=== PATIENT | male | born 1960 | race Caucasian/White ===

== ENCOUNTER → 2024-03-11 | Outpatient (CLI) | payer BC, SELFPAY ==
--- NOTE | 2024-03-11 | XR_ITS ---
Examination: PA lateral chest 2 views TECHNIQUE: Upright PA lateral chest 2 views Exam date and time: March 11, 2024 at 1306 hours INDICATIONS: Hemoptysis beginning November 2023. FINDINGS: 19 x 26 mm pulmonary mass right upper lobe Normal heart size Mild prominence left atrium Pulmonary mass left lower lobe posteriorly 5.1 x 5.2 cm No lobar pneumonia or pulmonary edema IMPRESSION: Pulmonary masses as above, differential would include lung carcinoma, pulmonary nodular metastatic disease Recommend CT chest post intravenous contrast follow-up
[2024-03-11 10:55] LABS: Misc Send Out* See Sep Rpt
[2024-03-11 11:15] LABS: Basophils # (Auto) 0.1 Thou/mm3 (0.0-0.2); Basophils % (Auto) 1 % (0-2.5); Eosinophils # (Auto) 0.3 Thou/mm3 (0.0-0.5); Eosinophils % (Auto) 3 % (0-10); Hematocrit 46.1 % (41.0-53.0); Hemoglobin 15.7 g/dL (13.5-16.0); Immature Granulocytes % (Auto) 0 % (0-0); Immature Granulocytes Auto 0.03 Thou/mm3 (0.00-0.00); Lymphocytes # (Auto) 2.1 Thou/mm3 (1.0-4.8); Lymphocytes % (Auto) 24 % (10-50); Mean Corpuscular HGB Conc 34.1 g/dl (31.0-37.0); Mean Corpuscular Hemoglobin 29.3 pg (25.0-35.0); Mean Corpuscular Volume 86 fL (80-100); Monocytes # (Auto) 0.7 Thou/mm3 (0.0-0.8); Monocytes % (Auto) 7 % (0-12); Neutrophils # (Auto) 5.6 Thou/mm3 (1.8-7.7); Neutrophils % (Auto) 65 % (37-80); Nucleated Red Blood Cell % 0 /100 WBC (0); Platelet Count 258 Thou/mm3 (140-440); RDW Standard Deviation 41.6 fL (35.1-43.9); Red Blood Count 5.35 Miln/mm3 (4.50-5.90); White Blood Count 8.7 Thou/mm3 (3.8-10.6)
[2024-03-11 11:26] LABS: Glucose Estimated Average 120 mg/dL (80-131); Hemoglobin A1C 5.8 % Hgb (4.8-6.0)
[2024-03-11 11:38] LABS: Alanine Aminotransferase 10 U/L (10-49); Albumin, Serum 4.4 gm/dL (3.4-4.8); Albumin/Globulin Ratio 1.8 (1.2-2.2); Alkaline Phosphatase 71 U/L (46-116); Anion Gap 7 (7-16); Aspartate Amino Transferase 10 U/L (0-34); BUN/Creatinine Ratio 13 Ratio (12-20); Bilirubin,Total 0.4 mg/dL (0.3-1.2); Blood Urea Nitrogen 12 mg/dL (9-23); Calcium 9.5 mg/dL (8.3-10.6); Calcium (Corrected) 9.5 mg/dL (8.5-10.1); Carbon Dioxide 28.5 mMol/L (20.0-31.0); Chloride 104 mMol/L (98-107); Creatinine (Component) 0.9 mg/dL (0.6-1.3); Globulin 2.4 gm/dL (2.3-3.5); Glucose 93 mg/dL (74-106); Osmolality,Calculated 277 (275-295); Potassium 4.3 mMol/L (3.4-5.1); Sodium 139 mMol/L (136-145); Thyroid Stimulating Hormone 1.12 uIU/mL (0.55-4.78); Total Protein 6.8 gm/dL (5.7-8.2); eGFR > 60 See Note
[2024-03-11 11:43] LABS: Ferritin 103 ng/mL (10.5-307.3); PSA Medicare Annual Scrn 2.07 ng/mL (0-4.00); T4 (Thyroxine) 7.6 mcg/dL (4.5-10.9); Total Iron Binding Capacity 305 mcg/dL (250-425)
[2024-03-17 06:52] LABS: Homocysteine* 14.6 umol/L (<11.4); Methylmalonic Acid, GC/MS/MS* 204 nmol/L (69-390)
== END | disposition home or self-care (01) ==
LOC: COPL 10:24 → CDIM 10:25 → COPL 10:46
PROVIDERS: PCP Family Medicine; Referring Provider Nurse Practitioner Family; Visit Provider Radiology Diagnostic Radiology
DX: R91.8 Other nonspecific abnormal finding of lung field (principal); D64.9 Anemia, unspecified; R53.83 Other fatigue; Z12.5 Encounter for screening for malignant neoplasm of prostate
CPT/HCPCS: 36415; 71046; 80053; 82728; 83036; 83090; 83550; 83921; 84153; 84436; 84443; 85025; G0103

== ENCOUNTER → 2024-03-13 | Outpatient (CLI) | payer BC, SELFPAY ==
[2024-03-17 06:51] LABS: Fecal Globin Result NOT DETECTED (NOT DETECTED)
== END | disposition home or self-care (01) ==
LOC: SLDO 08:23
PROVIDERS: PCP Family Medicine; Referring Provider Nurse Practitioner Family; Visit Provider Nurse Practitioner Family
DX: Z12.11 Encounter for screening for malignant neoplasm of colon (principal)
CPT/HCPCS: 82274; G0328

== ENCOUNTER → 2024-04-25 | Outpatient (CLI) | payer OTHER, SELFPAY ==
[2024-04-25 15:49] LABS: Basophils # (Auto) 0.1 Thou/mm3 (0.0-0.2); Basophils % (Auto) 1 % (0-2.5); Eosinophils # (Auto) 0.2 Thou/mm3 (0.0-0.5); Eosinophils % (Auto) 3 % (0-10); Hematocrit 49.4 % (41.0-53.0); Hemoglobin 16.2 g/dL (13.5-16.0); Immature Granulocytes % (Auto) 0 % (0-0); Immature Granulocytes Auto 0.03 Thou/mm3 (0.00-0.00); Lymphocytes % (Auto) 23 % (10-50); Mean Corpuscular HGB Conc 32.8 g/dl (31.0-37.0); Mean Corpuscular Hemoglobin 28.8 pg (25.0-35.0); Mean Corpuscular Volume 88 fL (80-100); Monocytes # (Auto) 0.7 Thou/mm3 (0.0-0.8); Monocytes % (Auto) 8 % (0-12); Neutrophils # (Auto) 5.8 Thou/mm3 (1.8-7.7); Neutrophils % (Auto) 66 % (37-80); Nucleated Red Blood Cell % 0 /100 WBC (0); Platelet Count 304 Thou/mm3 (140-440); RDW Standard Deviation 42.9 fL (35.1-43.9); Red Blood Count 5.63 Miln/mm3 (4.50-5.90); White Blood Count 8.8 Thou/mm3 (3.8-10.6)
[2024-04-25 16:08] LABS: Carcinoembryonic Antigen 2.1 ng/mL (0.0-5.0)
[2024-04-25 16:17] LABS: Alanine Aminotransferase 12 U/L (10-49); Albumin, Serum 4.3 gm/dL (3.4-4.8); Albumin/Globulin Ratio 1.9 (1.2-2.2); Alkaline Phosphatase 87 U/L (46-116); Anion Gap 7 (7-16); Aspartate Amino Transferase 14 U/L (0-34); BUN/Creatinine Ratio 9 Ratio (12-20); Bilirubin,Total 0.3 mg/dL (0.3-1.2); Blood Urea Nitrogen 9 mg/dL (9-23); Calcium 9.2 mg/dL (8.3-10.6); Calcium (Corrected) 9.2 mg/dL (8.5-10.1); Carbon Dioxide 28.6 mMol/L (20.0-31.0); Chloride 104 mMol/L (98-107); Globulin 2.3 gm/dL (2.3-3.5); Glucose 87 mg/dL (74-106); Osmolality,Calculated 277 (275-295); Potassium 4.2 mMol/L (3.4-5.1); Sodium 140 mMol/L (136-145); Total Protein 6.6 gm/dL (5.7-8.2); eGFR > 60 See Note
== END | disposition home or self-care (01) ==
LOC: COPL 14:14
PROVIDERS: PCP Family Medicine; Referring Provider Nurse Practitioner Family; Visit Provider Nurse Practitioner Family
DX: C34.90 Malignant neoplasm of unspecified part of unspecified bronchus or lung (principal)
CPT/HCPCS: 36415; 80053; 82378; 85025

== ENCOUNTER → 2024-04-30 | Outpatient (CLI) | payer OTHER, SELFPAY ==
--- NOTE | 2024-04-30 09:00 | XR_ITS ---
Examination: CT chest with intravenous contrast 2-D sagittal and coronal reconstructions Exam date and time: April 30, 2024 0923 hrs. Indications: Shortness of breath this week she (, masses in the largest on chest film March 11, 2024 CTDI:vol (mGy) 10.7 DLP: (mGycm) 428 Technique: Multiple axial sections of the thorax have been obtained. Sections have been obtained, 3 mm slice thickness. Mediastinal and lung density settings have been obtained. Intravenous contrast administered, 60 cc Isovue-370. 2-D sagittal, coronal images obtained. Low dose protocols were performed. One or more of the following dose reduction techniques were used; automated exposure control, adjustment of the mA and/or KV according to patient size, use of iterative reconstruction technique. Findings: No thoracic aortic aneurysmal dilatation Pulmonary artery segments are not enlarged Large subcarinal tumor mass, surrounding the left mainstem bronchus, transverse dimension 10 cm AP dimension 4.6 cm, cephalad caudad dimension 8.6 cm Pulmonary masses in the left lower lobe, the largest 4.6 cm Calcified granuloma in the right lobe Liver spleen intact No gallstones Left adrenal nodules, 23 mm 4 cm upper pole left renal cyst Impression: Large subcarinal tumor mass 10 x 4.6 x 8.6 cm Pulmonary masses left lower lobe, the largest 4.6 cm, pulmonary mass in the left lower lobe and mediastinal mass are amenable to CT-guided percutaneous biopsy for diagnosis
== END | disposition home or self-care (01) ==
PROVIDERS: Referring Provider Nurse Practitioner Family; Visit Provider Nurse Practitioner Family
DX: R22.2 Localized swelling, mass and lump, trunk (principal); R91.8 Other nonspecific abnormal finding of lung field
CPT/HCPCS: 71260; A4649; Q9967

== ENCOUNTER → 2024-05-09 | Outpatient (CLI) | payer OTHER, MEDICAID, SELFPAY | END | disposition home or self-care (01) | LOC: CCTX 14:12 | PROVIDERS: PCP Family Medicine; Referring Provider Nurse Practitioner Family; Visit Provider Nurse Practitioner Family | DX: Z53.8 Procedure and treatment not carried out for other reasons (principal) ==

== ENCOUNTER 2024-05-29 07:13 | Outpatient (CLI) | payer MEDICAID, SELFPAY ==
[2024-05-27 17:27] LABS: Basophils # (Auto) 0.1 Thou/mm3 (0.0-0.2); Basophils % (Auto) 1 % (0-2.5); Eosinophils # (Auto) 0.3 Thou/mm3 (0.0-0.5); Eosinophils % (Auto) 3 % (0-10); Hematocrit 45.9 % (41.0-53.0); Hemoglobin 15.3 g/dL (13.5-16.0); Immature Granulocytes % (Auto) 0 % (0-0); Immature Granulocytes Auto 0.02 Thou/mm3 (0.00-0.00); Lymphocytes # (Auto) 1.6 Thou/mm3 (1.0-4.8); Lymphocytes % (Auto) 18 % (10-50); Mean Corpuscular HGB Conc 33.3 g/dl (31.0-37.0); Mean Corpuscular Volume 87 fL (80-100); Monocytes # (Auto) 0.8 Thou/mm3 (0.0-0.8); Monocytes % (Auto) 9 % (0-12); Neutrophils % (Auto) 69 % (37-80); Nucleated Red Blood Cell % 0 /100 WBC (0); Platelet Count 301 Thou/mm3 (140-440); RDW Standard Deviation 40.8 fL (35.1-43.9); Red Blood Count 5.28 Miln/mm3 (4.50-5.90); White Blood Count 8.7 Thou/mm3 (3.8-10.6)
[2024-05-27 17:35] LABS: Partial Thromboplastin Time 30.6 Seconds (22.0-36.0); Prothrombin Time 11.4 Seconds (9.0-12.2)
[2024-05-29] VITALS (15 sets, daily range): BP systolic 91–160; BP diastolic 57–90; PULSE 45–66; RESP 12–23; TEMP 36.4–36.6; O2SAT 92–97; BMI 25.9
--- NOTE | 2024-05-29 08:30 | XR_ITS ---
Exam: CT-guided left lung biopsy. INDICATION: Left lung mass. COMPARISON: 04/30/2024. CTDI: 24.4 DLP: 646 PROCEDURE: After discussion of risks and benefits informed consent was obtained. Patient was brought to the CT scanner and placed in the right lateral decubitus position. Preliminary noncontrast enhanced CT was performed which showed large irregular left lung mass. The access site at the posterior lateral inferior lung was chosen for biopsy. The overlying skin was cleaned and draped in normal sterile surgical fashion. 10 cc of 1% lidocaine was used for local anesthesia. Conscious sedation was begun with direct continuous nursing supervision. Using CT guidance 18-gauge needle biopsy system was sequentially advanced into the targeted mass approximately 4 cm below the surface of the skin. Multiple core biopsy samples were obtained and given to pathology in real-time. Pathology deemed the samples adequate. Needle was withdrawn. Hemostasis was achieved. The access site was covered with sterile dressing. Postbiopsy CT was performed which demonstrated no evidence of pneumothorax or any other acute complication. Patient tolerated the procedure well and was transferred to the holding area for post procedural observation. IMPRESSION: Successful left lung biopsy as above..
[2024-05-29] MEDS: SODIUM CHLORIDE 0.9% 500 ML 500 ML 250 ML IV (09:30)
[2024-05-29] MEDS: fentaNYL CIT INJ 50 mCg/ML AMP 2ML 100 MCG IVP (09:36)
[2024-05-29] MEDS: LIDOCAINE INJ PF 1% 5 ML VIAL 16 ML INFL (09:36)
[2024-05-29] MEDS: MIDAZOLAM INJ 1 MG/ML VIAL 2 ML IV (09:36)
--- NOTE | 2024-05-29 10:55 | XR_ITS ---
Examination: AP chest single view Technique one AP semiupright portable chest single view Exam date and time: May 29, 2024 1102 hours Comparison April 11, 2024 Indications: Postbiopsy Findings: Significant opacity left hemithorax with shift of the mediastinum and heart to the left Pulmonary nodule right lung No definite pneumothorax Impression: Significant atelectasis and opacity in the left hemithorax, clinical correlation advised, short-term follow-up chest films recommended
--- NOTE | 2024-05-29 11:12 | XR_ITS ---
Examination: CT chest, without intravenous contrast. Sagittal and coronal 2-D reconstructions. Exam date and time: May 29, 2024 at 11:15 AM Comparison May 29, 2024 Indications: Lung cancer diagnosis, post biopsy pulmonary mass left lung today CTDI:vol (mGy) 9.90 DLP: (mGycm) 377 Technique: Multiple 3.0 mm axial sections of the chest to been obtained. Bone and lung density settings are obtained. Sagittal and coronal 2-D reconstructions have been obtained. Low dose protocols were performed. One or more of the following dose reduction techniques were used; automated exposure control, adjustment of the mA and/or KV according to patient size, use of iterative reconstruction technique. Findings: Lack of intravenous contrast limits assessment Large subcarinal and left lower lobe tumor mass is again depicted Significant atelectasis left lung Significant left pleural fluid noted The left mainstem bronchus is severely compressed secondary to the tumor masses in the left lung No visualized liver or splenic lesion Impression: Large tumor mass in the subcarinal and left lower lobe again depicted Significant left pleural fluid again noted More pronounced atelectasis left lung compared to the May 29, 2024 exam The left mainstem bronchus is severely compressed secondary to the tumor masses in the left lung
== END 2024-05-29 12:00 | disposition home or self-care (01) ==
PROVIDERS: Radiology Diagnostic Radiology; PCP Nurse Practitioner Family; Referring Provider Nurse Practitioner Family; Visit Provider Nurse Practitioner Family
DX: C34.32 Malignant neoplasm of lower lobe, left bronchus or lung (principal); Z01.812 Encounter for preprocedural laboratory examination
CPT/HCPCS: 32408; 36415; 71250; 77012; 85025; 85610; 85730; 99152; J2250; J3010; J3490; J7040

== ENCOUNTER 2024-06-18 09:54 | Outpatient (RCR) | payer MEDICAID, SELFPAY ==
--- NOTE | 2024-06-18 11:53 | CTCCONSULT_ITS ---
[facility] [address] [place], [place] [address] Consultation Note Date: 06/18/2024 MR#: [id number] Name: JOSSELIN HILLS : 1960 Dx: C34.32 Malignant neoplasm of lower lobe, left bronchus or lung Referring physician. CARLYLE Stark Reason for consultation. Patient with recent diagnosis of small cell CA the lung referred to the cancer center. History of Present Illness: Patient is a 63-year-old former smoker who stopped smoking 17 years ago was experiencing shortness of breath cough and subsequent CT scan of chest 04/30/2024 revealed a large left lower lobe pulmonary mass involving the subcarinal and mediastinal region.. It measured 10 x 8.6 x 4.6 cm. There is also a left adrenal nodule 23 mm and what appeared to be a left renal cyst. CT-guided needle biopsy May 29, 2024 revealed small cell CA. Patient had experienced some chest pain shortness of breath and exertion and some trouble swallowing and memory loss with no significant weight loss. Past Medical History: History of chickenpox COPD influenza measles Meds. 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 Review of Systems: Some chest discomfort and trouble swallowing denies significant weight loss chills fever Physical Exam: General: Well-appearing gentleman in no acute distress HEENT: Atraumatic no cephalic extraocular is intact no oral lesions no cervical or supraclavicular adenopathy CV: Decreased breath sounds left clear on the right ABD: Soft no organomegaly or tenderness EXT: No signs of clubbing or edema. Assessment: 1. Small cell CA involving significant amount of mediastinum and left lower lobe. Possible L adrenal met noted on CT. 2. PET Brain MRI for staging purposes 3 Dr. Fisher medical oncologist, port placement referrals made.. 4. Thank you for allowing me to evaluate this patient. Cc: CARLYLE Stark Electronically signed by: Regan Rob MD, KARYN 06/18/2024 11:50 AM
== END 2024-06-18 23:59 | disposition home or self-care (01) ==
LOC: SCTC 09:54
PROVIDERS: PCP Nurse Practitioner Family; Referring Provider Nurse Practitioner Family; Visit Provider Radiology Therapeutic Radiology
DX: C34.32 Malignant neoplasm of lower lobe, left bronchus or lung (principal); Z87.891 Personal history of nicotine dependence; E27.8 Other specified disorders of adrenal gland; N28.1 Cyst of kidney, acquired
CPT/HCPCS: 99213; G0463

== ENCOUNTER 2024-06-30 08:56 | Outpatient (CLI) | payer MEDICAID, SELFPAY ==
[2024-06-26 17:13] VITALS: BMI 22.6
[2024-06-27 11:28] LABS: Basophils # (Auto) 0.1 Thou/mm3 (0.0-0.2); Basophils % (Auto) 1 % (0-2.5); Eosinophils # (Auto) 0.2 Thou/mm3 (0.0-0.5); Eosinophils % (Auto) 2 % (0-10); Hematocrit 46.8 % (41.0-53.0); Hemoglobin 15.1 g/dL (13.5-16.0); Immature Granulocytes % (Auto) 0 % (0-0); Immature Granulocytes Auto 0.01 Thou/mm3 (0.00-0.00); Lymphocytes # (Auto) 1.5 Thou/mm3 (1.0-4.8); Lymphocytes % (Auto) 18 % (10-50); Mean Corpuscular HGB Conc 32.3 g/dl (31.0-37.0); Mean Corpuscular Hemoglobin 28.2 pg (25.0-35.0); Mean Corpuscular Volume 87 fL (80-100); Monocytes # (Auto) 0.7 Thou/mm3 (0.0-0.8); Monocytes % (Auto) 9 % (0-12); Neutrophils # (Auto) 5.7 Thou/mm3 (1.8-7.7); Neutrophils % (Auto) 70 % (37-80); Nucleated Red Blood Cell % 0 /100 WBC (0); Platelet Count 314 Thou/mm3 (140-440); RDW Standard Deviation 41.9 fL (35.1-43.9); Red Blood Count 5.36 Miln/mm3 (4.50-5.90); White Blood Count 8.2 Thou/mm3 (3.8-10.6)
[2024-06-27 11:38] LABS: INR 1.1 (0.9-1.3); Partial Thromboplastin Time 30.3 Seconds (22.0-36.0); Prothrombin Time 11.9 Seconds (9.0-12.2)
[2024-06-27 11:42] LABS: Blood Urea Nitrogen 8 mg/dL (9-23); Estimated Creatinine Clearance 73.2 mL/min (>60); eGFR > 60 See Note
[2024-06-30] VITALS (9 sets, daily range): BP systolic 103–133; BP diastolic 51–77; PULSE 47–54; RESP 11–21; TEMP 36.3–36.5; O2SAT 95–100
--- NOTE | 2024-06-30 09:00 | XR_ITS ---
Examination: IR venous implantation Port-A-Cath Ultrasound-guided needle placement right internal jugular vein. Fluoroscopy AP Chest, portable single view Exam date and time: June 30, 2024 0944 hours INDICATIONS: Lung cancer diagnosis, requiring long-term intravenous chemotherapy. Informed consent provided Technique: A timeout was completed, verifying correct patient, procedure, site, positioning, and special equipment if applicable The patient was placed in a dependent position appropriate for central line placement based on the vein to be cannulated. The patient's right neck was prepped and draped in sterile fashion. Maximum Sterile Barrier Technique used including cap, mask, sterile gown, sterile gloves, and sterile full body drape. If ultrasound technique used: sterile gel and sterile probe covers. Hand Hygiene performed using proper scrub, soap and water, or alcohol-based hand rub. Site right portable apparatus utilized to confirm patency of the right internal jugular vein Utilizing ultrasonographic guidance successful 21-gauge needle puncture into the left internal jugular vein Ultrasound images were recorded and stored. Successful micropuncture with a 21-gauge needle was performed. Subcutaneous pocket formed with blunt dissection in the upper right chest, connected to an 8 Bahamian 22 cm catheter placed through a venous sheath into the superior vena cava in proper position Successful aspiration of blood and flushing with heparinized saline is then performed in the 3 venous limbs. The catheter is sutured in place to the skin and a sterile dressing applied. Perfusion to the extremity distal to the point of catheter insertion was checked and found to be adequate The attending radiologist was present for the entire procedure Estimated blood loss2 cc. Findings: Under fluoroscopy, the tip of the catheter is in good position in the vena cava. Portable chest x-ray, post Port-A-Cath placement, as ordered. Impression: Successful ultrasound-guided needle placement right internal jugular vein. Successful IR venous implantation [id number] 0.1 minute radiation dose 2.96 milligray 1 spot fluoroscopic chest film. AP portable chest completion procedure demonstrates satisfactory position Port-A-Cath tip SVC. May use Port-A-Cath
[2024-06-30] MEDS: SODIUM CHLORIDE 0.9% 500 ML 500 ML 20 ML IV (10:10)
[2024-06-30] MEDS: ceFAZolin/D5W 1 GM IVPB 1 GM/50 ML BAG IV (10:20)
[2024-06-30] MEDS: LIDOCAINE 1% W/EPI 1:100K 20 ML VIAL 6 ML INFL (10:20)
[2024-06-30] MEDS: ceFAZolin INJ 1 GM VIAL TOPICAL (10:20)
[2024-06-30] MEDS: HEPARIN SOD LOCK SYR 100 UNIT/ML 500 UNIT STFIELD (10:20)
[2024-06-30] MEDS: LIDOCAINE INJ PF 1% 30 ML VIAL 5 ML INFL (10:20)
[2024-06-30] MEDS: fentaNYL CIT INJ 50 mCg/ML AMP 2ML IVP (10:49)
--- NOTE | 2024-06-30 14:44 | PC.NURSE ---
1140 patient is awake, alert, breathing unlabored, s/p port placement by dr cortez, dressing to right upper chest dry with no bleeding or hematoma, report received from Annmarie BLAKELY, patient to recover for 1 hr. 1224 patient awake, alert, breathing unlabored, pt able to eat food tray with no nausea or vomiting, able to ambulate to bathroom and void, meets discharge criteria, discharge instructions given to patient and brother in law [place], patient discharged home in wheelchair with all belongings.
== END 2024-06-30 12:24 | disposition home or self-care (01) ==
PROVIDERS: Radiology Diagnostic Radiology; PCP Family Medicine; Referring Provider Radiology Therapeutic Radiology; Visit Provider Radiology Therapeutic Radiology
DX: C34.32 Malignant neoplasm of lower lobe, left bronchus or lung (principal); Z01.812 Encounter for preprocedural laboratory examination
CPT/HCPCS: 36558; 36415; 76937; 77001; 82565; 84520; 85025; 85610; 85730; C1769; C1788; C1894; J0689; J0690; J1642; J3010; J3490; J7040; J7050

== ENCOUNTER → 2024-07-09 | Outpatient (CLI) | payer MEDICAID, SELFPAY ==
--- NOTE | 2024-07-09 12:30 | XR_ITS ---
Examination: MRI brain with intravenous contrast TECHNIQUE: Sagittal axial coronal MR brain images post intravenous administration 13 cc gadolinium Date and time: July 09, 2024 1302 hours INDICATIONS: Diagnosis malignant neoplasm lung, staging FINDINGS: Ventricles are normal in size No enhancing cerebellar or cerebral lesions No mass effect upon the ventricular system No effacement sulcal markings Pituitary is not enlarged IMPRESSION: No enhancing cerebellar or cerebral lesions
== END | disposition home or self-care (01) ==
LOC: SMRI 12:14
PROVIDERS: PCP Nurse Practitioner Family; Referring Provider Radiology Therapeutic Radiology; Visit Provider Radiology Therapeutic Radiology
DX: C34.32 Malignant neoplasm of lower lobe, left bronchus or lung (principal)
CPT/HCPCS: 70552; A9579

== ENCOUNTER 2024-07-18 10:20 | Outpatient (RCR) | payer MEDICAID, SELFPAY ==
--- NOTE | 2024-07-10 14:17 | CTCCONSULT_ITS ---
Patient: ENRIQUE HILLS : 1960 MR#: [id number] Page 3 of 5 CONSULTATION NOTE DATE OF CONSULTATION: 07/07/2024 NAME: ENRIQUE HILLS ACCOUNT: [id number] : 1960 AGE: 63 REFERRING PHYSICIAN: Adriel Appiah MD PRIMARY PHYSICIAN: REASON FOR VISIT: Advanced stage small cell lung cancer Enrique, a male with recently diagnosed small cell lung cancer, presented with shortness of breath. His history includes smoking (quit 17-18 years ago) and occupational asbestos exposure until November 2023. CT scan showed a large subcarinal tumor mass (10x4.6x8.6cm), left lower lobe mass (4.6cm), and left adrenal nodule (23mm). Biopsy confirmed small cell lung cancer. Treatment plan includes chemotherapy with carboplatin AUC 5 day 1, etoposide 100mg/m2 days 1-3, and atezolizumab 1200 mg day 1 every 21 days with anti-emetics, social work referral for support services, and nutritional supplements. His baseline hearing loss and recent widowhood were addressed in the care plan. ONCOLOGY HISTORY: DIAGNOSIS: Malignant neoplasm of lower lobe, left bronchus or lung [ICD10] C34.32 DATE OF DIAGNOSIS: 05/29/2024 STAGE/TNM: ADRIANA T4 NX M1 TREATMENT HISTORY: Care?Plan Start?Date Cycle Day Intent HISTORY OF PRESENT ILLNESS: Chief Complaint Recently diagnosed with small cell lung cancer, shortness of breath History of Present Illness Enrique Hills is a male patient with a history of smoking and asbestos exposure who was recently diagnosed with advanced small cell lung cancer. He presents for oncology evaluation and treatment initiation. Mr. Hills reports that he was diagnosed with small cell lung cancer on May 15, 2024, while he was in the hospital with his , who was dying from the same condition. He experienced significant shortness of breath at that time, which led to his hospitalization and subsequent diagnosis. Mr. Hills has a history of smoking 2-3 packs of cigarettes per day but quit approximately 17-18 years ago. 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 The patient recently moved from [place] to [place], partly due to health reasons and insurance coverage. He now has Medicaid, which allows him to access care in [place]. Mr. Hills is experiencing significant life stressors, including the recent loss of his on May 15, 2024, and challenges with managing paperwork and daily tasks without her support. He reports difficulty with reading, writing, and math skills, which is impacting his ability to manage his affairs independently. 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 Mr. Hills mentions having a hearing loss at baseline, which affects his ability to communicate effectively. He has limited social support, with a sister living in [place], [place], being his primary local contact. The patient reports challenges with nutrition and meal preparation since his 's passing. Review of Systems HEENT: Positive for hearing loss. Respiratory: Positive for shortness of breath. OTHER MEDICAL HISTORY/CONDITIONS: Small cell lung cancer - dx 06/08/24 COPD Depression Surgical repair left wrist fracture -t 2019 Laser surgery both eye - 8 yrs ago FAMILY HISTORY: Cancer History:?denies imediate family hx Patient?denies?family?cancer?history. 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 Tobacco Use:?Quit 18yrs ago - Smoked 203 PPD x 25yrs ETOH Use:?Quit 7 yrs ago- Drank beer every weekend x 25yrs Drug?Note:?Uses?gummies?to?sleep Social History Note:?Lives alone - sister lives nearby MEDICATIONS: 1. NexIUM Packet - 40 mg Daily Medications Last Reconciled by Donna Roche LVN on 06/23/2024 ALLERGIES: No Known Drug Allergies REVIEW OF SYSTEMS: A complete 14-point review of systems was performed and is negative except as noted in interval history. PHYSICAL EXAMINATION: VITAL SIGNS: Temperature?98.2, B/P?110/62, Height?69?inches, Oxygen?Saturation?95% Weight?151?lbs (Change?since?06/18/24:?-1?lbs) PAIN: 7 - Between severe and very severe pain ECOG Performance Status: 2 - Symptomatic; ambulatory; capable of self-care; >50% of waking hrs. not in bed GENERAL APPEARANCE: Appears well, in no apparent distress, appropriately interactive. HEENT: Normocephalic, no temporal wasting, normal conjunctiva, no scleral icterus, normal hearing, lips without lesions, neck normal range of motion. CARDIOVASCULAR: Not assessed. PULMONARY: Normal respiratory effort, no respiratory distress or use of accessory muscles, speaking in full sentences, no tachypnea. EXTREMITIES: No pedal edema or cyanosis. SKIN: Normal skin appearance. NEUROLOGIC: Alert and oriented x4. PSHYCHIATRIC: Appropriate affect, mood normal, behavior normal, intact thought and speech. LABORATORY DATA: I have personally reviewed and interpreted each of the patient?s relevant lab tests, abnormal findings are below: Date 06/27/24 ??WHITE?BLOOD?COUNT?(Thou/mm3) 8.2 ??RED?BLOOD?COUNT?(Miln/mm3) 5.36 ??HEMOGLOBIN?(gm/dl) 15.1 ??HEMATOCRIT?(%) 46.8 ??PLATELET?COUNT?(Thou/mm3) 314 ??NEUTROPHILS?%,?AUTO?(%) 70 ??LYMPH?%,?AUTO?(%) 18 ??NEUTROPHILS,?AUTO?(Thou/mm3) 5.7 ??BLOOD?UREA?NITROGEN?(mg/dL) 8?L ??CREATININE?(mg/dL) 1.00 Physical Examination HEENT: Hearing loss noted at baseline. 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 Small Cell Lung Cancer Assessment: Mr. Hills has been diagnosed with advanced stage small cell lung cancer. CT scan on 04-30-2024 revealed a large subcarinal tumor mass (10 x 4.6 x 8.6 cm) surrounding the left main bronchus, a pulmonary mass in the left lower lobe (4.6 cm), and a left adrenal nodule (23 mm). Biopsy of the left lung mass on 05-29-2024 confirmed small cell lung cancer. The patient has a history of smoking 2-3 packs per day but quit 17-18 years ago. 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 The cancer is considered aggressive and advanced, requiring immediate treatment initiation. Plan: - Initiate chemotherapy with carboplatin AUC 5 day 1, etoposide 100mg/m2 days 1- 3, and atezolizumab 1200 mg day 1 every 21 days - Administer anti-emetics prior to chemotherapy to manage nausea and vomiting - Await brain MRI results - Utilize existing port for treatment administration - Shipping Clerk patient on smoking cessation and alcohol abstinence - Provide nutritional supplement samples - Refer to social and political studies professor for assistance with paperwork and support services - Recommend application for Meals on Wheels program - Schedule follow-up appointment once treatment is approved and scheduled Hearing Loss Assessment: Mr. Hills has a baseline hearing loss, which may impact his ability to understand and follow medical instructions. Plan: - Ensure all instructions are provided in writing for the patient and his sister - Speak clearly and confirm patient understanding during consultations Psychosocial Concerns Assessment: Mr. Hills is recently , having lost his to small cell lung cancer on May 15. He expresses difficulty in managing paperwork and daily tasks without his 's assistance. The patient has limited education (6th grade) and reports challenges with reading, writing, and math. He has recently relocated from [place] to [place], purchasing a house near his sister in [place] for support and access to healthcare. Plan: - Refer to social and political studies professor for assistance with: - Paperwork completion, including half-way benefit applications - Identifying and accessing available support services - Encourage family involvement, particularly his sister and son, in care management - Provide written information on diagnosis, treatment plan, and support services ORDERS: Order # Description [id number] Comprehensive Metabolic Panel - 12 + CBC with Auto Diff + MD Follow Up 4 Week RETURN TO CLINIC: BILLING AND COMPLIANCE: I reviewed external records from providers outside my specialty as summarized above. I spent a total of 50 minutes on this patient?s care on the day of their visit excluding time spent related to any billed procedures. This time includes time spent with the patient as well as time spent documenting in the medical record, reviewing patients records and tests, obtaining history, placing orders, communicating with other healthcare professionals, counseling the patient, family or caregiver, and/or care coordination for the diagnoses above. Electronically Signed by: Ilya Fisher MD T: 10:17 AM CC: PCP: Referring: Adriel Appiah This document was completed utilizing speech recognition software. Grammatical errors, random word insertions, pronoun errors, and incomplete sentences are an occasional consequence of this system due to software limitations, ambient noise, and hardware issues. Any formal questions or concerns about the content, text or information contained within the body of this dictation should be directly addressed to the provider for clarification.
== END 2024-07-19 23:59 | disposition home or self-care (01) ==
LOC: SCTC 10:20
PROVIDERS: PCP Nurse Practitioner Family; Referring Provider Nurse Practitioner Family; Visit Provider Internal Medicine Hematology & Oncology
DX: C34.32 Malignant neoplasm of lower lobe, left bronchus or lung (principal); Z87.891 Personal history of nicotine dependence; Z77.090 Contact with and (suspected) exposure to asbestos; H91.90 Unspecified hearing loss, unspecified ear; Z55.6 Problems related to health literacy; Z63.4 Disappearance and death of family member
CPT/HCPCS: 99213; 99424; 99425; G0463

== ENCOUNTER 2024-08-18 13:07 | Outpatient (RCR) | payer MEDICAID, SELFPAY ==
[2024-08-18 15:14] LABS: Basophils # (Auto) 0.1 Thou/mm3 (0.0-0.2); Basophils % (Auto) 1 % (0-2.5); Eosinophils # (Auto) 0.1 Thou/mm3 (0.0-0.5); Eosinophils % (Auto) 1 % (0-10); Hemoglobin 13.8 g/dL (13.5-16.0); Immature Granulocytes % (Auto) 0 % (0-0); Immature Granulocytes Auto 0.05 Thou/mm3 (0.00-0.00); Lymphocytes # (Auto) 2.1 Thou/mm3 (1.0-4.8); Lymphocytes % (Auto) 14 % (10-50); Mean Corpuscular HGB Conc 32.9 g/dl (31.0-37.0); Mean Corpuscular Volume 82 fL (80-100); Monocytes # (Auto) 0.9 Thou/mm3 (0.0-0.8); Monocytes % (Auto) 6 % (0-12); Neutrophils # (Auto) 11.5 Thou/mm3 (1.8-7.7); Neutrophils % (Auto) 78 % (37-80); Nucleated Red Blood Cell % 0 /100 WBC (0); Platelet Count 470 Thou/mm3 (140-440); RDW Standard Deviation 43.7 fL (35.1-43.9); Red Blood Count 5.12 Miln/mm3 (4.50-5.90); White Blood Count 14.7 Thou/mm3 (3.8-10.6)
[2024-08-18 15:43] LABS: Alanine Aminotransferase 10 U/L (10-49); Albumin, Serum 4.3 gm/dL (3.4-4.8); Albumin/Globulin Ratio 1.5 (1.2-2.2); Alkaline Phosphatase 93 U/L (46-116); Anion Gap 9 (7-16); Aspartate Amino Transferase 16 U/L (0-34); BUN/Creatinine Ratio 15 Ratio (12-20); Bilirubin,Total 0.5 mg/dL (0.3-1.2); Blood Urea Nitrogen 12 mg/dL (9-23); Calcium 9.3 mg/dL (8.3-10.6); Calcium (Corrected) 9.3 mg/dL (8.5-10.1); Carbon Dioxide 23.1 mMol/L (20.0-31.0); Chloride 107 mMol/L (98-107); Creatinine (Component) 0.8 mg/dL (0.6-1.3); Globulin 2.8 gm/dL (2.3-3.5); Glucose 152 mg/dL (74-106); Osmolality,Calculated 280 (275-295); Potassium 3.9 mMol/L (3.4-5.1); Sodium 139 mMol/L (136-145); Thyroid Stimulating Hormone 1.12 uIU/mL (0.55-4.78); Total Protein 7.1 gm/dL (5.7-8.2); eGFR > 60 See Note
== END 2024-08-18 23:59 | disposition home or self-care (01) ==
LOC: SCTC 13:07
PROVIDERS: PCP Nurse Practitioner Family; Referring Provider Nurse Practitioner Family; Visit Provider Internal Medicine Hematology & Oncology
DX: C34.32 Malignant neoplasm of lower lobe, left bronchus or lung (principal); Z87.891 Personal history of nicotine dependence; Z77.090 Contact with and (suspected) exposure to asbestos; H91.90 Unspecified hearing loss, unspecified ear; Z55.5 Less than a high school diploma; Z55.6 Problems related to health literacy
CPT/HCPCS: 36591; 80053; 84443; 85025; A4216; J1642

== ENCOUNTER 2024-08-21 08:31 | Inpatient (IN) | payer MEDICAID, SELFPAY ==
[2024-08-21] VITALS (18 sets, daily range): BP systolic 95–138; BP diastolic 64–116; PULSE 134–178; RESP 15–31; TEMP 36.4–36.8; O2SAT 96–100; BMI 21.2
--- NOTE | 2024-08-21 08:46 | PD.EDCHEST ---
ED Chest Pain RME/HPI General Chief Complaint: Chest Pain Stated Complaint: CHEST PAIN Time Seen by Provider: 08/21/24 08:45 Arrival date/time: 08/21/24 08:31 Limitations: no limitations RME / HPI RME / HPI narrative: DR. MCKENZIE MAIN ED EVALUATION: 63 year old male with past medical history significant for recently diagnosed small cell lung cancer on 05/29/24 and COPD presents to the Emergency Department BIBA coming from the cancer treatment with atrial fibrillation with RVR with transient chest pain. Per EMS, patient had chest pain of 5/10 and after ASA and nitro it was 1/10. Patient received his second chemo treatment yesterday and after felt nauseated and was vomiting last night; today, he would have got his 3rd chemo treatment but felt chest pain, palpitations, shortness of breath, nausea, and vomiting. Per EMS, patient also complained of stabbing abdominal pain but upon arrival to ED he had a bowel movement and pain subsided. No history of atrial fibrillation in the past. Former smoker, quit 17-18 years ago. Related Data Home Medications ?Medication ?Instructions ?Recorded ?Confirmed clonazepam 2 mg tablet 2 mg PO QDAY 05/29/24 06/30/24 epinephrine 0.125 mg/actuation 1 puff inhalation Q6H PRN 05/29/24 06/30/24 aerosol inhaler (Primatene Mist) bronchodilation fluticasone fur. 100 mcg-umeclid 1 inh inhalation QDAY 05/29/24 06/30/24 62.5 mcg-vilant 25 mcg inhalat.powder (Trelegy Ellipta) folic acid 400 mcg tablet 800 mcg PO QDAY 05/29/24 06/30/24 omeprazole 40 mg capsule,delayed 40 mg PO QDAY 05/29/24 06/30/24 release acetaminophen 500 mg tablet 500 mg PO BID PRN pain 06/30/24 06/30/24 Allergies Allergy/AdvReac Type Severity Reaction Status Date / Time No Known Allergies Allergy Verified 08/21/24 08:48 Review of Systems Review of Systems Systems Reviewed: All systems reviewed, normal except as documented Past Medical History Past Medical History RESPIRATORY: Positive Sleep Apnea PSYCHO/SOCIAL: Positive Depression and Anxiety OTHER HISTORY: Positive Lung Cancer Surgical History SURGICAL: Positive Joint Replacement (LEFT WRIST) Social History SMOKING STATUS: Unknown if ever smoked SUBSTANCE USE: does not use ALCOHOL: Never ED Exam General Limitations: Present no limitations General appearance: Present alert and in no apparent distress Head Head exam: Present atraumatic, normocephalic and normal inspection Eye Eye exam: Present normal appearance, PERRL and EOMI ENT ENT exam: Present normal exam, normal oropharynx and mucous membranes moist Neck Neck exam: Present normal inspection, full ROM and trachea midline Chest Chest inspection: Present normal inspection and symmetric chest wall rise Respiratory Respiratory exam: Present other (diminished breath sounds in the left base; no rales, no crackles) Cardiovascular Cardiovascular exam: Present tachycardia and irregular rhythm (irregularly irregular) Abdominal Exam Abdominal exam: Present soft and normal bowel sounds Extremities Exam Extremities exam: Present normal inspection and full ROM Back Exam Back exam: Present normal inspection and full ROM Neurological Exam Neurological exam: Present alert, oriented X3 and CN II-XII intact Psychiatric Psychiatric exam: Present normal affect and normal mood Skin Skin exam: Present warm, dry, intact and normal color Course Quality Measures none Orders Category Date Time Status Admit to Inpatient Status Routine Admission 08/21/24 12:16 Active Patient Condition Routine Admission 08/21/24 12:16 Ordered Activity as Tolerated Routine Care 08/21/24 12:16 Ordered Bedside Blood Glucose Q2HX3 Care 08/21/24 09:46 Active COVID-19 Screening Questionnaire NOW Care 08/21/24 11:16 Active Fondant Cooker STAT Care 08/21/24 09:32 Active Continuous Pulse Oximetry ONCE Care 08/21/24 09:32 Active Decision to Admit X1 Care 08/21/24 11:15 Completed EKG (ED ONLY) *Do not use* NOW Care 08/21/24 09:32 Completed Insert IV STAT Care 08/21/24 09:32 Active Intake and Output Routine Care 08/21/24 09:33 Ordered Miscellaneous Nursing Order NOW Care 08/21/24 12:16 Active Notify provider NEEDED Care 08/21/24 12:16 Active Diet Regular Diet 08/21/24 Dinner Active EKG (ED Only) Stat Exams 08/21/24 09:32 Ordered XR chest 1V portable Stat Exams 08/21/24 09:32 Completed B-Type Natriuretic Peptide Stat Lab 08/21/24 10:02 Completed CBC AM DRAW Lab 08/22/24 05:00 Ordered CBC AM DRAW Lab 08/23/24 05:00 Ordered CBC AM DRAW Lab 08/24/24 05:00 Ordered CBC Stat Lab 08/21/24 10:02 Completed Comprehensive Metabolic Panel AM DRAW Lab 08/22/24 05:00 Ordered Comprehensive Metabolic Panel AM DRAW Lab 08/23/24 05:00 Ordered Comprehensive Metabolic Panel AM DRAW Lab 08/24/24 05:00 Ordered Comprehensive Metabolic Panel Stat Lab 08/21/24 10:02 Completed Lipid Panel AM DRAW Lab 08/22/24 05:00 Ordered Magnesium AM DRAW Lab 08/22/24 05:00 Ordered Magnesium AM DRAW Lab 08/23/24 05:00 Ordered Magnesium AM DRAW Lab 08/24/24 05:00 Ordered Magnesium Stat Lab 08/21/24 10:02 Completed Partial Thromboplastin Time AM DRAW Lab 08/22/24 05:00 Ordered Partial Thromboplastin Time Stat Lab 08/21/24 10:02 Completed Phosphorous AM DRAW Lab 08/22/24 05:00 Ordered Phosphorous AM DRAW Lab 08/23/24 05:00 Ordered Phosphorous AM DRAW Lab 08/24/24 05:00 Ordered Prothrombin Time with INR AM DRAW Lab 08/22/24 05:00 Ordered Prothrombin Time with INR Stat Lab 08/21/24 10:02 Completed Thyroid Stimulating Hormone AM DRAW Lab 08/22/24 05:00 Ordered Troponin I Stat Lab 08/21/24 10:02 Completed Acetaminophen Tab [Tylenol Tab] Med 08/21/24 12:15 Active 650 mg PO Q6H PRN Amiodarone 150 mg Ivpb [Nexterone Ivpb] Med 08/21/24 10:54 Discontinued 150 mg in 100 ml IV 600 mls/hr Amiodarone 360 mg Ivpb [Nexterone Ivpb] Med 08/21/24 17:04 Active 360 mg in 200 ml IV 16.667 mls/hr Amiodarone 360 mg Ivpb [Nexterone Ivpb] Med 08/21/24 11:04 Active 360 mg in 200 ml IV 33.333 mls/hr Apixaban [Eliquis] Med 08/21/24 21:00 Active 5 mg PO BID Aspirin Chew Med 08/21/24 09:32 Discontinued 324 mg PO X1 ONE Calcium Chloride 10% Abboject Med 08/21/24 09:46 Discontinued 10 ml IV X1 ONE Dextrose 10%-Water 1000 ml [D10w 1000 ml] 1,000 ml Med 08/21/24 10:00 Active IV 100 mls/hr Dextrose 50% Syr [D50w Syringe Abboject] Med 08/21/24 09:47 Discontinued 25 ml IV X1 ONE Diltiazem Inj [Cardizem Inj] Med 08/21/24 09:34 Discontinued 15 mg IV X1 ONE Docusate Sod [Colace] Med 08/21/24 12:15 Active 100 mg PO QDAY PRN HYDROcodone*/APAP 5/325 [[place] 5/325] Med 08/21/24 12:15 Active 1 tab PO Q4HR PRN Insulin Regular Med 08/21/24 09:46 Discontinued 10 unit IV X1 ONE Morphine Inj Med 08/21/24 09:35 Discontinued 2 mg IVP X1 ONE Ondansetron Inj [Zofran Inj] Med 08/21/24 09:32 Active 4 mg IVP Q1HR PRN Ondansetron Inj [Zofran Inj] Med 08/21/24 09:35 Discontinued 4 mg IVP X1 ONE Pantoprazole [Protonix] Med 08/22/24 09:00 Active 40 mg PO QDAY Senna [Senokot] Med 08/21/24 12:15 Active 1 tab PO QDAY PRN Sod Polystyrene Sulfon Susp [Kayexalate Susp] Med 08/21/24 09:46 Discontinued 30 gm SD X1 ONE Sodium Bicarb 8.4% SYR Med 08/21/24 09:46 Discontinued 50 ml IV X1 ONE Code Status Routine Oth 08/21/24 12:15 Ordered Oxygen Delivery NOW RT 08/21/24 09:32 Active Vital Signs Vital signs: Vital Signs Temperature 97.5 F 08/21/24 08:34 Pulse Rate 150 H 08/21/24 08:34 Respiratory Rate 28 H 08/21/24 08:34 Blood Pressure 129/86 H 08/21/24 08:34 Pulse Oximetry (%) 98 08/21/24 08:34 Oxygen Delivery Method Room Air 08/21/24 08:34 Chest Pain MDM Narrative MDM Narrative:: IImani am scribing for and in the presence of Dr. Mckenzie. Patient data External records reviewed:: [facility] previous records and EMS form Clinical information provided by:: patient and EMS Social determinants that could affect healthcare access:: other (specify) (Former smoker, quit 17-18 years ago.) Patient has the following chronic illnesses:: Recently diagnosed small cell lung cancer on 05/29/24 and COPD. No history of atrial fibrillation in the past. How is presenting disease/condition affected by chronic disease/condition?: exacerbated by Evaluation data The following diagnostics were reviewed and interpreted by me:: lab results, radiology exam(s) and EKG tracing(s) (My interpretation: EKG performed at 0907 hours, atrial fibrillation with RVR, rate 155, left bundle branch block) Lab and/or radiology exams considered but not ordered:: none Interpretation Summary: Procedure(s): XR chest 1V portable Accession Number(s): [id number] cc: Adriel Appiah; Rj Mckenzie MD; Jacob Veliz MD~ Examination: AP chest single view Technique one AP portable upright chest single view Date and time: August 21, 2024 0956 hours Comparison May 29, 2024 INDICATIONS: Chest pain shortness of breath today. FINDINGS: Extensive opacification left hemithorax with volume loss Shift of the heart and mediastinum to the left Right internal jugular Port-A-Cath tip satisfactory position Stable nodule in the right upper lobe IMPRESSION: Extensive left lung atelectasis, consider mucus plugging left mainstem bronchus Dictated By: Jacob Veliz MD Medications / Prescriptions Medications or Prescriptions considered but not ordered:: none Medication administrations:: Medication Administration History Acetaminophen (Acetaminophen 325 Mg Tablet) 650 mg PO Q6H PRN PRN Reason: Fever >100.4 or pain(1-3) Stop: 09/20/24 12:14 Hydrocodone Bitart/Acetaminophen (Hydrocodone/Apap 5/325 Tablet) 1 tab PO Q4HR PRN PRN Reason: PAIN SCALE 4-10(Mod-Sev Stop: 08/26/24 12:14 Apixaban (Apixaban 2.5 Mg Tablet) 5 mg PO BID DIRK Stop: 09/20/24 20:59 Docusate Sodium (Docusate Sod 100 Mg Capsule) 100 mg PO QDAY PRN; Protocol PRN Reason: CONSTIPATION Stop: 09/20/24 12:14 Dextrose (D10w 1000 Ml) 1,000 mls @ 100 mls/hr IV .Q10H DIRK Stop: 08/21/24 19:59 Last Admin: 08/21/24 09:59 Dose: Not Given Documented By: EAN Non-Admin Reason: Wrong Patient Amiodarone HCl/Dextrose (Nexterone Ivpb) 360 mg in 200 mls @ 33.333 mls/hr IV .Q6H ONE Stop: 08/21/24 17:03 Last Admin: 08/21/24 12:20 Dose: 33.333 mls/hr Documented By: EAN Amiodarone HCl/Dextrose (Nexterone Ivpb) 360 mg in 200 mls @ 16.667 mls/hr IV .Q12H DIRK Stop: 08/22/24 17:03 Ondansetron HCl (Ondansetron Inj 2 Mg/Ml Inj 2 Ml) 4 mg IVP Q1HR PRN PRN Reason: PERSISTENT NAUSEA OR VOMITING Pantoprazole Sodium (Pantoprazole 40 Mg Tablet) 40 mg PO QDAY DIRK Stop: 09/21/24 08:59 Sennosides (Senna Tablet) 1 tab PO QDAY PRN; Protocol PRN Reason: constipation Stop: 09/20/24 12:14 Discontinued Medications Aspirin (Aspirin 81 Mg Chew) 324 mg PO X1 ONE Stop: 08/21/24 09:33 Last Admin: 08/21/24 10:16 Dose: 324 mg Documented By: EAN Calcium Chloride (Calcium Chloride 10% Inj 10 Ml Syrg) 10 ml IV X1 ONE Stop: 08/21/24 09:47 Last Admin: 08/21/24 09:56 Dose: Not Given Documented By: EAN Non-Admin Reason: Wrong Patient Dextrose (Dextrose 50%-Water Inj 50 Ml Syringe) 25 ml IV X1 ONE Stop: 08/21/24 09:48 Last Admin: 08/21/24 09:58 Dose: Not Given Documented By: EAN Non-Admin Reason: Wrong Patient Diltiazem HCl (Diltiazem Inj 5 Mg/Ml Vial 5 Ml) 15 mg IV X1 ONE Stop: 08/21/24 09:35 Last Admin: 08/21/24 10:17 Dose: 15 mg Documented By: EAN Amiodarone HCl/Dextrose (Nexterone Ivpb) 150 mg in 100 mls @ 600 mls/hr IV .Q10M ONE Stop: 08/21/24 11:03 Last Infusion: 08/21/24 12:18 Dose: Infused Documented By: Admin: 08/21/24 12:07 Dose: 600 mls/hr Documented By: EAN Insulin Human Regular (Insulin Hum Regular 1 Unit/0.01 Ml (Per Unit)) 10 unit IV X1 ONE Stop: 08/21/24 09:47 Last Admin: 08/21/24 09:57 Dose: Not Given Documented By: EAN Non-Admin Reason: Wrong Patient Morphine Sulfate (Morphine Sulf Inj 10 Mg/Ml Vial) 2 mg IVP X1 ONE Stop: 08/21/24 09:36 Last Admin: 08/21/24 10:20 Dose: 2 mg Documented By: EAN Ondansetron HCl (Ondansetron Inj 2 Mg/Ml Inj 2 Ml) 4 mg IVP X1 ONE; Protocol Stop: 08/21/24 09:36 Last Admin: 08/21/24 10:17 Dose: 4 mg Documented By: EAN Sodium Bicarbonate (Sodium Bicarb Inj 8.4% Syr 50 Ml Syringe) 50 ml IV X1 ONE Stop: 08/21/24 09:47 Last Admin: 08/21/24 09:58 Dose: Not Given Documented By: EAN Non-Admin Reason: Wrong Patient Sodium Polystyrene Sulfonate (Sod Polystyrene Sulfon Susp 15 Gm/60 Ml Btl) 30 gm SD X1 ONE Stop: 08/21/24 09:47 Last Admin: 08/21/24 09:57 Dose: Not Given Documented By: EAN Non-Admin Reason: Wrong Patient see above if any Consultations Consultation(s) initiated? (list below): Yes Consultation #1 (Physician, Specialty, Details): Discussed test HPI, PMHx, lab, radiology results and/or management with resident working with the hospitalist. Will admit for further evaluation and management. Accepts patient for admission. Time: 11:18 Diagnosis Chest Pain Differential Diagnosis: fracture of rib, pneumothorax, atypical chest pain, costochondritis, chest pain and biliary colic Most likely diagnosis given after review of the tests above:: New onset atrial fibrillation with RVR Left lower lobe lung cancer Hypoxia Admission Indicated Admission indicated?: indicated Admission Request Was there a request for admission?: Yes Admission Attestation Admission request attestation: Discussed case with [] from Hospitalist service regarding admission. Discussed patients ED course, exam findings, labs, and radiology results. The Hospitalist [agrees,declines] to accept the patient for admission. Disposition Plan Disposition Plan: Admit Discharge Plan Plan Patient Disposition: Admit Acute Care w/in Hospital Problem List Clinical Impression: Atrial fibrillation with rapid ventricular response, Cancer of lower lobe of left lung, Hypoxia Impression comment: new onset atrial fibrillation with RVR
--- NOTE | 2024-08-21 09:32 | XR_ITS ---
Examination: AP chest single view Technique one AP portable upright chest single view Date and time: August 21, 2024 0956 hours Comparison May 29, 2024 INDICATIONS: Chest pain shortness of breath today. FINDINGS: Extensive opacification left hemithorax with volume loss Shift of the heart and mediastinum to the left Right internal jugular Port-A-Cath tip satisfactory position Stable nodule in the right upper lobe IMPRESSION: Extensive left lung atelectasis, consider mucus plugging left mainstem bronchus
[2024-08-21 10:08] LABS: Basophils # (Auto) 0.1 Thou/mm3 (0.0-0.2); Basophils % (Auto) 0 % (0-2.5); Eosinophils # (Auto) 0.0 Thou/mm3 (0.0-0.5); Eosinophils % (Auto) 0 % (0-10); Hematocrit 42.2 % (41.0-53.0); Hemoglobin 13.9 g/dL (13.5-16.0); Immature Granulocytes Auto 0.10 Thou/mm3 (0.00-0.00); Lymphocytes # (Auto) 1.1 Thou/mm3 (1.0-4.8); Lymphocytes % (Auto) 7 % (10-50); Mean Corpuscular HGB Conc 32.9 g/dl (31.0-37.0); Mean Corpuscular Hemoglobin 27.0 pg (25.0-35.0); Mean Corpuscular Volume 82 fL (80-100); Monocytes # (Auto) 0.3 Thou/mm3 (0.0-0.8); Monocytes % (Auto) 2 % (0-12); Neutrophils # (Auto) 15.5 Thou/mm3 (1.8-7.7); Neutrophils % (Auto) 91 % (37-80); Nucleated Red Blood Cell # 0.00 Thou/mm3 (0.00-0.00); Nucleated Red Blood Cell % 0 /100 WBC (0); Platelet Count 418 Thou/mm3 (140-440); RDW Standard Deviation 44.1 fL (35.1-43.9); Red Blood Count 5.15 Miln/mm3 (4.50-5.90); White Blood Count 17.0 Thou/mm3 (3.8-10.6)
[2024-08-21] MEDS: ASPIRIN 81 MG CHEW 324 MG PO (10:16)
[2024-08-21] MEDS: ONDANSETRON INJ 2 MG/ML INJ 2 ML 4 MG IVP ×2 (10:17→19:19)
[2024-08-21] MEDS: DILTIAZEM INJ 5 MG/ML VIAL 5 ML 15 MG IV (10:17)
[2024-08-21] MEDS: MORPHINE SULF INJ 10 MG/ML VIAL 2 MG IVP (10:20)
[2024-08-21 10:30] LABS: INR 1.2 (0.9-1.3); Partial Thromboplastin Time 29.5 Seconds (22.0-36.0); Prothrombin Time 13.1 Seconds (9.0-12.2)
[2024-08-21 10:42] LABS: Alanine Aminotransferase 8 U/L (10-49); Albumin, Serum 3.8 gm/dL (3.4-4.8); Albumin/Globulin Ratio 1.4 (1.2-2.2); Alkaline Phosphatase 78 U/L (46-116); Anion Gap 10 (7-16); Aspartate Amino Transferase 16 U/L (0-34); BUN/Creatinine Ratio 10 Ratio (12-20); Bilirubin,Total 0.8 mg/dL (0.3-1.2); Blood Urea Nitrogen 8 mg/dL (9-23); Calcium 9.0 mg/dL (8.3-10.6); Calcium (Corrected) 9.2 mg/dL (8.5-10.1); Carbon Dioxide 19.4 mMol/L (20.0-31.0); Chloride 106 mMol/L (98-107); Creatinine (Component) 0.8 mg/dL (0.6-1.3); Estimated Creatinine Clearance 86.0 mL/min (>60); Globulin 2.7 gm/dL (2.3-3.5); Glucose 182 mg/dL (74-106); Magnesium 1.9 mg/dL (1.6-2.6); Osmolality,Calculated 273 (275-295); Potassium 4.5 mMol/L (3.4-5.1); Sodium 135 mMol/L (136-145); Total Protein 6.5 gm/dL (5.7-8.2); Troponin I 0.036 ng/mL (0.0-0.045); eGFR > 60 See Note
[2024-08-21 10:45] LABS: B-Type Natriuretic Peptide 753 pg/mL (0-100)
[2024-08-21] MEDS: AMIODARONE 150 MG IVPB 150 MG/100 ML BAG 600 MG IV (12:07)
[2024-08-21] MEDS: AMIODARONE 360 MG IVPB 360 MG/200 ML BAG 33.333 MG IV (12:20)
--- NOTE | 2024-08-21 13:26 | PC.CC ---
Patient is a 63 year-old male who presents to the hospital for Afib/w RVR. Katelyn CARUSO made [id number] contact with patient. ASW introduced self, role, and reason for visit. Patient appeared alert and oriented to self, location, and situation. Patient was pleasant and engaged in initial assessment. Patient confirmed information on the demographics. Patient reports that in the event he is unable to make his own medical decisions his decision maker would be his nephew, Miah Indy . Patient reports he ambulates independently and is able to complete his own ADLs. Patient does not require any DME and is not a dialysis patient. Patient's primary provider is Adriel Appiah and pharmacy of choice is [facility]. Upon discharge the patient plans to return home. information services tech to follow up with any discharge needs.
--- NOTE | 2024-08-21 13:27 | ESHP_ITS ---
<Statement entered by Hector Liriano MD - 08/24/24 15:00> I have discussed and was present for the essential components of the history, physical examination, diagnosis, and treatment plan with the resident. I agree with the patient's care as documented by the resident and amended herein by me. Hector Liriano MD FACP. <Statement entered by Soren Garcia MD - 08/21/24 15:43> I discussed and supervised with the quality internship physician who took care of this patient. I personally saw and examined the patient. I agree with most of the assessment and plan. Disclaimer: Despite multiple revisions, due to the dictation software being used, the document bellow may not be free of grammatical errors including phonetic/typographic errors. However, this does not deter from our commitment to providing health care in the patient's best interest in mind. Plan of care discussed with attending Physician Dr. Heri Garcia MD PGY-3 Documentation for date of: 08/21/24 HPI History of Present Illness History of present illness: Patient is a 63 year old male with a past medical history of recently diagnosed lung cancer () and COPD, BIBA from his cancer treatment center due to chest pain and shortness of breath. Patient stated that both chest pain and shortness of breath started yesterday morning after he finished with his 2nd cancer treatment. Patient described the pain as constant, non-radiating, and pressure like in the center of his chest that gradually worsened from the time after his cancer treatment until EMS gave him aspirin and nitro the next day, shortly before arrival to the ED, where his chest pain and shortness of breath improved. It was reported that in the ED he was tachycardic and was give diltiazem, causing his blood pressure to be low to 90s systolic for which he was given a bolus with mild improvement in blood pressure. Patient states that breathing deeply worsens his pain. Patient currently says his chest pain isn't too bad now, rated it 4/10, still endorses it as constant, non-radiating, pressure in the center of his chest. Review of Systems Review of Systems Narrative Review of Systems: Patient currently denies fever, cough, shortness of breath, leg pain or swelling, palpitations, nausea, diaphoresis, arm pain, abdominal pain Past Medical History Past Medical History RESPIRATORY: Positive Sleep Apnea PSYCHO/SOCIAL: Positive Depression and Anxiety OTHER HISTORY: Positive Lung Cancer Surgical History SURGICAL: Positive Joint Replacement (LEFT WRIST) Social History SMOKING STATUS: Unknown if ever smoked SUBSTANCE USE: does not use ALCOHOL: Never Past Medical History Comments PMH COMMENT: Past Medical History: Lung Cancer and COPD Family History: Patient is unaware of any relevant family history Surgical History: Patient noted only surgical history for broken wrist Social History: Smokin pk years, but quit about 18 years ago. Alcohol: occasional alcohol use. 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 Exam Vital Signs Temp Pulse Resp BP Pulse Ox O2 Del Method O2 Flow Rate 98.3 F 152 H 29 H 100/64 98 Nasal Cannula 2 08/21/24 10:24 08/21/24 12:20 08/21/24 10:24 08/21/24 12:20 08/21/24 10:24 08/21/24 10:24 08/21/24 10:24 Narrative Exam GENERAL APPEARANCE: ?AxOx4, generally well-appearing M, no acute distress. HEENT: ?NC, AT. MMM. EOMI, clear conjunctiva, oropharynx clear. NECK: ?Supple without lymphadenopathy.? No stiffness or restricted ROM. HEART:? Tachycardic, irregular rhythm, normal S1/S2 LUNGS:? CTAB, moving air well. No crackles or wheezes are heard. ABDOMEN: ?Soft, nontender, nondistended with good bowel sounds heard. BACK: No CVAT, no obvious deformity. EXTREMITIES: ?Without cyanosis, clubbing or edema. NEUROLOGICAL: ?Grossly nonfocal. Alert and oriented, moving all 4 extremities. CN not formally tested but appear grossly intact. Skin: ?Warm and dry without any rash. Results: Labs 08/21/24 10:02 08/21/24 10:02 Labs: Short CBC 08/21/24 Range/Units 10:02 WBC 17.0 H (3.8-10.6) Thou/mm3 Hgb 13.9 (13.5-16.0) g/dL Hct 42.2 (41.0-53.0) % Plt Count 418 D (140-440) Thou/mm3 BMP 08/21/24 10:02 Sodium 135 L Potassium 4.5 D Chloride 106 Carbon Dioxide 19.4 L BUN 8 L Creatinine 0.8 Glucose 182 H Calcium 9.0 Cardiac Enzymes 08/21/24 Range/Units 10:02 Troponin I 0.036 (0.0-0.045) ng/mL Liver Function 08/21/24 Range/Units 10:02 Total Bilirubin 0.8 (0.3-1.2) mg/dL AST 16 (0-34) U/L ALT 8 L (10-49) U/L Alkaline Phosphatase 78 (46-116) U/L Albumin 3.8 D (3.4-4.8) gm/dL Quality Measures Quality Measures VTE prophylaxis Medications Home Medications and Allergies Home Medications ?Medication ?Instructions ?Recorded ?Confirmed ?Type clonazepam 2 mg tablet 2 mg PO QDAY 05/29/24 History epinephrine 0.125 mg/actuation 1 puff inhalation Q6H P RN 05/29/24 06/30/24 History aerosol inhaler (Primatene Mist) bronchodilation fluticasone fur. 100 mcg-umeclid 1 inh inhalation QDAY 05/29/24 06/30/24 History 62.5 mcg-vilant 25 mcg inhalat.powder (Trelegy Ellipta) folic acid 400 mcg tablet 800 mcg PO QDAY 05/29/2402/12 History omeprazole 40 mg capsule,delayed 40 mg PO QDAY 5 06/30/24 History release acetaminophen 500 mg tablet 500 mg PO BID PRN pain 02/1206/30/24 History Allergies Allergy/AdvReac Type Severity Reaction Status Date / Time No Known Allergies Allergy Verified 08/21/24 08:48 Visit Medications Acetaminophen (Acetaminophen 325 Mg Tablet) 650 mg PO Q6H PRN PRN Reason: Fever >100.4 or pain(1-3) Stop: 09/20/24 12:14 Hydrocodone Bitart/Acetaminophen (Hydrocodone/Apap 5/325 Tablet) 1 tab PO Q4HR PRN PRN Reason: PAIN SCALE 4-10(Mod-Sev Stop: 08/26/24 12:14 Apixaban (Apixaban 2.5 Mg Tablet) 5 mg PO BID DIRK Stop: 09/20/24 20:59 Docusate Sodium (Docusate Sod 100 Mg Capsule) 100 mg PO QDAY PRN; Protocol PRN Reason: CONSTIPATION Stop: 09/20/24 12:14 Dextrose (D10w 1000 Ml) 1,000 mls @ 100 mls/hr IV .Q10H DIRK Stop: 08/21/24 19:59 Last Admin: 08/21/24 09:59 Dose: Not Given Amiodarone HCl/Dextrose (Nexterone Ivpb) 360 mg in 200 mls @ 33.333 mls/hr IV .Q6H ONE Stop: 08/21/24 17:03 Last Admin: 08/21/24 12:20 Dose: 33.333 mls/hr Amiodarone HCl/Dextrose (Nexterone Ivpb) 360 mg in 200 mls @ 16.667 mls/hr IV .Q12H [facility] Stop: 08/22/24 17:03 Ondansetron HCl (Ondansetron Inj 2 Mg/Ml Inj 2 Ml) 4 mg IVP Q1HR PRN PRN Reason: PERSISTENT NAUSEA OR VOMITING Pantoprazole Sodium (Pantoprazole 40 Mg Tablet) 40 mg PO QDAY DIRK Stop: 09/21/24 08:59 Sennosides (Senna Tablet) 1 tab PO QDAY PRN; Protocol PRN Reason: constipation Stop: 09/20/24 12:14 Discontinued Medications Aspirin (Aspirin 81 Mg Chew) 324 mg PO X1 ONE Stop: 08/21/24 09:33 Last Admin: 08/21/24 10:16 Dose: 324 mg Calcium Chloride (Calcium Chloride 10% Inj 10 Ml Syrg) 10 ml IV X1 ONE Stop: 08/21/24 09:47 Last Admin: 08/21/24 09:56 Dose: Not Given Dextrose (Dextrose 50%-Water Inj 50 Ml Syringe) 25 ml IV X1 ONE Stop: 08/21/24 09:48 Last Admin: 08/21/24 09:58 Dose: Not Given Diltiazem HCl (Diltiazem Inj 5 Mg/Ml Vial 5 Ml) 15 mg IV X1 ONE Stop: 08/21/24 09:35 Last Admin: 08/21/24 10:17 Dose: 15 mg Amiodarone HCl/Dextrose (Nexterone Ivpb) 150 mg in 100 mls @ 600 mls/hr IV .Q10M ONE Stop: 08/21/24 11:03 Last Infusion: 08/21/24 12:18 Dose: Infused Insulin Human Regular (Insulin Hum Regular 1 Unit/0.01 Ml (Per Unit)) 10 unit IV X1 ONE Stop: 08/21/24 09:47 Last Admin: 08/21/24 09:57 Dose: Not Given Morphine Sulfate (Morphine Sulf Inj 10 Mg/Ml Vial) 2 mg IVP X1 ONE Stop: 08/21/24 09:36 Last Admin: 08/21/24 10:20 Dose: 2 mg Ondansetron HCl (Ondansetron Inj 2 Mg/Ml Inj 2 Ml) 4 mg IVP X1 ONE; Protocol Stop: 08/21/24 09:36 Last Admin: 08/21/24 10:17 Dose: 4 mg Sodium Bicarbonate (Sodium Bicarb Inj 8.4% Syr 50 Ml Syringe) 50 ml IV X1 ONE Stop: 08/21/24 09:47 Last Admin: 08/21/24 09:58 Dose: Not Given Sodium Polystyrene Sulfonate (Sod Polystyrene Sulfon Susp 15 Gm/60 Ml Btl) 30 gm ID X1 ONE Stop: 08/21/24 09:47 Last Admin: 08/21/24 09:57 Dose: Not Given Assessment & Plan Plan Patient is a 63 year old male with a past medical history of recently diagnosed lung cancer () and COPD, BIBA from his cancer treatment center due to chest pain and shortness of breath, found to have new onset A-fib w/ RVR. #Acute Chest Pain, improving #New Onset A-fib w/ RVR Patient presented after having chest pain and shortness of breath following chemotherapy treatment. ECG showed new onset a-fib with RVR. ED gave diltiazem, which softened blood pressure to 90s systolic, given bolus which mildly improved BP. BNP elevated at 753, Troponin 0.036. Was given amiodarone drip but continues to be in a-fib Plan: - Cardiology consulted, appreciate recommendations - Monitor for chest pain #Small Cell Lung Cancer #Nausea, Vomiting Patient recently diagnosed with lung cancer 05/2024. His oncologist is Dr. Ilya Fisher MD. - home meds include norco for pain, ondansetron and prochlorperazine for nausea and vomiting - will restart appropriately #COPD - Pending medication reconciliation #Insomnia - Patient takes home meds zolpidem - will replace with melatonin while inpatient #Depression - Patient takes home med of mirtazapine 15 mg - will restart appropriately #Anorexia - Patient takes home med of megestrol 20 mg - will restart appropriately Health Maintenance: Disp: Pt is currently admitted to floors for further management of new onset a- fib FEN: Regular Diet DVT: Eliquis Code: Full Code - The patient's plan was discussed with attending Dr. Heri Moctezuma MD PGY1 Internal Medicine
[2024-08-21] MEDS: HYDROcodone/APAP 5/325 TABLET 1 TAB PO (15:26)
[2024-08-21] MEDS: Magnesium Sulfate 2 GM Ivpb 2 GM/50 ML BAG IV (16:30)
--- NOTE | 2024-08-21 16:50 | PC.NURSE ---
md diamond contacted about elevated hr in 150's no new orders received.
--- NOTE | 2024-08-21 17:22 | ESCONSULT_ITS ---
<Statement entered by Ashlie Grossman MD - 08/23/24 18:47> The patient personally examined evaluated by me appears to be clinically stable despite having A-fib RVR patient has underlying pulmonary malignancy left lung collapse atelectasis pleural effusion also developed A-fib RVR agree with treatment plan recommendation for IV amiodarone followed by oral amiodarone for rate control will use diltiazem. Evaluate the patient and examined with PGY 2 Dr. Latosha Hoffman MD will continue to monitor the patient closely HPI Data of Consult Requesting Physician: Hector Liriano MD Admitting Provider: Hector Liriano MD Attending Provider: Hector Liriano MD Primary Care Provider: CARLYLE Stark Consult Narrative History of present illness: Mr. Guzman is a 63-year-old male with past medical history significant for recently diagnosed small cell carcinoma of the lung currently undergoing chemo therapy. Patient has finished 2 patient is of chemo and was scheduled for the third 1 today at the [facility] cancer center and was found to be in A-fib with RVR and was sent to the ED. Patient states he has been having worsening shortness of breath over the past one year and chest discomfort for a while. Pt states when he was diagnosed with lung cancer he attributed the chest pain to the cancer. Chest pain is worse on exertion and inspiration. Patient denies orthopnea or PND. Prior to his diagnosis of lung cancer patient denies any history of shortness of breath, palpitations, chest pain, chest pressure or discomfort. Patient states he was in perfect health to his knowledge. Patient's approximately 3 months ago due to losing his 30-year-old which prompted him to get a chest CT and was found to have cancer. Patient denies any previous cardiac history. Cardiology is consulted for new onset A-fib with RVR In the ED patient is given push of diltiazem 15 mg x 1 and started on amiodarone drip PMH: Recently diagnosed lung cancer PSH: No past surgical history SH: Formerly smoked 1 pack of cigarette daily for approximately 25 to 30 years patient quit 18 years ago. Socially drinks alcohol and denies any drug use including meth or cocaine cc:: cc: Hector Liriano MD Review of Systems Review of Systems Systems Reviewed: All systems reviewed, normal except as documented Exam Vital Signs Temp Pulse Resp BP Pulse Ox O2 Del Method O2 Flow Rate 98.1 F 144 H 15 109/79 97 Room Air 1 08/21/24 13:26 08/21/24 16:34 08/21/24 16:34 08/21/24 16:34 08/21/24 16:34 08/21/24 16:34 08/21/24 15:51 Narrative Exam GENERAL: A&Ox3 . Awake, Not in acute distress NEURO: no focal neurological deficits HEENT: Atraumatic, Normocephalic. mucous membranes moist. Eyes open, symmetrical, & clear HEART: irregular rate LUNGS: decrease breath sounds on left ABDOMEN: soft, non-distended, non-tender, bowel sounds heard, no guarding or rebound tenderness SKIN: No Rash or ecchymoses EXTREMITIES: No edema, tenderness, able to move all 4 extremities, pedal pulses palpated Results Labs 08/21/24 10:02 08/21/24 10:02 Labs: Short CBC 08/21/24 Range/Units 10:02 WBC 17.0 H (3.8-10.6) Thou/mm3 Hgb 13.9 (13.5-16.0) g/dL Hct 42.2 (41.0-53.0) % Plt Count 418 D (140-440) Thou/mm3 BMP 08/21/24 10:02 Sodium 135 L Potassium 4.5 D Chloride 106 Carbon Dioxide 19.4 L BUN 8 L Creatinine 0.8 Glucose 182 H Calcium 9.0 Cardiac Enzymes 08/21/24 Range/Units 10:02 Troponin I 0.036 (0.0-0.045) ng/mL Liver Function 08/21/24 Range/Units 10:02 Total Bilirubin 0.8 (0.3-1.2) mg/dL AST 16 (0-34) U/L ALT 8 L (10-49) U/L Alkaline Phosphatase 78 (46-116) U/L Albumin 3.8 D (3.4-4.8) gm/dL Quality Measures Quality Measures VTE prophylaxis Medications Home Medications and Allergies Home Medications ?Medication ?Instructions ?Recorded ?Confirmed ?Type clonazepam 2 mg tablet 2 mg PO QDAY 05/29/24 History epinephrine 0.125 mg/actuation 1 puff inhalation Q6H P RN 05/29/24 06/30/24 History aerosol inhaler (Primatene Mist) bronchodilation fluticasone fur. 100 mcg-umeclid 1 inh inhalation QDAY 05/29/24 06/30/24 History 62.5 mcg-vilant 25 mcg inhalat.powder (Trelegy Ellipta) folic acid 400 mcg tablet 800 mcg PO QDAY 05/29/2402/12 History omeprazole 40 mg capsule,delayed 40 mg PO QDAY 5 06/30/24 History release acetaminophen 500 mg tablet 500 mg PO BID PRN pain 02/1206/30/24 History Allergies Allergy/AdvReac Type Severity Reaction Status Date / Time No Known Allergies Allergy Verified 08/21/24 08:48 Visit Medications Acetaminophen (Acetaminophen 325 Mg Tablet) 650 mg PO Q6H PRN PRN Reason: Fever >100.4 or pain(1-3) Stop: 09/20/24 12:14 Hydrocodone Bitart/Acetaminophen (Hydrocodone/Apap 5/325 Tablet) 1 tab PO Q4HR PRN PRN Reason: PAIN SCALE 4-10(Mod-Sev Stop: 08/26/24 12:14 Last Admin: 08/21/24 15:26 Dose: 1 tab Apixaban (Apixaban 2.5 Mg Tablet) 5 mg PO BID DIRK Stop: 09/20/24 20:59 Clonazepam (Clonazepam 0.5 Mg Tablet) 1 mg PO BID PRN PRN Reason: anxiety Stop: 08/26/24 20:59 Docusate Sodium (Docusate Sod 100 Mg Capsule) 100 mg PO QDAY PRN; Protocol PRN Reason: CONSTIPATION Stop: 09/20/24 12:14 Dextrose (D10w 1000 Ml) 1,000 mls @ 100 mls/hr IV .Q10H DIRK Stop: 08/21/24 19:59 Last Admin: 08/21/24 09:59 Dose: Not Given Amiodarone HCl/Dextrose (Nexterone Ivpb) 360 mg in 200 mls @ 16.667 mls/hr IV .Q12H DIRK Stop: 08/22/24 17:03 Magnesium Sulfate (Magnesium Sulfate Ivpb) 2 gm in 50 mls @ 25 mls/hr IV X1 ONE Stop: 08/21/24 18:07 Last Admin: 08/21/24 16:30 Dose: 25 mls/hr Megestrol Acetate (Megestrol Acet 20 Mg Tablet) 20 mg PO BID DIRK Stop: 09/20/24 20:59 Mirtazapine (Mirtazapine 15 Mg Tablet) 15 mg PO HS DIRK Stop: 09/20/24 20:59 Ondansetron HCl (Ondansetron Inj 2 Mg/Ml Inj 2 Ml) 4 mg IVP Q1HR PRN PRN Reason: PERSISTENT NAUSEA OR VOMITING Pantoprazole Sodium (Pantoprazole 40 Mg Tablet) 40 mg PO QDAY DIRK Stop: 09/21/24 08:59 Prochlorperazine Maleate (Prochlorperazine Maleate 5 Mg Tablet) 5 mg PO Q6HR PRN PRN Reason: NAUSEA OR VOMITING Stop: 09/20/24 16:11 Sennosides (Senna Tablet) 1 tab PO QDAY PRN; Protocol PRN Reason: constipation Stop: 09/20/24 12:14 Discontinued Medications Aspirin (Aspirin 81 Mg Chew) 324 mg PO X1 ONE Stop: 08/21/24 09:33 Last Admin: 08/21/24 10:16 Dose: 324 mg Calcium Chloride (Calcium Chloride 10% Inj 10 Ml Syrg) 10 ml IV X1 ONE Stop: 08/21/24 09:47 Last Admin: 08/21/24 09:56 Dose: Not Given Clonazepam (Clonazepam 0.5 Mg Tablet) 1 mg PO TID PRN PRN Reason: ANXIETY Stop: 08/26/24 21:59 Dextrose (Dextrose 50%-Water Inj 50 Ml Syringe) 25 ml IV X1 ONE Stop: 08/21/24 09:48 Last Admin: 08/21/24 09:58 Dose: Not Given Diltiazem HCl (Diltiazem Inj 5 Mg/Ml Vial 5 Ml) 15 mg IV X1 ONE Stop: 08/21/24 09:35 Last Admin: 08/21/24 10:17 Dose: 15 mg Amiodarone HCl/Dextrose (Nexterone Ivpb) 150 mg in 100 mls @ 600 mls/hr IV .Q10M ONE Stop: 08/21/24 11:03 Last Infusion: 08/21/24 12:18 Dose: Infused Amiodarone HCl/Dextrose (Nexterone Ivpb) 360 mg in 200 mls @ 33.333 mls/hr IV .Q6H ONE Stop: 08/21/24 17:03 Last Admin: 08/21/24 12:20 Dose: 33.333 mls/hr Insulin Human Regular (Insulin Hum Regular 1 Unit/0.01 Ml (Per Unit)) 10 unit IV X1 ONE Stop: 08/21/24 09:47 Last Admin: 08/21/24 09:57 Dose: Not Given Morphine Sulfate (Morphine Sulf Inj 10 Mg/Ml Vial) 2 mg IVP X1 ONE Stop: 08/21/24 09:36 Last Admin: 08/21/24 10:20 Dose: 2 mg Ondansetron HCl (Ondansetron Inj 2 Mg/Ml Inj 2 Ml) 4 mg IVP X1 ONE; Protocol Stop: 08/21/24 09:36 Last Admin: 08/21/24 10:17 Dose: 4 mg Prochlorperazine Maleate (Prochlorperazine Maleate 5 Mg Tablet) 10 mg PO Q6HR PRN PRN Reason: NAUSEA OR VOMITING Stop: 09/20/24 16:11 Sodium Bicarbonate (Sodium Bicarb Inj 8.4% Syr 50 Ml Syringe) 50 ml IV X1 ONE Stop: 08/21/24 09:47 Last Admin: 08/21/24 09:58 Dose: Not Given Sodium Polystyrene Sulfonate (Sod Polystyrene Sulfon Susp 15 Gm/60 Ml Btl) 30 gm MO X1 ONE Stop: 08/21/24 09:47 Last Admin: 08/21/24 09:57 Dose: Not Given Assessment & Plan Plan Mr. Guzman is a 63-year-old male with past medical history significant for recently diagnosed small cell carcinoma of the lung currently undergoing chemo therapy. Pt is admitted to for management of new onset a-fib with RVR. #New onset A-fib with RVR -Pt was found to be in a-fib with rate of 170's, which is new onset, denies any prior cardiac history. -Pt has worsening shortness of breath over the past year, denies orthpnea or PND -Patient complains of midsternal exertional and pleuritic chest pain which he noticed approximately 3 months ago. -EKG is evident of afib with RVR -BNP 753, Troponin < 0.036 [id number] score 0 HAS-BLED 0 Wells criteria for PE: 2.5, moderate risk with 16.2 % chance of PE Plan: -Telemetry monitoring -Pt is given push of diltiazam 15mg x1 by the ED -Started on amiodarone drip, despite 3rd bag pt continues to have rapid HR in the 150's therefore Additional diltiazem 60mg is given x1 -Diltiazam 60mg QID PO is ordered -No anticoagulation needed at this time due to low [id number] score, and afib likely due to lung pathology. Pt is also at higher risk for hemoptysis with anticoagulation -Echocardiogram ordered -Once pt is rate controlled then will transition to amiodarone PO #Reactive leukocytosis #Small cell carcinoma of the lung #Left lung atelectasis -Management as per primary team Assessment and plan discussed with my attending physician Dr.Reddy Dr. Hoffman (PGY-2)- Internal medicine resident
[2024-08-21 18:26] LABS: Troponin I 0.044 ng/mL (0.0-0.045)
[2024-08-21] MEDS: AMIODARONE 360 MG IVPB 360 MG/200 ML BAG 16.667 MG IV (19:10)
[2024-08-21] MEDS: DILTIAZEM INJ 5 MG/ML VIAL 5 ML 20 MG IV (20:57)
[2024-08-21] MEDS: DILTIAZEM 30 MG TABLET 60 MG PO (20:58)
[2024-08-21] MEDS: MEGESTROL ACET 20 MG TABLET PO (20:59)
[2024-08-21] MEDS: MIRTAZAPINE 15 MG TABLET PO (20:59)
--- NOTE | 2024-08-21 22:20 | PC.NURSE ---
REPORT RECEIVED FROM [facility].
--- NOTE | 2024-08-21 23:48 | PC.NURSE ---
PT RESTING ON BED, ALERT AND ORIENTED X 4, PT DENIES PAIN. NO ACUTE DISTRESS. AMIODARONE DRIP INFUSING AT 16.667 ML/HR. HR STILL A.FIB 120-150'S. PT DENIES CHEST DISCOMFORT. CALL LIGHT WITHIN REACH.
[2024-08-22] VITALS (12 sets, daily range): BP systolic 100–119; BP diastolic 63–85; PULSE 74–156; RESP 20–30; TEMP 36.3–37.2; O2SAT 97–99; BMI 22.5
--- NOTE | 2024-08-22 01:20 | EKG_ITS ---
[facility] Test Date: 2024-08-22 Pat Name: JOSSELIN HILLS [facility] [employer]: LEE ANN : 1960 Requested By: Maxime Min Order Number: [id number] Reading MD: Maxime Min Measurements Intervals [place] Rate: 156 P: 184 GA: 77 QRS: -57 QRSD: 133 T: 109 QT: 301 QTc: 486 Interpretive Statements SINUS TACHYCARDIA WITH SHORT GA INTERVAL, POSSIBLE ATRIAL FLUTTER MARKED LEFT AXIS DEVIATION LEFT BUNDLE BRANCH BLOCK No previous ECG available for comparison /[id number]/[id number]
[2024-08-22] MEDS: DILTIAZEM INJ 5 MG/ML VIAL 5 ML 15 MG IV (02:15)
[2024-08-22] MEDS: AMIODARONE 360 MG IVPB 360 MG/200 ML BAG 16.667 MG IV (05:33)
[2024-08-22] MEDS: DILTIAZEM 30 MG TABLET 60 MG PO ×4 (05:34→20:41)
[2024-08-22 06:43] LABS: Basophils # (Auto) 0.0 Thou/mm3 (0.0-0.2); Basophils % (Auto) 0 % (0-2.5); Eosinophils # (Auto) 0.0 Thou/mm3 (0.0-0.5); Eosinophils % (Auto) 0 % (0-10); Hematocrit 39.1 % (41.0-53.0); Hemoglobin 12.7 g/dL (13.5-16.0); Immature Granulocytes Auto 0.06 Thou/mm3 (0.00-0.00); Lymphocytes # (Auto) 1.5 Thou/mm3 (1.0-4.8); Lymphocytes % (Auto) 13 % (10-50); Mean Corpuscular HGB Conc 32.5 g/dl (31.0-37.0); Mean Corpuscular Hemoglobin 26.6 pg (25.0-35.0); Mean Corpuscular Volume 82 fL (80-100); Monocytes # (Auto) 0.2 Thou/mm3 (0.0-0.8); Monocytes % (Auto) 1 % (0-12); Neutrophils # (Auto) 10.3 Thou/mm3 (1.8-7.7); Neutrophils % (Auto) 85 % (37-80); Nucleated Red Blood Cell # 0.00 Thou/mm3 (0.00-0.00); Nucleated Red Blood Cell % 0 /100 WBC (0); Platelet Count 397 Thou/mm3 (140-440); RDW Standard Deviation 45.3 fL (35.1-43.9); Red Blood Count 4.77 Miln/mm3 (4.50-5.90); White Blood Count 12.1 Thou/mm3 (3.8-10.6)
[2024-08-22 07:02] LABS: INR 1.1 (0.9-1.3); Partial Thromboplastin Time 32.4 Seconds (22.0-36.0); Prothrombin Time 12.2 Seconds (9.0-12.2)
[2024-08-22 07:25] LABS: Alanine Aminotransferase 8 U/L (10-49); Albumin, Serum 3.7 gm/dL (3.4-4.8); Albumin/Globulin Ratio 1.5 (1.2-2.2); Alkaline Phosphatase 71 U/L (46-116); Anion Gap 11 (7-16); Aspartate Amino Transferase 14 U/L (0-34); BUN/Creatinine Ratio 18 Ratio (12-20); Bilirubin,Total 0.5 mg/dL (0.3-1.2); Blood Urea Nitrogen 11 mg/dL (9-23); Calcium 8.6 mg/dL (8.3-10.6); Calcium (Corrected) 8.8 mg/dL (8.5-10.1); Carbon Dioxide 24.0 mMol/L (20.0-31.0); Cardiac Risk Estimate 6.4 RATIO (4.0-6.7); Chloride 103 mMol/L (98-107); Cholesterol 160 mg/dL (132-200); Creatinine (Component) 0.6 mg/dL (0.6-1.3); Estimated Creatinine Clearance 121.2 mL/min (>60); Globulin 2.5 gm/dL (2.3-3.5); Glucose 113 mg/dL (74-106); HDL Cholesterol 25 mg/dL (40-60); LDL Cholesterol,Calculated 108 mg/dL (0-130); Magnesium 2.2 mg/dL (1.6-2.6); Osmolality,Calculated 276 (275-295); Phosphorous 3.1 mg/dL (2.4-5.1); Potassium 4.1 mMol/L (3.4-5.1); Sodium 138 mMol/L (136-145); Thyroid Stimulating Hormone 1.45 uIU/mL (0.55-4.78); Total Protein 6.2 gm/dL (5.7-8.2); Triglycerides 137 mg/dL (30-150); eGFR > 60 See Note
[2024-08-22] MEDS: MEGESTROL ACET 20 MG TABLET PO ×2 (08:46→20:42)
[2024-08-22] MEDS: PANTOPRAZOLE 40 MG TABLET PO (08:46)
--- NOTE | 2024-08-22 10:37 | XR_ITS ---
Examination: CTA chest with intravenous contrast 2-D reconstructions 3-D reconstructions, vascular Date and time of exam: August 22, 2024, 1152 hrs. Indications: Onset chest pain today CTDI: vol (mGy) 13.6 DLP: (mGycm) 258 Technique: Multiple axial sections of the thorax have been obtained. 3 mm slice thickness, from below the hemidiaphragms to above the apices of the lungs. Mediastinal and lung density settings have been obtained. 2-D sagittal and coronal reconstructions. 3-D angiographic renderings, 3-D volume renderings, 3D post processing, vascular maximum intensity projections obtained. Contrast administered is 80 cc Isovue-300. Low dose protocols were performed. One or more of the following dose reduction techniques were used; automated exposure control, adjustment of the mA and/or KV according to patient size, use of iterative reconstruction technique. Findings: AP dimension ascending thoracic aorta 3.2 cm, no thoracic aortic dissection No pulmonary artery filling defects Large left pleural effusion with atelectasis left lung Poorly defined masslike area in the subcarinal region, unclear etiology This area measures at least 8 cm and may be partially cystic Mild to moderate enlargement cardiac contour No visualized liver splenic lesions No pancreatic mass Upper pole left renal cyst, 4.7 cm Impression: Negative for pulmonary artery emboli Large left pleural effusion with atelectasis left lung Poorly defined masslike area subcarinal region, at least 8 cm, which may be partially cystic Recommend MRI chest without contrast follow-up to better assess this subcarinal mass
--- NOTE | 2024-08-22 11:29 | PC.SS ---
Rounding: Pt still experiencing AFIB, DC plan home when stable
--- NOTE | 2024-08-22 16:22 | PD.RESPRO ---
Documentation for date of: 08/22/24 Subjective Subjective Interval history: Patient was seen and examined at the bedside. Overnight, patient had rapid heart rate therefore diltiazem was given by the night resident. Patient continued to have rapid heart rate and diltiazem 60 mg 4 times daily was placed by lighting engineering technician. This morning, patient denied any chest pain and reported to have mild improvement in shortness of breath. He stated that he does not have any appetite and feels weak. Exam Vital Signs Temp Pulse Resp BP Pulse Ox O2 Del Method O2 Flow Rate 97.7 F 75 24 H 108/67 99 Room Air 1 08/22/24 12:00 08/22/24 12:00 08/22/24 12:00 08/22/24 12:00 08/22/24 12:08/22/24 12:08/22/24 04:00 Narrative Exam GENERAL APPEARANCE: AxOx4, generally well-appearing male in no acute distress. Saturating well on room air. HEENT: NC, AT. MMM. EOMI, clear conjunctiva, oropharynx clear. NECK: Supple without lymphadenopathy. No stiffness or restricted ROM. port A cath seen HEART: Irregular rate and irregular rhythm, normal S1/S2, no m/r/g LUNGS: CTAB, moving air well. No crackles or wheezes are heard. ABDOMEN: Soft, nontender, nondistended with good bowel sounds heard. BACK: No CVAT, no obvious deformity. EXTREMITIES: Without cyanosis, clubbing or edema. NEUROLOGICAL: Grossly nonfocal. Alert and oriented, moving all 4 extremities. CN not formally tested but appear grossly intact. Observed to ambulate with normal gait. Skin: Warm and dry without any rash. Psych: Mildly anxious however cooperative with appropriate mood and affect Objective Labs 08/22/24 04:38 08/22/24 04:38 Labs: Laboratory Results - last 24 hr 08/21/24 08/22/24 17:54 04:38 WBC 12.1 H RBC 4.77 Hgb 12.7 L Hct 39.1 L MCV 82 MCH 26.6 MCHC 32.5 RDW Std Deviation 45.3 H Plt Count 397 Neut % (Auto) 85 H Lymph % (Auto) 13 [place] % (Auto) 1 Eos % (Auto) 0 Baso % (Auto) 0 Neut # (Auto) 10.3 H Lymph # (Auto) 1.5 [place] # (Auto) 0.2 Eos # (Auto) 0.0 Baso # (Auto) 0.0 Immature Gran # (Auto) 0.06 H Absolute Nucleated RBC 0.00 Immature Gran % 1 H Nucleated RBC % 0 PT 12.2 INR 1.1 APTT 32.4 Sodium 138 Potassium 4.1 Chloride 103 Carbon Dioxide 24.0 Anion Gap 11 BUN 11 Creatinine 0.6 Estim Creat Clear Calc 121.2 eGFR > 60 BUN/Creatinine Ratio 18 Glucose 113 H D Calculated Osmolality 276 Calcium 8.6 Corrected Calcium 8.8 Phosphorus 3.1 Magnesium 2.2 Total Bilirubin 0.5 AST 14 ALT 8 L Alkaline Phosphatase 71 Troponin I 0.044 Total Protein 6.2 Albumin 3.7 Globulin 2.5 Albumin/Globulin Ratio 1.5 Triglycerides 137 Cholesterol 160 LDL Cholesterol, Calc 108 HDL Cholesterol 25 L Cholesterol/HDL Ratio 6.4 TSH 1.45 Quality Measures Quality Measures VTE prophylaxis (Heparin subcut) Assessment & Plan Assessment Current Active Medications: Generic Name Dose Route Start Last Admin Trade Name Freq PRN Reason Stop Dose Admin Acetaminophen 650 mg 08/21/24 12:15 Acetaminophen 325 Mg Tablet PO 09/20/24 12:14 Q6H PRN Fever >100.4 or pain(1-3) Hydrocodone Bitart/Acetaminophen 1 tab 08/21/24 12:15 08/21/24 15:26 Hydrocodone/Apap 5/325 Tablet PO 08/26/24 12:14 1 tab Q4HR PRN Administration PAIN SCALE 4-10(Mod-Sev Amiodarone HCl 200 mg 08/22/24 21:00 Amiodarone Hcl 200 Mg Tablet PO 09/21/24 20:59 BID DIRK Clonazepam 1 mg 08/21/24 16:20 Clonazepam 0.5 Mg Tablet PO 08/26/24 20:59 BID PRN anxiety Diltiazem HCl 60 mg 08/22/24 06:00 08/22/24 11:25 Diltiazem 30 Mg Tablet PO 09/21/24 05:59 60 mg QID DIRK Administration Docusate Sodium 100 mg 08/21/24 12:15 Docusate Sod 100 Mg Capsule PO 09/20/24 12:14 QDAY PRN CONSTIPATION Protocol Amiodarone HCl/Dextrose 360 mg in 200 mls @ 16.667 mls/hr 08/21/24 17:04 08/22/24 05:33 Nexterone Ivpb IV 08/22/24 17:03 16.667 mls/hr .Q12H DIRK Administration Megestrol Acetate 20 mg 08/21/24 21:00 08/22/24 08:46 Megestrol Acet 20 Mg Tablet PO 09/20/24 20:59 20 mg BID DIRK Administration Mirtazapine 15 mg 08/21/24 21:00 08/21/24 20:59 Mirtazapine 15 Mg Tablet PO 09/20/24 20:59 15 mg HS DIRK Administration Ondansetron HCl 4 mg 08/21/24 09:32 08/21/24 19:19 Ondansetron Inj 2 Mg/Ml Inj 2 Ml IVP 4 mg Q1HR PRN Administration PERSISTENT NAUSEA OR VOMITING Protocol Pantoprazole Sodium 40 mg 08/22/24 09:00 08/22/24 08:46 Pantoprazole 40 Mg Tablet PO 09/21/24 08:59 40 mg QDAY DIRK Administration Prochlorperazine Maleate 5 mg 08/21/24 16:16 Prochlorperazine Maleate 5 Mg Tablet PO 09/20/24 16:11 Q6HR PRN NAUSEA OR VOMITING Protocol Sennosides 1 tab 08/21/24 12:15 Senna Tablet PO 09/20/24 12:14 QDAY PRN constipation Protocol Plan Patient is a 63 year old male with a past medical history of recently diagnosed lung cancer () and COPD, BIBA from his cancer treatment center due to chest pain and shortness of breath, found to have new onset A-fib w/ RVR. #New Onset A-fib w/ RVR currently rate controlled Patient presented after having chest pain and shortness of breath following chemotherapy treatment. ECG showed new onset a-fib with RVR. ED gave diltiazem, which softened blood pressure to 90s systolic, given bolus which mildly improved BP. BNP elevated at 753, Troponin 0.036. Was given amiodarone drip but continues to be in a-fib [id number] of 0 Due to moderate risk of PE according to Wells score CTA was performed CTA showed Large left pleural effusion with atelectasis left lung. Masslike area subcarinal region, at least 8 cm, which may be partially cystic. Echocardiogram showed EF 50 to 55%. Aortic valve sclerosis with mild aortic regurg. No evidence of pericardial effusion. Plan: -Switch to amiodarone 200 mg twice daily once 3rd bag is finished -Started Cardizem 60 mg 4 times daily per cardiology recs -Amiodarone drip per protocol - Cardiology consulted, appreciate recommendations - Monitor for chest pain - Keep mag above 2 and potassium above 4 #Small Cell Lung Cancer on chemotherapy Patient recently diagnosed with lung cancer 05/2024. His oncologist is Dr. Ilya Fisher MD. ?CTA showed Large left pleural effusion with atelectasis left lung. Masslike area subcarinal region, at least 8 cm, which may be partially cystic - home meds include norco for pain, ondansetron and prochlorperazine for nausea and vomiting - Follow-up with oncologist as outpatient #COPD - Breathing treatment as needed #Insomnia - Patient takes home meds zolpidem - Consider melatonin for sleep #Depression - Patient takes home med of mirtazapine 15 mg - Resumed home medication #Anorexia likely related to malignancy - Patient takes home med of megestrol 20 mg - Resumed home medication #Leukocytosis likely reactive, improving #Normocytic anemia ? Daily CBC ? PRBC if hemoglobin drops below 7 ? Monitor for signs of fever or infection Health Maintenance: Disp: Pt is currently admitted to floors for further management of new onset a-fib currently rate controlled. FEN: Regular Diet GI prophylaxis: Protonix 40 mg p.o. daily DVT: Heparin SC Code: Full Code Patient was seen and discussed with attending physician, Dr. Nataly Garcia MD PGY 3 Attending Provider Attestation/Addendum Brittney, Velvet Ingram DO, attest that I was physically present for the siddiqui portions of the service and evaluated the patient with the resident and I reviewed and discussed the case with the resident and agree with the resident's findings and plans of care as documented above Patient seen and eval this a.m. Patient states that he is feeling somewhat improved today. He endorses having some chest pain on deep inspiration. However, patient is not in any acute distress. He is on room air and resting comfortably at time of evaluation. There is mild diminished breath sounds in the left lung [place]. Chest x-ray was reviewed and shows whiteout of left lung [place], some parenchyma/penetration noted in left upper lobe. Previous chest CT done in May shows that the left mainstem bronchus is severely compressed by tumor mass. Will reevaluate compression and CTA and rule out pulmonary embolism as well. If patient continues have significant compression, may benefit from palliative endobronchial stent placement. Pulmonology will be available tomorrow and will have pulm review chest CT. Patient back in sinus rhythm at this time and rate controlled. Case discussed with cardiology, echocardiogram appears to be within normal limits. Will switch to amiodarone oral once drip is done this evening. Continue with Cardizem otherwise. Will follow with pulmonology recommendations.
--- NOTE | 2024-08-22 18:27 | ESPR_ITS ---
<Statement entered by Ashlie Grossman MD - 08/23/24 18:55> I personally examined the patient with Dr. Hoffman's PGY 2 A-fib rate controlled well patient clinically tolerating well now so far cardiac echo showed no evidence of pericardial effusion preserved ejection fraction mild mitral aortic vegetation. Documentation for date of: 08/22/24 Subjective Subjective Interval history: pt is seen at bedside this morning. Pt is rate controlled with the addition of diltiazam and the amiodarone is transitioned to PO. Pt has remained rate controlled in sinus rhythm through out the night and day. Echo is largely normal with EF of 50-55%, no evidence of right heart straining and no pericardial effusions. Pt's symtoms are likely due to the malignancy, no cardiac involvement is noted at this time. Pt may continue amiodarone and diltiazam and no anticoagulation needed at this time. vitals are stable and labs are with in normal limits. Pt has no cardiac complaints at this time. Exam Vital Signs Temp Pulse Resp BP Pulse Ox O2 Del Method O2 Flow Rate 97.7 F 81 23 H 119/68 99 Room Air 1 08/22/24 16:00 08/22/24 17:33 08/22/24 16:00 08/22/24 17:33 08/22/24 16:00 08/22/24 16:00 08/22/24 16:00 Narrative Exam GENERAL: A&Ox3 . Awake, Not in acute distress NEURO: no focal neurological deficits HEENT: Atraumatic, Normocephalic. mucous membranes moist. Eyes open, symmetrical, & clear HEART: normal heart sounds LUNGS: decrease breath sounds on left ABDOMEN: soft, non-distended, non-tender, bowel sounds heard, no guarding or rebound tenderness SKIN: No Rash or ecchymoses EXTREMITIES: No edema, tenderness, able to move all 4 extremities, pedal pulses palpated Objective Labs 08/22/24 04:38 08/22/24 04:38 Labs: Laboratory Results - last 24 hr 08/22/24 04:38 WBC 12.1 H RBC 4.77 Hgb 12.7 L Hct 39.1 L MCV 82 MCH 26.6 MCHC 32.5 RDW Std Deviation 45.3 H Plt Count 397 Neut % (Auto) 85 H Lymph % (Auto) 13 [place] % (Auto) 1 Eos % (Auto) 0 Baso % (Auto) 0 Neut # (Auto) 10.3 H Lymph # (Auto) 1.5 [place] # (Auto) 0.2 Eos # (Auto) 0.0 Baso # (Auto) 0.0 Immature Gran # (Auto) 0.06 H Absolute Nucleated RBC 0.00 Immature Gran % 1 H Nucleated RBC % 0 PT 12.2 INR 1.1 APTT 32.4 Sodium 138 Potassium 4.1 Chloride 103 Carbon Dioxide 24.0 Anion Gap 11 BUN 11 Creatinine 0.6 Estim Creat Clear Calc 121.2 eGFR > 60 BUN/Creatinine Ratio 18 Glucose 113 H D Calculated Osmolality 276 Calcium 8.6 Corrected Calcium 8.8 Phosphorus 3.1 Magnesium 2.2 Total Bilirubin 0.5 AST 14 ALT 8 L Alkaline Phosphatase 71 Total Protein 6.2 Albumin 3.7 Globulin 2.5 Albumin/Globulin Ratio 1.5 Triglycerides 137 Cholesterol 160 LDL Cholesterol, Calc 108 HDL Cholesterol 25 L Cholesterol/HDL Ratio 6.4 TSH 1.45 Quality Measures Quality Measures VTE prophylaxis (Heparin subcut) Assessment & Plan Assessment Current Active Medications: Generic Name Dose Route Start Last Admin Trade Name Freq PRN Reason Stop Dose Admin Acetaminophen 650 mg 08/21/24 12:15 Acetaminophen 325 Mg Tablet PO 09/20/24 12:14 Q6H PRN Fever >100.4 or pain(1-3) Hydrocodone Bitart/Acetaminophen 1 tab 08/21/24 12:15 08/21/24 15:26 Hydrocodone/Apap 5/325 Tablet PO 08/26/24 12:14 1 tab Q4HR PRN Administration PAIN SCALE 4-10(Mod-Sev Amiodarone HCl 200 mg 08/22/24 21:00 Amiodarone Hcl 200 Mg Tablet PO 09/21/24 20:59 BID DIRK Clonazepam 1 mg 08/21/24 16:20 Clonazepam 0.5 Mg Tablet PO 08/26/24 20:59 BID PRN anxiety Diltiazem HCl 60 mg 08/22/24 06:00 08/22/24 17:33 Diltiazem 30 Mg Tablet PO 09/21/24 05:59 60 mg QID DIRK Administration Docusate Sodium 100 mg 08/21/24 12:15 Docusate Sod 100 Mg Capsule PO 09/20/24 12:14 QDAY PRN CONSTIPATION Protocol Heparin Sodium (Porcine) 5,000 unit 08/22/24 22:00 Heparin Sod Inj 5000 Unit/Ml Vial SC 09/05/24 21:59 Q8HR DIRK Megestrol Acetate 20 mg 08/21/24 21:00 08/22/24 08:46 Megestrol Acet 20 Mg Tablet PO 09/20/24 20:59 20 mg BID DIRK Administration Mirtazapine 15 mg 08/21/24 21:00 08/21/24 20:59 Mirtazapine 15 Mg Tablet PO 09/20/24 20:59 15 mg HS DIRK Administration Ondansetron HCl 4 mg 08/21/24 09:32 08/21/24 19:19 Ondansetron Inj 2 Mg/Ml Inj 2 Ml IVP 4 mg Q1HR PRN Administration PERSISTENT NAUSEA OR VOMITING Protocol Pantoprazole Sodium 40 mg 08/22/24 09:00 08/22/24 08:46 Pantoprazole 40 Mg Tablet PO 09/21/24 08:59 40 mg QDAY DIRK Administration Prochlorperazine Maleate 5 mg 08/21/24 16:16 Prochlorperazine Maleate 5 Mg Tablet PO 09/20/24 16:11 Q6HR PRN NAUSEA OR VOMITING Protocol Sennosides 1 tab 08/21/24 12:15 Senna Tablet PO 09/20/24 12:14 QDAY PRN constipation Protocol Plan Mr. Guzman is a 63-year-old male with past medical history significant for recently diagnosed small cell carcinoma of the lung currently undergoing chemo therapy. Pt is admitted to for management of new onset a-fib with RVR. #New onset A-fib with RVR -Pt was found to be in a-fib with rate of 170's, which is new onset, denies any prior cardiac history. -Pt has worsening shortness of breath over the past year, denies orthpnea or PND -Patient complains of midsternal exertional and pleuritic chest pain which he noticed approximately 3 months ago. -EKG is evident of afib with RVR -BNP 753, Troponin < 0.036 [id number] score 0 HAS-BLED 0 Wells criteria for PE: 2.5, moderate risk with 16.2 % chance of PE -Echocardiogram: largely normal with EF of 50-55%, no evidence of right heart straining and no pericardial effusions. Plan: -Telemetry monitoring -Pt is given push of diltiazam 15mg x1 by the ED -Started on amiodarone drip, despite 3rd bag pt continues to have rapid HR in the 150's therefore Additional diltiazem 60mg is given x1 -Diltiazam 60mg QID PO is ordered -No anticoagulation needed at this time due to low [id number] score, and afib likely due to lung pathology. Pt is also at higher risk for hemoptysis with anticoagulation -Continue oral amiodarone and diltiazam and no anticoagulation #left pleural effusions #Reactive leukocytosis #Small cell carcinoma of the lung #Left lung atelectasis -Management as per primary team Assessment and plan discussed with my attending physician Dr. Chauncey Hoffman (PGY-2)- Internal medicine resident
--- NOTE | 2024-08-22 19:49 | ECHO_ITS ---
Transthoracic Echo Report Ht (in): 68 Wt (lb): 140 Exam Location: Echo Lab Status: Inpatient [facility] All Round: Eva Esquivel Indications: Procedure Performed: BP: 107 / 85 HR: 150 Technical Quality: Adequate MEASUREMENTS (Male / Female) Normal Values 2D ECHO LV Diastolic Diameter PLAX 5.1 cm 4.2 - 5.9 / 3.9 - 5.3 cm LV Systolic Diameter PLAX 4.3 cm IVS Diastolic Thickness 0.8 cm 0.6 - 1.0 / 0.6 - 0.9 cm LVPW Diastolic Thickness 0.8 cm 0.6 - 1.0 / 0.6 - 0.9 cm LV Relative Wall Thickness 0.3 LVOT Diameter 2.1 cm LA Volume Index 55.4 cm?/m? 16 - 28 cm?/m? M-MODE AV Cusp Separation MM 1.6 cm DOPPLER AV Peak Velocity 141.0 cm/s AV Peak Gradient 8.0 mmHg AI Peak Velocity 338.0 cm/s AI Peak Gradient 45.7 mmHg AI Pressure Half Time 670.0 ms LVOT Peak Velocity 109.0 cm/s LVOT Peak Gradient 4.8 mmHg AV Area Cont Eq pk 2.7 cm? MV Area PHT 3.2 cm? Mitral E Point Velocity 96.5 cm/s Mitral A Point Velocity 44.6 cm/s Mitral E to A Ratio 2.2 LV E' Lateral Velocity 5.9 cm/s Mitral E to LV E' Lateral Ratio 16.4 LV E' Septal Velocity 5.0 cm/s Mitral E to LV E' Septal Ratio 19.3 TR Peak Velocity 187.0 cm/s TR Peak Gradient 14.0 mmHg PV Peak Velocity 90.9 cm/s PV Peak Gradient 3.3 mmHg FINDINGS Left Ventricle The left ventricular cavity size is mildly increased. The left ventricular wall thicknesses are normal. Left ventricle ejection fraction 50 to 55% Right Ventricle The right ventricle is normal in size and systolic function. The estimated right ventricular systolic pressure, 14 mmHg. RAP 15mmHg. Left Atrium The left atrial cavity size is severely increased. Right Atrium The right atrial cavity size is mildly increased. Atrial Septum The interatrial septum appears normal with no evidence of a shunt. Aorta The aorta is normal by two-dimensional, color flow and Doppler interrogation. Mitral Valve The mitral valve annulus as well as leaflets are mildly calcified. There is mild mitral regurgitation. Aortic Valve The aortic valve is trileaflet and normal by two-dimensional, color flow and Doppler interrogation. There is mild aortic regurgitation. Tricuspid Valve The tricuspid valve is normal by two-dimensional, color flow and Doppler interrogation. There is mild tricuspid regurgitation. Pulmonic Valve The pulmonic valve is not well visualized. There is no significant pulmonic valve regurgitation. Vessels The pulmonary artery appears normal. The inferior vena cava is dilated with poor collapse. Pericardium The pericardium is normal by two-dimensional imaging. There is no significant pericardial effusion. CONCLUSIONS Indications: Afib Mildly dilated left atrium. Normal-sized left ventricle excellent LV systolic function EF 50 to 55% Aortic valve sclerosis mild aorta regurgitation. Mitral valve thickening with evidence of mild mitral regurgitation. Mild tricuspid regurgitation no evidence of pulmonary hypertension. There is no evidence of pericardial effusion. Savanna Valentino (Electronically Signed) Final Date: 22 August 2024 15:07
[2024-08-22] MEDS: AMIODARONE HCL 200 MG TABLET PO (20:41)
[2024-08-22] MEDS: MIRTAZAPINE 15 MG TABLET PO (20:42)
[2024-08-22] MEDS: HEPARIN SOD INJ 5000 UNIT/ML VIAL SC (21:32)
[2024-08-23] VITALS (11 sets, daily range): BP systolic 109–146; BP diastolic 57–86; PULSE 63–132; RESP 17–22; TEMP 36.3–36.9; O2SAT 96–98; BMI 22.5
[2024-08-23] MEDS: DILTIAZEM 30 MG TABLET 60 MG PO ×3 (05:16→17:15)
[2024-08-23] MEDS: HEPARIN SOD INJ 5000 UNIT/ML VIAL SC ×2 (05:16→13:01)
[2024-08-23 06:05] LABS: Basophils # (Auto) 0.0 Thou/mm3 (0.0-0.2); Basophils % (Auto) 0 % (0-2.5); Eosinophils # (Auto) 0.1 Thou/mm3 (0.0-0.5); Eosinophils % (Auto) 1 % (0-10); Hematocrit 35.2 % (41.0-53.0); Hemoglobin 11.5 g/dL (13.5-16.0); Immature Granulocytes Auto 0.02 Thou/mm3 (0.00-0.00); Lymphocytes # (Auto) 1.0 Thou/mm3 (1.0-4.8); Lymphocytes % (Auto) 14 % (10-50); Mean Corpuscular HGB Conc 32.7 g/dl (31.0-37.0); Mean Corpuscular Hemoglobin 26.7 pg (25.0-35.0); Mean Corpuscular Volume 82 fL (80-100); Monocytes # (Auto) 0.1 Thou/mm3 (0.0-0.8); Monocytes % (Auto) 1 % (0-12); Neutrophils # (Auto) 5.7 Thou/mm3 (1.8-7.7); Neutrophils % (Auto) 83 % (37-80); Nucleated Red Blood Cell # 0.00 Thou/mm3 (0.00-0.00); Nucleated Red Blood Cell % 0 /100 WBC (0); Platelet Count 335 Thou/mm3 (140-440); RDW Standard Deviation 45.5 fL (35.1-43.9); Red Blood Count 4.31 Miln/mm3 (4.50-5.90); White Blood Count 6.8 Thou/mm3 (3.8-10.6)
[2024-08-23 06:47] LABS: Alanine Aminotransferase 26 U/L (10-49); Albumin, Serum 3.6 gm/dL (3.4-4.8); Albumin/Globulin Ratio 1.5 (1.2-2.2); Alkaline Phosphatase 72 U/L (46-116); Anion Gap 13 (7-16); Aspartate Amino Transferase 37 U/L (0-34); BUN/Creatinine Ratio 15 Ratio (12-20); Bilirubin,Total 0.7 mg/dL (0.3-1.2); Blood Urea Nitrogen 9 mg/dL (9-23); Calcium 8.6 mg/dL (8.3-10.6); Calcium (Corrected) 8.9 mg/dL (8.5-10.1); Carbon Dioxide 25.0 mMol/L (20.0-31.0); Chloride 103 mMol/L (98-107); Creatinine (Component) 0.6 mg/dL (0.6-1.3); Estimated Creatinine Clearance 121.2 mL/min (>60); Globulin 2.4 gm/dL (2.3-3.5); Glucose 99 mg/dL (74-106); Magnesium 2.1 mg/dL (1.6-2.6); Osmolality,Calculated 279 (275-295); Phosphorous 3.0 mg/dL (2.4-5.1); Potassium 3.5 mMol/L (3.4-5.1); Sodium 141 mMol/L (136-145); Total Protein 6.0 gm/dL (5.7-8.2); eGFR > 60 See Note
[2024-08-23] MEDS: PIPER/TAZO 3.375 GM PREMIX 3.375 GM/50 ML BAG IV (10:24)
[2024-08-23] MEDS: MEGESTROL ACET 20 MG TABLET PO (10:25)
[2024-08-23] MEDS: PANTOPRAZOLE 40 MG TABLET PO (10:26)
[2024-08-23] MEDS: AMIODARONE HCL 200 MG TABLET PO (10:26)
--- NOTE | 2024-08-23 15:35 | ESDS_ITS ---
<Statement entered by Velvet Khan DO - 08/24/24 15:57> I, Velvet Khan DO, attest that I was physically present for the siddiqui portions of the service and evaluated the patient with the resident and I reviewed and discussed the case with the resident and agree with the resident's findings and plans of care as documented above Planned Discharge Date 08/23/24 DS: Providers Provider Date of admission: 08/21/24 12:16 Primary care physician: CARLYLE Stark Admitting Provider: Hector Liriano MD Attending Provider on Admission: Hector Liriano MD Consults: 08/21/24 13:45 Consult to Cardiology Urgent Comment: new onset afib w/ RVR Consulting Provider: Ashlie Grossman Attending Provider on DC: Velvet khan DO Discharging Provider: Velvet khan DO DS: Diagnosis Problem List Completed Was Problem List Reviewed/Reconciled?: Yes Hospital Course Hospital Course Hospital course: DC summary: This patient is a 63-year-old male with past medical history of recently diagnosed lung cancer [small cell lung cancer on chemotherapy] following oncologist, Dr. Fisher, COPD presented from cancer treatment center due to chest pain and shortness of breath. Patient has finished his second session of chemotherapy. Patient was found to have rapid heart rate and EKG showed A-fib with RVR with low blood pressure. Initially he was given diltiazem in the ED which dropped his blood pressure therefore amiodarone was started and cardiology was consulted. Creative Writing English Professor recommended to add Cardizem 60 mg 4 times daily and continue with amiodarone since his heart rate was persistently elevated. Patient's home medications for insomnia, depression and x-ray were resumed. [id number] was 0 therefore Eliquis was not started. Due to moderate risk of PE CTA was performed which showed large left pleural effusion with atelectasis left lung. Masslike area. At least 8 centimeter partially cystic. Pneumonia was also seen therefore was covered with Zosyn and discharged on Augmentin. Echocardiogram showed EF 50 to 55%. Aortic valve sclerosis with mild aortic regurgitation. BNP was elevated. Troponin I downtrended. Building Certifier recom mended to curbside with oncologist regarding prognosis of patient in terms of benefit of transbronchial valves after following interventional cook fruit. Therefore patient was advised to follow-up with the oncologist for further recommendations and evaluation. Patient's heart rate was well-managed after adding Cardizem changed to Cardizem CD 120 and amiodarone 200 mg twice daily. He was stable at the time of discharge. #Problem list #New Onset A-fib w/ RVR currently rate controlled #Small cell lung cancer on chemotherapy #Left-sided pleural effusion with atelectasis left lung with masslike area per CT finding #HFpEF, EF 50 to 55% with mild aortic regurg #Port a catheter #COPD #Insomnia #Depression #Anorexia likely related to malignancy #Leukocytosis likely reactive #Normocytic anemia DC instructions: Take amiodarone 200 mg twice daily and diltiazem CD 120 mg once a day due to new Atrial fib.No anticoagulation indicated Take augmentin 875 twice a day twice a day for 5 more days to complete antibiotic course for Community accq pneumonia Take home meds as prescribed F/U with PCP as outpatient within a week F/U with physician office nurse as outpatient within a week F/U with cancer specialist Dr Fisher ,as outpatient within a week In case of emergency call 911 or come back to ED Patient was seen and discussed with attending physician, Dr. Nataly Arana MD, PGY 3 Time Spent with Patient Time attestation: Total time spent providing and/or coordinating discharge services: Time spent: Greater than 30 minutes Exam Vital Signs Temp Pulse Resp BP Pulse Ox O2 Del Method O2 Flow Rate 97.6 F 71 18 130/69 96 Room Air 1 08/23/24 12:00 08/23/24 12:58 08/23/24 12:00 08/23/24 12:58 08/23/24 12:00 08/23/24 12:00 08/23/24 04:00 Narrative Exam GENERAL APPEARANCE: AxOx4, generally well-appearing male in no acute distress. Saturating well on room air. HEENT: NC, AT. MMM. EOMI, clear conjunctiva, oropharynx clear. NECK: Supple without lymphadenopathy. No stiffness or restricted ROM. port A cath seen HEART: Irregular rate and irregular rhythm, normal S1/S2, no m/r/g LUNGS: CTAB, moving air well. No crackles or wheezes are heard. ABDOMEN: Soft, nontender, nondistended with good bowel sounds heard. BACK: No CVAT, no obvious deformity. EXTREMITIES: Without cyanosis, clubbing or edema. NEUROLOGICAL: Grossly nonfocal. Alert and oriented, moving all 4 extremities. CN not formally tested but appear grossly intact. Observed to ambulate with normal gait. Skin: Warm and dry without any rash. Psych: Mildly anxious however cooperative with appropriate mood and affect Discharge Plan Plan Patient Disposition: HOME (Self Care) Patient condition on transfer: Stable Care Plan Goals: Take amiodarone 200 mg twice daily and diltiazem CD 120 mg once a day due to new Atrial fib.No anticoagulation indicated Take augmentin 875 twice a day twice a day for 5 more days to complete antibiotic course for Community accq pneumonia Take home meds as prescribed F/U with PCP as outpatient within a week F/U with physician office nurse as outpatient within a week F/U with cancer specialist Dr Fisher ,as outpatient within a week In case of emergency call 911 or come back to ED Prescriptions/Referrals Prescriptions/Med Rec: New amiodarone 200 mg Tablet 200 mg PO BID Qty: 90 0RF amoxicillin-pot clavulanate 875-125 mg tablet 1 tab PO BID 5 Days Qty: 10 0RF diltiazem HCl [Cardizem CD] 120 mg capsule,extended release 24hr 120 mg PO QDAY Qty: 90 0RF Continued Trelegy Ellipta 100-62.5-25 mcg blister with device 1 inh inhalation QDAY omeprazole 40 mg capsule,delayed release(DR/EC) 40 mg PO QDAY hydrocodone-acetaminophen 7.5-325 mg tablet 1 tab PO Q6H PRN (Reason: pain) Patient Comments: TAKE ONE TABLET BY MOUTH EVERY 6 HOURS NEEDED FOR PAIN mirtazapine 15 mg tablet 15 mg PO HS Patient Comments: TAKE ONE TABLET BY MOUTH AT BEDTIME megestrol 20 mg tablet 20 mg PO BID Patient Comments: TAKE ONE TABLET BY MOUTH TWICE DAILY prochlorperazine maleate 10 mg tablet 5 mg PO Q6H PRN (Reason: nausea and vomiting) Patient Comments: TAKE ONE TABLET BY MOUTH THREE TIMES DAILY NEEDED FOR NAUSEA AND VOMITING Discontinued acetaminophen 500 mg tablet 500 mg PO BID PRN (Reason: pain) Referrals: Adriel Appiah FNP [Primary Care Provider] - Ashlie Grossman MD [Physician] - Ilya Fisher MD [Physician] - Patient/Caregiver Discharge Instructions Education Materials: ED Atrial Fibrillation, ED Atelectasis Print Language: Bahraini Stand Alone Forms: [facility] Award Info., Patient Portal Info Letter Discharge Order Discharge Orders: Discharge (Routine); Ordered 08/23/24 Ordered By: Soren Arana Quality Discharge Quality Measures VTE prophylaxis (Heparin SC)
--- NOTE | 2024-08-23 17:00 | ESPR_ITS ---
<Statement entered by Ashlie Grossman MD - 08/23/24 18:59> I personally examined evaluated the patient A-fib rate controlled well now patient history of malignancy left lung collapse and pleural effusion A-fib rate controlled doing much better no shortness of breath chest pain amiodarone is continued IV followed by oral which should be my recommendation upon discharge. Evaluate the patient with the PGY 2 Dr. Dash Ta agree with the treatment plan recommendation as documented Documentation for date of: 08/23/24 Subjective Subjective Interval history: Patient is seen and examined at bedside No acute overnight events. Patient is going in and out of the A-fib when examined. Denies any other new complaints. Vitals are stable and heart rate is around 70 bpm Recommended to continue amiodarone 200 Mg twice daily and start diltiazem ER 120 mg daily on discharge Can follow-up with the primary care provider for A-fib No need of any anticoagulation as patient's [id number] or is 0 Exam Vital Signs Temp Pulse Resp BP Pulse Ox O2 Del Method O2 Flow Rate 98.4 F 68 18 119/69 96 Room Air 1 08/23/24 16:00 08/23/24 16:00 08/23/24 16:00 08/23/24 16:00 08/23/24 16:00 08/23/24 16:08/23/24 16:00 Narrative Exam General: Awake. HEENT: Normocephalic, atraumatic, mucous membranes moist. Heart: IRRegular rate and rhythm, no murmurs. Lungs: Clear to auscultation with no wheezing or crackles. Noted decreased breath sounds on left side Abdomen: Soft, nondistended, nontender, positive bowel sounds. ?No guarding or rebound tenderness. Neurologic: Alert and oriented x3, no gross neurological deficit, and patient able to move all 4 extremities. Extremities: No edema. Skin: No rash or ecchymoses. Objective Labs 08/23/24 04:50 08/23/24 04:50 Labs: Laboratory Results - last 24 hr 08/23/24 04:50 WBC 6.8 D RBC 4.31 L Hgb 11.5 L Hct 35.2 L MCV 82 MCH 26.7 MCHC 32.7 RDW Std Deviation 45.5 H Plt Count 335 D Neut % (Auto) 83 H Lymph % (Auto) 14 [place] % (Auto) 1 Eos % (Auto) 1 Baso % (Auto) 0 Neut # (Auto) 5.7 Lymph # (Auto) 1.0 [place] # (Auto) 0.1 Eos # (Auto) 0.1 Baso # (Auto) 0.0 Immature Gran # (Auto) 0.02 H Absolute Nucleated RBC 0.00 Immature Gran % 0 Nucleated RBC % 0 Sodium 141 Potassium 3.5 D Chloride 103 Carbon Dioxide 25.0 Anion Gap 13 BUN 9 Creatinine 0.6 Estim Creat Clear Calc 121.2 eGFR > 60 BUN/Creatinine Ratio 15 Glucose 99 Calculated Osmolality 279 Calcium 8.6 Corrected Calcium 8.9 Phosphorus 3.0 Magnesium 2.1 Total Bilirubin 0.7 AST 37 H ALT 26 Alkaline Phosphatase 72 Total Protein 6.0 Albumin 3.6 Globulin 2.4 Albumin/Globulin Ratio 1.5 Quality Measures Quality Measures VTE prophylaxis (Heparin subcut) Assessment & Plan Assessment Current Active Medications: Generic Name Dose Route Start Last Admin Trade Name Freq PRN Reason Stop Dose Admin Acetaminophen 650 mg 08/21/24 12:15 Acetaminophen 325 Mg Tablet PO 09/20/24 12:14 Q6H PRN Fever >100.4 or pain(1-3) Hydrocodone Bitart/Acetaminophen 1 tab 08/21/24 12:15 08/21/24 15:26 Hydrocodone/Apap 5/325 Tablet PO 08/26/24 12:14 1 tab Q4HR PRN Administration PAIN SCALE 4-10(Mod-Sev Amiodarone HCl 200 mg 08/22/24 21:00 08/23/24 10:26 Amiodarone Hcl 200 Mg Tablet PO 09/21/24 20:59 200 mg BID DIRK Administration Clonazepam 1 mg 08/21/24 16:20 Clonazepam 0.5 Mg Tablet PO 08/26/24 20:59 BID PRN anxiety Diltiazem HCl 60 mg 08/22/24 06:00 08/23/24 12:58 Diltiazem 30 Mg Tablet PO 09/21/24 05:59 60 mg QID DIRK Administration Docusate Sodium 100 mg 08/21/24 12:15 Docusate Sod 100 Mg Capsule PO 09/20/24 12:14 QDAY PRN CONSTIPATION Protocol Heparin Sodium (Porcine) 5,000 unit 08/22/24 22:00 08/23/24 13:01 Heparin Sod Inj 5000 Unit/Ml Vial SC 09/05/24 21:59 5,000 unit Q8HR DIRK Administration Piperacillin/Tazobactam/Dextrose 3.375 gm in 50 mls @ 12.5 mls/hr 08/23/24 08:15 08/23/24 14:54 Zosyn IV 08/30/24 08:14 Not Given Q8HR DIRK Megestrol Acetate 20 mg 08/21/24 21:00 08/23/24 10:25 Megestrol Acet 20 Mg Tablet PO 09/20/24 20:59 20 mg BID DIRK Administration Mirtazapine 15 mg 08/21/24 21:00 08/22/24 20:42 Mirtazapine 15 Mg Tablet PO 09/20/24 20:59 15 mg HS DIRK Administration Ondansetron HCl 4 mg 08/21/24 09:32 08/21/24 19:19 Ondansetron Inj 2 Mg/Ml Inj 2 Ml IVP 4 mg Q1HR PRN Administration PERSISTENT NAUSEA OR VOMITING Protocol Pantoprazole Sodium 40 mg 08/22/24 09:00 08/23/24 10:26 Pantoprazole 40 Mg Tablet PO 09/21/24 08:59 40 mg QDAY DIRK Administration Prochlorperazine Maleate 5 mg 08/21/24 16:16 Prochlorperazine Maleate 5 Mg Tablet PO 09/20/24 16:11 Q6HR PRN NAUSEA OR VOMITING Protocol Sennosides 1 tab 08/21/24 12:15 Senna Tablet PO 09/20/24 12:14 QDAY PRN constipation Protocol Plan Mr. Guzman is a 63-year-old male with past medical history significant for recently diagnosed small cell carcinoma of the lung currently undergoing chemo therapy. Pt is admitted to for management of new onset a-fib with RVR. #New onset A-fib with RVR -Pt was found to be in a-fib with rate of 170's, which is new onset, denies any prior cardiac history. -Pt has worsening shortness of breath over the past year, denies orthpnea or PND -Patient complains of midsternal exertional and pleuritic chest pain which he noticed approximately 3 months ago. -EKG is evident of afib with RVR -BNP 753, Troponin < 0.036 [id number] score 0 HAS-BLED 0 Wells criteria for PE: 2.5, moderate risk with 16.2 % chance of PE -Echocardiogram: largely normal with EF of 50-55%, no evidence of right heart straining and no pericardial effusions. Plan: -Telemetry monitoring -Continue oral amiodarone and diltiazem -No anticoagulation needed at this time due to low [id number] score, and afib likely due to lung pathology. Pt is also at higher risk for hemoptysis with anticoagulation #left pleural effusions #Reactive leukocytosis #Small cell carcinoma of the lung #Left lung atelectasis -Management as per primary team Assessment and plan discussed with my attending physician Dr. Chauncey Ta, PGY2
[2024-08-23] MEDS: HEPARIN SOD LOCK SYR 100 UNIT/ML 500 UNIT INTRACATH (18:10)
== END 2024-08-23 18:36 | disposition home or self-care (01) | DRG 201 ==
LOC: SERX 11:18 → SERHOLD 12:28 → S2NX 22:45
PROVIDERS: Admitting Provider Internal Medicine; Emergency Provider Family Medicine; PCP Nurse Practitioner Family; Visit Provider Internal Medicine
DX: I48.91 Unspecified atrial fibrillation (principal); J18.9 Pneumonia, unspecified organism; J44.0 Chronic obstructive pulmonary disease with (acute) lower respiratory infection; G47.00 Insomnia, unspecified; F32.A Depression, unspecified; R63.0 Anorexia; I50.30 Unspecified diastolic (congestive) heart failure; D64.9 Anemia, unspecified; I35.8 Other nonrheumatic aortic valve disorders; C34.32 Malignant neoplasm of lower lobe, left bronchus or lung; J98.11 Atelectasis; Z79.899 Other long term (current) drug therapy; Z87.891 Personal history of nicotine dependence
CPT/HCPCS: 36415; 71045; 71275; 80053; 80061; 83735; 83880; 84100; 84443; 84484; 85025; 85610; 85730; 93005; 93306; 96365; 96366; 96375; 99285; A4649; J0283; J1642; J1644; J2270; J2405; J2543; J3475; J3490; Q9967; A9270

== ENCOUNTER 2024-09-11 08:04 | Outpatient (RCR) | payer MEDICAID, SELFPAY ==
[2024-08-25 14:02] LABS: Basophils # (Auto) 0.1 Thou/mm3 (0.0-0.2); Basophils % (Auto) 1 % (0-2.5); Eosinophils # (Auto) 0.1 Thou/mm3 (0.0-0.5); Eosinophils % (Auto) 1 % (0-10); Hematocrit 39.0 % (41.0-53.0); Hemoglobin 12.7 g/dL (13.5-16.0); Immature Granulocytes Auto 0.11 Thou/mm3 (0.00-0.00); Lymphocytes # (Auto) 1.4 Thou/mm3 (1.0-4.8); Lymphocytes % (Auto) 20 % (10-50); Mean Corpuscular HGB Conc 32.6 g/dl (31.0-37.0); Mean Corpuscular Hemoglobin 26.5 pg (25.0-35.0); Mean Corpuscular Volume 81 fL (80-100); Monocytes # (Auto) 0.1 Thou/mm3 (0.0-0.8); Monocytes % (Auto) 1 % (0-12); Neutrophils # (Auto) 5.1 Thou/mm3 (1.8-7.7); Neutrophils % (Auto) 75 % (37-80); Nucleated Red Blood Cell # 0.00 Thou/mm3 (0.00-0.00); Nucleated Red Blood Cell % 0 /100 WBC (0); Platelet Count 396 Thou/mm3 (140-440); RDW Standard Deviation 43.9 fL (35.1-43.9); Red Blood Count 4.79 Miln/mm3 (4.50-5.90); White Blood Count 6.8 Thou/mm3 (3.8-10.6)
[2024-08-25 14:16] LABS: Alanine Aminotransferase 74 U/L (10-49); Albumin, Serum 4.1 gm/dL (3.4-4.8); Albumin/Globulin Ratio 1.5 (1.2-2.2); Alkaline Phosphatase 93 U/L (46-116); Anion Gap 13 (7-16); Aspartate Amino Transferase 47 U/L (0-34); BUN/Creatinine Ratio 22 Ratio (12-20); Bilirubin,Total 0.6 mg/dL (0.3-1.2); Blood Urea Nitrogen 13 mg/dL (9-23); Calcium 8.8 mg/dL (8.3-10.6); Calcium (Corrected) 8.8 mg/dL (8.5-10.1); Carbon Dioxide 23.1 mMol/L (20.0-31.0); Chloride 103 mMol/L (98-107); Creatinine (Component) 0.6 mg/dL (0.6-1.3); Globulin 2.7 gm/dL (2.3-3.5); Glucose 154 mg/dL (74-106); Osmolality,Calculated 280 (275-295); Potassium 3.3 mMol/L (3.4-5.1); Sodium 139 mMol/L (136-145); Total Protein 6.8 gm/dL (5.7-8.2); eGFR > 60 See Note
--- NOTE | 2024-09-08 01:21 | CTCFLWUP_ITS ---
Patient: ENRIQUE HILLS : 1960 Page 5 of 10 FOLLOW UP NOTE DATE OF SERVICE: 08/28/2024 NAME: ENRIQUE HILLS ACCOUNT: [id number] : 1960 AGE: 63 INTERVAL HISTORY: Enrique Hills, a male with advanced small cell lung cancer, presented with chest pain, shortness of breath, and coughing after completing 3 chemotherapy cycles. His history included recent hospitalization for cardiac arrhythmia and infection. Labs showed low potassium and high sodium. Despite feeling a lot better since starting chemotherapy, he experienced complications and weight loss (133 to 128-129 lbs). Treatment included continuing chemotherapy, urgent cardiology referral, potassium supplementation (2 tablets today, then 1 daily), and monitoring Megestrol use for appetite stimulation. ONCOLOGY HISTORY: DIAGNOSIS: Malignant neoplasm of lower lobe, left bronchus or lung [ICD10] C34.32 DATE OF DIAGNOSIS: 05/29/2024 STAGE/TNM: ADRIANA T4 NX M1 TREATMENT HISTORY: Care?Plan Start?Date Cycle Day Intent 2?Small?cell,?Atezo?maintenanc?[id number]?study 08/19/2024 1 21 Palliative Carbo,?Etoposide?NSCLC 07/07/2024 1 21 Palliative HISTORY OF PRESENT ILLNESS: Chief Complaint Recently diagnosed with small cell lung cancer, shortness of breath History of Present Illness Enrique Hills is a male patient with a history of smoking and asbestos exposure who was recently diagnosed with advanced small cell lung cancer. He presents for oncology evaluation and treatment initiation. Mr. Hills reports that he was diagnosed with small cell lung cancer on May 15, 2024, while he was in the hospital with his , who was dying from the same condition. He experienced significant shortness of breath at that time, which led to his hospitalization and subsequent diagnosis. Mr. Hills has a history of smoking 2-3 packs of cigarettes per day but quit approximately 17-18 years ago. 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 The patient recently moved from [place] to [place], partly due to health reasons and insurance coverage. He now has Medicaid, which allows him to access care in [place]. Mr. Hills is experiencing significant life stressors, including the recent loss of his on May 15, 2024, and challenges with managing paperwork and daily tasks without her support. He reports difficulty with reading, writing, and math skills, which is impacting his ability to manage his affairs independently. 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 Mr. Hills mentions having a hearing loss at baseline, which affects his ability to communicate effectively. He has limited social support, with a sister living in [place], [place], being his primary local contact. The patient reports challenges with nutrition and meal preparation since his 's passing. Review of Systems HEENT: Positive for hearing loss. Respiratory: Positive for shortness of breath. OTHER MEDICAL HISTORY/CONDITIONS: Small cell lung cancer - dx 06/08/24 COPD Depression Surgical repair left wrist fracture -t 2020 Laser surgery both eye - 8 yrs ago FAMILY HISTORY: Cancer History:?denies imediate family hx Patient?denies?family?cancer?history. 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 Tobacco Use:?Quit 18yrs ago - Smoked 203 PPD x 25yrs ETOH Use:?Quit 7 yrs ago- Drank beer every weekend x 25yrs Drug?Note:?Uses?gummies?to?sleep Social History Note:?Lives alone - sister lives nearby MEDICATIONS: 1. Cardizem - 120 mg 1 tab Each Day 2. Compazine - 10 mg 10 mg three times a day prn nausea 3. Compazine - 5 mg 1 tab as needed 4. Cordarone - 200 mg tab Twice a Day 5. mirtazapine - 15 mg 1 tab In the evening 6. NexIUM Packet - 40 mg Daily 7. omeprazole - 40 mg 1 Capsule In the morning 8. ondansetron - 8 mg 1 tab as needed 9. potassium chloride - 8 mEq 1 Capsule Daily 10. Zofran - 8 mg 8 mg three times a day prn nausea 11. Zofran - 8 mg 1 tab Three times a day Medications Last Reconciled by Sonya Vargas MD on 08/28/2024 ALLERGIES: No Known Drug Allergies REVIEW OF SYSTEMS: A complete 14-point review of systems was performed and is negative except as noted in interval history. PHYSICAL EXAMINATION: VITAL SIGNS: Temperature?97.9, B/P?136/82, Oxygen?Saturation?98% Weight?129?lbs (Change?since?08/25/24:?0.4?lbs) PAIN: 0 - No pain ECOG Performance Status: 1 - Symptomatic; ambulatory; restricted in strenuous activity GENERAL APPEARANCE: Appears well, in no apparent distress, appropriately interactive. HEENT: Normocephalic, no temporal wasting, normal conjunctiva, no scleral icterus, normal hearing, lips without lesions, neck normal range of motion. CARDIOVASCULAR: Not assessed. PULMONARY: Normal respiratory effort, no respiratory distress or use of accessory muscles, speaking in full sentences, no tachypnea. EXTREMITIES: No pedal edema or cyanosis. SKIN: Normal skin appearance. NEUROLOGIC: Alert and oriented x4. PSHYCHIATRIC: Appropriate affect, mood normal, behavior normal, intact thought and speech. LABORATORY DATA: I have personally reviewed and interpreted each of the patient?s relevant lab tests, abnormal findings are below: Date 08/23/24 08/25/24 ??WHITE?BLOOD?COUNT?(Thou/mm3) 6.8 6.8 ??RED?BLOOD?COUNT?(Miln/mm3) 4.31?L 4.79 ??HEMOGLOBIN?(gm/dl) 11.5?L 12.7?L ??HEMATOCRIT?(%) 35.2?L 39.0?L ??PLATELET?COUNT?(Thou/mm3) 335 396 ??NEUTROPHILS?%,?AUTO?(%) 83?H 75 ??LYMPH?%,?AUTO?(%) 14 20 ??NEUTROPHILS,?AUTO?(Thou/mm3) 5.7 5.1 ??GLUCOSE,RANDOM?(mg/dL) 99 154?H ??BLOOD?UREA?NITROGEN?(mg/dL) 9 13 ??CREATININE?(mg/dL) 0.60 0.60 ??SODIUM?(mmol/L) 141 139 ??POTASSIUM?(mmol/L) 3.5 3.3?L ??CHLORIDE?(mmol/L) 103 103 ??CrCl?(CandG)?(ml/min) 109.91 105.32 ??AST/SGOT?(Unit/L) 37?H 47?H ??ALT/SGPT?(Unit/L) 26 74?H ??ALKALINE?PHOSPHATASE?(Unit/L) 72 93 ??BILIRUBIN,?TOTAL?(mg/dL) 0.7 0.6 ??PROTEIN?TOTAL?(gm/dl) 6.0 6.8 ??ALBUMIN,?SERUM?(gm/dl) 3.6 4.1 ??GLOBULIN?(gm/dl) 2.4 2.7 ??ALBUMIN/GLOBULIN?RATIO 1.5 1.5 ??CALCIUM,?SERUM?(mg/dL) 8.6 8.8 ??CALCIUM?SERUM?(CORRECTED)?(mg/dL) 8.9 8.8 ASSESSMENT/PLAN: 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 Small Cell Lung Cancer Assessment: Mr. Hills has been diagnosed with advanced stage small cell lung cancer. CT scan on 04-30-2024 revealed a large subcarinal tumor mass (10 x 4.6 x 8.6 cm) surrounding the left main bronchus, a pulmonary mass in the left lower lobe (4.6 cm), and a left adrenal nodule (23 mm). Biopsy of the left lung mass on 05-29-2024 confirmed small cell lung cancer. The patient has a history of smoking 2-3 packs per day but quit 17-18 years ago. 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 The cancer is considered aggressive and advanced, requiring immediate treatment initiation. 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 Hills has a baseline hearing loss, which may impact his ability to understand and follow medical instructions. Plan: - Ensure all instructions are provided in writing for the patient and his sister - Speak clearly and confirm patient understanding during consultations Psychosocial Concerns Assessment: Mr. Hills is recently , having lost his to small cell lung cancer on May 15. He expresses difficulty in managing paperwork and daily tasks without his 's assistance. The patient has limited education (6th grade) and reports challenges with reading, writing, and math. He has recently relocated from [place] to [place], purchasing a house near his sister in [place] for support and access to healthcare. Plan: - Refer to social media marketer for assistance with: - Paperwork completion, including snf benefit applications - Identifying and accessing available support services - Encourage family involvement, particularly his sister and son, in care management - Provide written information on diagnosis, treatment plan, and support services Enrique Hills, male patient with advanced small cell lung cancer, presenting for follow-up after 3 cycles of chemotherapy with recent hospitalization due to cardiac arrhythmia and infection. Advanced Small Cell Lung Cancer Assessment: Patient started chemotherapy in June for advanced small cell lung cancer. He has completed 3 cycles of treatment. The patient reports feeling a lot better since starting chemotherapy, suggesting a positive response to treatment. However, after the third cycle, he experienced complications requiring hospitalization. Despite this setback, we assess that the chemotherapy is working well for the patient based on his reported improvement in symptoms. Plan: - Continue current chemotherapy regimen - Schedule next chemotherapy treatment with nursing staff - Monitor for treatment response and side effects Cardiac Arrhythmia Assessment: Patient experienced cardiac arrhythmia after the third cycle of chemotherapy, requiring emergency room visit. This suggests a potential cardiac complication related to cancer treatment or disease progression. The patient currently does not have a bisque grader due to insurance limitations ([employer] coverage). Plan: - Urgent cardiology referral - Request earlier appointment than October 22 due to recent arrhythmia - Monitor cardiac symptoms closely during chemotherapy - Educate patient on importance of follow-up with bisque grader Infection Assessment: Patient developed an infection concurrent with the cardiac arrhythmia, presenting with cough. He was treated with antibiotics during hospitalization. The infection may have contributed to the overall clinical picture requiring emergency care. Plan: - Monitor for recurrence of infection symptoms - Ensure completion of prescribed antibiotic course Electrolyte Imbalance Assessment: Recent labs show low potassium and high sodium levels. This electrolyte imbalance could potentially contribute to cardiac arrhythmias and other complications. Plan: - Initiate potassium supplementation: - 2 tablets today, then 1 capsule daily - Encourage increased water intake - Monitor electrolyte levels with follow-up labs - Nursing staff to check potassium levels and adjust supplementation as needed Weight Loss / Decreased Appetite Assessment: Patient's weight has decreased from 133 lbs at treatment initiation to 128-129 lbs currently. This weight loss is concerning in the context of cancer treatment. The primary care physician has prescribed medication to stimulate appetite, likely Megestrol (patient referred to it as Magus ). Plan: - Monitor weight at each visit - Encourage increased caloric intake - Follow up on Megestrol prescription from primary care physician - Discuss potential use of cannabis/edibles for appetite stimulation if other interventions are ineffective Dyspnea on Exertion Assessment: Patient reports improved breathing at rest but continues to experience shortness of breath with exertion. This symptom could be related to the underlying lung cancer, treatment effects, or deconditioning. Plan: - Monitor dyspnea symptoms - Encourage gradual increase in activity as tolerated ORDERS: Order # Description [id number] Follow Up Appointment [id number] Lab Appointment [id number] Lab Appointment [id number] CBC + Comprehensive Metabolic Panel [id number] Lab Appointment [id number] Follow Up Appointment [id number] Lab Appointment [id number] Lab Appointment [id number] CBC + Comprehensive Metabolic Panel [id number] Lab Appointment [id number] Follow Up Appointment [id number] Lab Appointment [id number] Lab Appointment [id number] CBC + Comprehensive Metabolic Panel [id number] Lab Appointment [id number] Lab Appointment [id number] CBC + Comprehensive Metabolic Panel [id number] Lab Appointment [id number] Lab Appointment [id number] CBC + Comprehensive Metabolic Panel [id number] Lab Appointment [id number] Lab Appointment [id number] CBC + Comprehensive Metabolic Panel [id number] Lab Appointment [id number] Lab Appointment [id number] CBC + Comprehensive Metabolic Panel [id number] Lab Appointment [id number] Lab Appointment [id number] CBC + Comprehensive Metabolic Panel [id number] Lab Appointment [id number] Lab Appointment [id number] CBC + Comprehensive Metabolic Panel [id number] Lab Appointment [id number] Lab Appointment [id number] CBC + Comprehensive Metabolic Panel [id number] Lab Appointment [id number] Lab Appointment [id number] CBC + Comprehensive Metabolic Panel [id number] Lab Appointment [id number] Lab Appointment [id number] CBC + Comprehensive Metabolic Panel [id number] Lab Appointment [id number] Lab Appointment [id number] CBC + Comprehensive Metabolic Panel [id number] Lab Appointment [id number] Lab Appointment [id number] CBC + Comprehensive Metabolic Panel [id number] Lab Appointment [id number] Lab Appointment [id number] CBC + Comprehensive Metabolic Panel [id number] Lab Appointment RETURN TO CLINIC: I reviewed the diagnosis, prognosis, and recommended treatment/procedure options with the patient (and/or their legal customer relations representative), including the potential benefits, risks, side effects and alternative therapies. We also discussed the option of no treatment and the possibility of clinical trial participation, if applicable. All questions were addressed, and they demonstrated understanding. They provided informed consent to proceed with the proposed plan of care. BILLING AND COMPLIANCE: I reviewed external records from providers outside my specialty as summarized above. I spent a total of 50 minutes on this patient?s care on the day of their visit excluding time spent related to any billed procedures. This time includes time spent with the patient as well as time spent documenting in the medical record, reviewing patients records and tests, obtaining history, placing orders, communicating with other healthcare professionals, counseling the patient, family or caregiver, and/or care coordination for the diagnoses above. Electronically Signed by: {Object.Sanct_ID*PnP.NameFL@M}, {Object.Sanct_ID*PnP.Suffix@U} D: {Object.Sanct_Date} T: {Object.Sanct_Time} CC: PCP: Referring: Adriel Appiah This document was completed utilizing speech recognition software. Grammatical errors, random word insertions, pronoun errors, and incomplete sentences are an occasional consequence of this system due to software limitations, ambient noise, and hardware issues. Any formal questions or concerns about the content, text or information contained within the body of this dictation should be directly addressed to the provider for clarification.
[2024-09-08 12:31] LABS: Basophils # (Auto) 0.1 Thou/mm3 (0.0-0.2); Basophils % (Auto) 2 % (0-2.5); Eosinophils # (Auto) 0.2 Thou/mm3 (0.0-0.5); Eosinophils % (Auto) 5 % (0-10); Hematocrit 34.9 % (41.0-53.0); Hemoglobin 11.5 g/dL (13.5-16.0); Immature Granulocytes Auto 0.04 Thou/mm3 (0.00-0.00); Lymphocytes # (Auto) 1.5 Thou/mm3 (1.0-4.8); Lymphocytes % (Auto) 28 % (10-50); Mean Corpuscular HGB Conc 33.0 g/dl (31.0-37.0); Mean Corpuscular Hemoglobin 27.6 pg (25.0-35.0); Mean Corpuscular Volume 84 fL (80-100); Monocytes # (Auto) 0.7 Thou/mm3 (0.0-0.8); Monocytes % (Auto) 12 % (0-12); Neutrophils # (Auto) 2.8 Thou/mm3 (1.8-7.7); Neutrophils % (Auto) 53 % (37-80); Nucleated Red Blood Cell # 0.00 Thou/mm3 (0.00-0.00); Nucleated Red Blood Cell % 0 /100 WBC (0); Platelet Count 445 Thou/mm3 (140-440); RDW Standard Deviation 49.7 fL (35.1-43.9); Red Blood Count 4.16 Miln/mm3 (4.50-5.90); White Blood Count 5.4 Thou/mm3 (3.8-10.6)
[2024-09-08 12:49] LABS: Alanine Aminotransferase 44 U/L (10-49); Albumin, Serum 4.1 gm/dL (3.4-4.8); Albumin/Globulin Ratio 1.7 (1.2-2.2); Alkaline Phosphatase 86 U/L (46-116); Anion Gap 10 (7-16); Aspartate Amino Transferase 19 U/L (0-34); BUN/Creatinine Ratio 11 Ratio (12-20); Bilirubin,Total 0.2 mg/dL (0.3-1.2); Blood Urea Nitrogen 9 mg/dL (9-23); Calcium 8.8 mg/dL (8.3-10.6); Calcium (Corrected) 8.8 mg/dL (8.5-10.1); Carbon Dioxide 24.0 mMol/L (20.0-31.0); Chloride 103 mMol/L (98-107); Creatinine (Component) 0.8 mg/dL (0.6-1.3); Free T3 2.8 pg/mL (2.3-4.2); Globulin 2.4 gm/dL (2.3-3.5); Glucose 167 mg/dL (74-106); Osmolality,Calculated 276 (275-295); Potassium 4.0 mMol/L (3.4-5.1); Sodium 137 mMol/L (136-145); Thyroid Stimulating Hormone 1.96 uIU/mL (0.55-4.78); Total Protein 6.5 gm/dL (5.7-8.2); eGFR > 60 See Note
== END 2024-09-18 23:59 | disposition home or self-care (01) ==
LOC: SCTC 08:04
PROVIDERS: PCP Nurse Practitioner Family; Referring Provider Nurse Practitioner Family; Visit Provider Internal Medicine Hematology & Oncology
DX: Z51.11 Encounter for antineoplastic chemotherapy (principal); C34.32 Malignant neoplasm of lower lobe, left bronchus or lung; Z87.891 Personal history of nicotine dependence; Z77.090 Contact with and (suspected) exposure to asbestos; H91.90 Unspecified hearing loss, unspecified ear; Z55.6 Problems related to health literacy; I49.9 Cardiac arrhythmia, unspecified; E87.8 Other disorders of electrolyte and fluid balance, not elsewhere classified; R63.4 Abnormal weight loss; Z68.20 Body mass index [BMI] 20.0-20.9, adult; R06.02 Shortness of breath
CPT/HCPCS: 36591; 80053; 84443; 84481; 85025; 96360; 96367; 96368; 96413; 96417; 99212; A4216; J1453; J1642; J2405; J7040; J7050; J9022; J9045; J9181; G0463

== ENCOUNTER 2024-10-02 08:30 | Outpatient (RCR) | payer MEDICAID, SELFPAY ==
[2024-09-29 09:37] LABS: Basophils # (Auto) 0.0 Thou/mm3 (0.0-0.2); Basophils % (Auto) 1 % (0-2.5); Eosinophils # (Auto) 0.0 Thou/mm3 (0.0-0.5); Eosinophils % (Auto) 1 % (0-10); Hematocrit 33.7 % (41.0-53.0); Hemoglobin 11.0 g/dL (13.5-16.0); Immature Granulocytes Auto 0.03 Thou/mm3 (0.00-0.00); Lymphocytes # (Auto) 1.6 Thou/mm3 (1.0-4.8); Lymphocytes % (Auto) 47 % (10-50); Mean Corpuscular HGB Conc 32.6 g/dl (31.0-37.0); Mean Corpuscular Hemoglobin 29.3 pg (25.0-35.0); Mean Corpuscular Volume 90 fL (80-100); Monocytes # (Auto) 0.5 Thou/mm3 (0.0-0.8); Monocytes % (Auto) 16 % (0-12); Neutrophils # (Auto) 1.2 Thou/mm3 (1.8-7.7); Neutrophils % (Auto) 35 % (37-80); Nucleated Red Blood Cell # 0.00 Thou/mm3 (0.00-0.00); Nucleated Red Blood Cell % 0 /100 WBC (0); Platelet Count 210 Thou/mm3 (140-440); RDW Standard Deviation 68.3 fL (35.1-43.9); Red Blood Count 3.75 Miln/mm3 (4.50-5.90); White Blood Count 3.4 Thou/mm3 (3.8-10.6)
[2024-09-29 09:55] LABS: Alanine Aminotransferase 13 U/L (10-49); Albumin, Serum 3.9 gm/dL (3.4-4.8); Albumin/Globulin Ratio 1.7 (1.2-2.2); Alkaline Phosphatase 60 U/L (46-116); Anion Gap 10 (7-16); Aspartate Amino Transferase 18 U/L (0-34); BUN/Creatinine Ratio 11 Ratio (12-20); Bilirubin,Total 0.2 mg/dL (0.3-1.2); Blood Urea Nitrogen 9 mg/dL (9-23); Calcium 9.1 mg/dL (8.3-10.6); Calcium (Corrected) 9.2 mg/dL (8.5-10.1); Carbon Dioxide 23.0 mMol/L (20.0-31.0); Chloride 105 mMol/L (98-107); Creatinine (Component) 0.8 mg/dL (0.6-1.3); Free T3 2.9 pg/mL (2.3-4.2); Globulin 2.3 gm/dL (2.3-3.5); Glucose 123 mg/dL (74-106); Osmolality,Calculated 275 (275-295); Potassium 4.0 mMol/L (3.4-5.1); Sodium 138 mMol/L (136-145); Thyroid Stimulating Hormone 1.79 uIU/mL (0.55-4.78); Total Protein 6.2 gm/dL (5.7-8.2); eGFR > 60 See Note
== END 2024-10-19 23:59 | disposition home or self-care (01) ==
LOC: SCTC 08:30
PROVIDERS: PCP Nurse Practitioner Family; Referring Provider Nurse Practitioner Family; Visit Provider Internal Medicine Hematology & Oncology
DX: Z51.11 Encounter for antineoplastic chemotherapy (principal); C34.32 Malignant neoplasm of lower lobe, left bronchus or lung; Z87.891 Personal history of nicotine dependence; Z77.090 Contact with and (suspected) exposure to asbestos; H91.90 Unspecified hearing loss, unspecified ear; Z55.6 Problems related to health literacy; Z63.4 Disappearance and death of family member; I49.9 Cardiac arrhythmia, unspecified; T45.1X5D Adverse effect of antineoplastic and immunosuppressive drugs, subsequent encounter; E87.6 Hypokalemia; E87.0 Hyperosmolality and hypernatremia; R63.4 Abnormal weight loss; Z68.20 Body mass index [BMI] 20.0-20.9, adult
CPT/HCPCS: 36591; 80053; 84443; 84481; 85025; 96367; 96368; 96413; 96417; A4216; J1453; J1642; J2405; J7040; J7050; J9022; J9045; J9181

== ENCOUNTER 2024-11-12 10:37 | Outpatient (RCR) | payer MEDICAID, SELFPAY ==
[2024-10-21 08:16] LABS: Basophils # (Auto) 0.0 Thou/mm3 (0.0-0.2); Basophils % (Auto) 1 % (0-2.5); Eosinophils # (Auto) 0.1 Thou/mm3 (0.0-0.5); Eosinophils % (Auto) 1 % (0-10); Hematocrit 31.9 % (41.0-53.0); Hemoglobin 10.4 g/dL (13.5-16.0); Immature Granulocytes Auto 0.02 Thou/mm3 (0.00-0.00); Lymphocytes # (Auto) 1.8 Thou/mm3 (1.0-4.8); Lymphocytes % (Auto) 33 % (10-50); Mean Corpuscular HGB Conc 32.6 g/dl (31.0-37.0); Mean Corpuscular Hemoglobin 31.2 pg (25.0-35.0); Mean Corpuscular Volume 96 fL (80-100); Monocytes # (Auto) 0.6 Thou/mm3 (0.0-0.8); Monocytes % (Auto) 10 % (0-12); Neutrophils # (Auto) 3.0 Thou/mm3 (1.8-7.7); Neutrophils % (Auto) 55 % (37-80); Nucleated Red Blood Cell # 0.00 Thou/mm3 (0.00-0.00); Nucleated Red Blood Cell % 0 /100 WBC (0); Platelet Count 242 Thou/mm3 (140-440); RDW Standard Deviation 78.0 fL (35.1-43.9); Red Blood Count 3.33 Miln/mm3 (4.50-5.90); White Blood Count 5.4 Thou/mm3 (3.8-10.6)
[2024-10-21 08:48] LABS: Alanine Aminotransferase 10 U/L (10-49); Albumin, Serum 3.9 gm/dL (3.4-4.8); Albumin/Globulin Ratio 1.9 (1.2-2.2); Alkaline Phosphatase 59 U/L (46-116); Anion Gap 11 (7-16); Aspartate Amino Transferase 13 U/L (0-34); BUN/Creatinine Ratio 16 Ratio (12-20); Bilirubin,Total 0.2 mg/dL (0.3-1.2); Blood Urea Nitrogen 13 mg/dL (9-23); Calcium 9.2 mg/dL (8.3-10.6); Calcium (Corrected) 9.3 mg/dL (8.5-10.1); Carbon Dioxide 23.2 mMol/L (20.0-31.0); Chloride 107 mMol/L (98-107); Creatinine (Component) 0.8 mg/dL (0.6-1.3); Free T4 (Free Thyroxine) 1.51 ng/dL (0.89-1.76); Globulin 2.1 gm/dL (2.3-3.5); Glucose 120 mg/dL (74-106); Osmolality,Calculated 282 (275-295); Potassium 4.1 mMol/L (3.4-5.1); Sodium 141 mMol/L (136-145); Thyroid Stimulating Hormone 1.37 uIU/mL (0.55-4.78); Total Protein 6.0 gm/dL (5.7-8.2); eGFR > 60 See Note
[2024-11-10 16:20] LABS: Basophils # (Auto) 0.1 Thou/mm3 (0.0-0.2); Basophils % (Auto) 1 % (0-2.5); Eosinophils # (Auto) 0.0 Thou/mm3 (0.0-0.5); Eosinophils % (Auto) 0 % (0-10); Hematocrit 32.7 % (41.0-53.0); Hemoglobin 10.8 g/dL (13.5-16.0); Immature Granulocytes Auto 0.04 Thou/mm3 (0.00-0.00); Lymphocytes # (Auto) 1.9 Thou/mm3 (1.0-4.8); Lymphocytes % (Auto) 32 % (10-50); Mean Corpuscular HGB Conc 33.0 g/dl (31.0-37.0); Mean Corpuscular Hemoglobin 32.4 pg (25.0-35.0); Mean Corpuscular Volume 98 fL (80-100); Monocytes # (Auto) 0.6 Thou/mm3 (0.0-0.8); Monocytes % (Auto) 10 % (0-12); Neutrophils # (Auto) 3.4 Thou/mm3 (1.8-7.7); Neutrophils % (Auto) 56 % (37-80); Nucleated Red Blood Cell # 0.00 Thou/mm3 (0.00-0.00); Nucleated Red Blood Cell % 0 /100 WBC (0); Platelet Count 249 Thou/mm3 (140-440); RDW Standard Deviation 79.7 fL (35.1-43.9); Red Blood Count 3.33 Miln/mm3 (4.50-5.90); White Blood Count 6.1 Thou/mm3 (3.8-10.6)
[2024-11-10 16:42] LABS: Alanine Aminotransferase 11 U/L (10-49); Albumin, Serum 4.0 gm/dL (3.4-4.8); Albumin/Globulin Ratio 1.9 (1.2-2.2); Alkaline Phosphatase 61 U/L (46-116); Anion Gap 9 (7-16); Aspartate Amino Transferase < 8 U/L (0-34); BUN/Creatinine Ratio 14 Ratio (12-20); Bilirubin,Total 0.2 mg/dL (0.3-1.2); Blood Urea Nitrogen 14 mg/dL (9-23); Calcium 9.0 mg/dL (8.3-10.6); Calcium (Corrected) 9.0 mg/dL (8.5-10.1); Carbon Dioxide 25.5 mMol/L (20.0-31.0); Chloride 107 mMol/L (98-107); Creatinine (Component) 1.0 mg/dL (0.6-1.3); Free T4 (Free Thyroxine) 1.65 ng/dL (0.89-1.76); Globulin 2.1 gm/dL (2.3-3.5); Glucose 111 mg/dL (74-106); Osmolality,Calculated 282 (275-295); Potassium 3.9 mMol/L (3.4-5.1); Sodium 141 mMol/L (136-145); Thyroid Stimulating Hormone 1.59 uIU/mL (0.55-4.78); Total Protein 6.1 gm/dL (5.7-8.2); eGFR > 60 See Note
--- NOTE | 2024-11-17 00:51 | CTCFLWUP_ITS ---
Patient: ENRIQUE HILLS : 1960 Page 3 of 5 FOLLOW UP NOTE DATE OF SERVICE: 11/11/2024 NAME: ENRIQUE HILLS ACCOUNT: [id number] : 1960 AGE: 63 INTERVAL HISTORY: Enrique Hills, a male with advanced small cell lung cancer, is here for follow- up. Patient is doing well and tolerating the treatment well. Patient has completed chemotherapy and is now on maintenance immunotherapy ONCOLOGY HISTORY: DIAGNOSIS: Malignant neoplasm of lower lobe, left bronchus or lung [ICD10] C34.32 DATE OF DIAGNOSIS: 05/29/2024 STAGE/TNM: ADRIANA T4 NX M1 TREATMENT HISTORY: Care?Plan Start?Date Cycle Day Intent 2?Small?cell,?Atezo?maintenanc?[id number]?study 08/19/2024 1 21 Palliative Carbo,?Etoposide?NSCLC 07/07/2024 1 21 Palliative HISTORY OF PRESENT ILLNESS: Chief Complaint Recently diagnosed with small cell lung cancer, shortness of breath History of Present Illness Enrique Hills is a male patient with a history of smoking and asbestos exposure who was recently diagnosed with advanced small cell lung cancer. He presents for oncology evaluation and treatment initiation. Mr. Hills reports that he was diagnosed with small cell lung cancer on May 15, 2024, while he was in the hospital with his , who was dying from the same condition. He experienced significant shortness of breath at that time, which led to his hospitalization and subsequent diagnosis. Mr. Hills has a history of smoking 2-3 packs of cigarettes per day but quit approximately 17-18 years ago. 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 The patient recently moved from [place] to [place], partly due to health reasons and insurance coverage. He now has Medicaid, which allows him to access care in [place]. Mr. Hills is experiencing significant life stressors, including the recent loss of his on May 15, 2024, and challenges with managing paperwork and daily tasks without her support. He reports difficulty with reading, writing, and math skills, which is impacting his ability to manage his affairs independently. The patient expresses feelings of being overwhelmed and uncertainty about how to proceed with various aspects of his life, including managing his 's teacher custodial benefits. Mr. Hills mentions having a hearing loss at baseline, which affects his ability to communicate effectively. He has limited social support, with a sister living in [place], [place], being his primary local contact. The patient reports challenges with nutrition and meal preparation since his 's passing. Review of Systems HEENT: Positive for hearing loss. Respiratory: Positive for shortness of breath. OTHER MEDICAL HISTORY/CONDITIONS: Small cell lung cancer - dx 06/08/24 COPD Depression Surgical repair left wrist fracture -t 2019 Laser surgery both eye - 8 yrs ago FAMILY HISTORY: Cancer History:?denies imediate family hx Patient?denies?family?cancer?history. 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 Tobacco Use:?Quit 18yrs ago - Smoked 203 PPD x 25yrs ETOH Use:?Quit 7 yrs ago- Drank beer every weekend x 25yrs Drug?Note:?Uses?gummies?to?sleep Social History Note:?Lives alone - sister lives nearby MEDICATIONS: 1. Cardizem - 120 mg 1 tab Each Day 2. Compazine - 5 mg 1 tab as needed 3. Compazine - 10 mg 10 mg three times a day prn nausea 4. Cordarone - 200 mg tab Twice a Day 5. mirtazapine - 15 mg 1 tab In the evening 6. NexIUM Packet - 40 mg Daily 7. omeprazole - 40 mg 1 Capsule In the morning 8. ondansetron - 8 mg 1 tab as needed 9. potassium chloride - 8 mEq 1 Capsule Daily 10. Zofran - 8 mg 8 mg three times a day prn nausea 11. Zofran - 8 mg 1 tab Three times a day Medications Last Reconciled by Sonya Vargas MD on 11/11/2024 ALLERGIES: No Known Drug Allergies REVIEW OF SYSTEMS: A complete 14-point review of systems was performed and is negative except as noted in interval history. PHYSICAL EXAMINATION: VITAL SIGNS: Temperature?98.9, B/P?132/77, Oxygen?Saturation?97% Weight?158?lbs (Change?since?11/10/24:?5.8?lbs) PAIN: 0 - No pain ECOG Performance Status: None GENERAL APPEARANCE: Appears well, in no apparent distress, appropriately interactive. HEENT: Normocephalic, no temporal wasting, normal conjunctiva, no scleral icterus, normal hearing, lips without lesions, neck normal range of motion. CARDIOVASCULAR: Not assessed. PULMONARY: Normal respiratory effort, no respiratory distress or use of accessory muscles, speaking in full sentences, no tachypnea. EXTREMITIES: No pedal edema or cyanosis. SKIN: Normal skin appearance. NEUROLOGIC: Alert and oriented x4. PSHYCHIATRIC: Appropriate affect, mood normal, behavior normal, intact thought and speech. LABORATORY DATA: I have personally reviewed and interpreted each of the patient?s relevant lab tests, abnormal findings are below: Date 10/21/24 11/10/24 ??WHITE?BLOOD?COUNT?(Thou/mm3) 5.4 6.1 ??RED?BLOOD?COUNT?(Miln/mm3) 3.33?L 3.33?L ??HEMOGLOBIN?(gm/dl) 10.4?L 10.8?L ??HEMATOCRIT?(%) 31.9?L 32.7?L ??PLATELET?COUNT?(Thou/mm3) 242 249 ??NEUTROPHILS?%,?AUTO?(%) 55 56 ??LYMPH?%,?AUTO?(%) 33 32 ??NEUTROPHILS,?AUTO?(Thou/mm3) 3.0 3.4 ??GLUCOSE,RANDOM?(mg/dL) 120?H 111?H ??BLOOD?UREA?NITROGEN?(mg/dL) 13 14 ??CREATININE?(mg/dL) 0.80 1.00 ??SODIUM?(mmol/L) 141 141 ??POTASSIUM?(mmol/L) 4.1 3.9 ??CHLORIDE?(mmol/L) 107 107 ??CrCl?(CandG)?(ml/min) 90.78 74.79 ??AST/SGOT?(Unit/L) 13 <?8 ??ALT/SGPT?(Unit/L) 10 11 ??ALKALINE?PHOSPHATASE?(Unit/L) 59 61 ??BILIRUBIN,?TOTAL?(mg/dL) 0.2?L 0.2?L ??PROTEIN?TOTAL?(gm/dl) 6.0 6.1 ??ALBUMIN,?SERUM?(gm/dl) 3.9 4.0 ??GLOBULIN?(gm/dl) 2.1?L 2.1?L ??ALBUMIN/GLOBULIN?RATIO 1.9 1.9 ??CALCIUM,?SERUM?(mg/dL) 9.2 9.0 ??CALCIUM?SERUM?(CORRECTED)?(mg/dL) 9.3 9.0 ASSESSMENT/PLAN: Enrique Hills, male, 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 Small Cell Lung Cancer Assessment: Mr. Hills has been diagnosed with advanced stage small cell lung cancer. CT scan on 04-30-2024 revealed a large subcarinal tumor mass (10 x 4.6 x 8.6 cm) surrounding the left main bronchus, a pulmonary mass in the left lower lobe (4.6 cm), and a left adrenal nodule (23 mm). Biopsy of the left lung mass on 05-29-2024 confirmed small cell lung cancer. The patient has a history of smoking 2-3 packs per day but quit 17-18 years ago. 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 The cancer is considered aggressive and advanced, requiring immediate treatment initiation. Patient completed chemotherapy with carboplatin AUC 5 day 1, etoposide 100mg/m2 days 1-3, and atezolizumab 1200 mg day 1 every 21 days Patient is now on maintenance immunotherapy cycle [address] scan to evaluate for response to treatment. Patient say his scan is already scheduled hearing Loss Assessment: Mr. Hills has a baseline hearing loss, which may impact his ability to understand and follow medical instructions. Hearing is stable Plan: - Ensure all instructions are provided in writing for the patient and his sister - Speak clearly and confirm patient understanding during consultations Psychosocial Concerns Assessment: Mr. Hills is recently , having lost his to small cell lung cancer on May 15. He expresses difficulty in managing paperwork and daily tasks without his 's assistance. The patient has limited education (6th grade) and reports challenges with reading, writing, and math. He has recently relocated from [place] to [place], purchasing a house near his sister in [place] for support and access to healthcare. Plan: Advised to continue following with social work supervisor Cardiac Arrhythmia Assessment: Patient experienced cardiac arrhythmia after the third cycle of chemotherapy, requiring emergency room visit. This suggests a potential cardiac complication related to cancer treatment or disease progression. The patient currently does not have a soft tile setter due to insurance limitations ([employer] coverage). Plan: - Urgent cardiology referral - Request earlier appointment than October 22 due to recent arrhythmia - Monitor cardiac symptoms closely during chemotherapy - Educate patient on importance of follow-up with soft tile setter ORDERS: Order # Description [id number] MD Follow Up 2 Months [id number] Lab Appointment [id number] CBC + Comprehensive Metabolic Panel [id number] Lab Appointment RETURN TO CLINIC: I reviewed the diagnosis, prognosis, and recommended treatment/procedure options with the patient (and/or their legal sales representative advertising), including the potential benefits, risks, side effects and alternative therapies. We also discussed the option of no treatment and the possibility of clinical trial participation, if applicable. All questions were addressed, and they demonstrated understanding. They provided informed consent to proceed with the proposed plan of care. BILLING AND COMPLIANCE: I reviewed external records from providers outside my specialty as summarized above. I spent a total of 50 minutes on this patient?s care on the day of their visit excluding time spent related to any billed procedures. This time includes time spent with the patient as well as time spent documenting in the medical record, reviewing patients records and tests, obtaining history, placing orders, communicating with other healthcare professionals, counseling the patient, family or caregiver, and/or care coordination for the diagnoses above. Electronically Signed by: {Object.Sanct_ID*[email or web address]@M}, {Object.Sanct_ID*PnP.Suffix@U} D: {Object.Sanct_Date} T: {Object.Sanct_Time} CC: PCP: Referring: Adriel Appiah This document was completed utilizing speech recognition software. Grammatical errors, random word insertions, pronoun errors, and incomplete sentences are an occasional consequence of this system due to software limitations, ambient noise, and hardware issues. Any formal questions or concerns about the content, text or information contained within the body of this dictation should be directly addressed to the provider for clarification.
== END 2024-11-18 23:59 | disposition home or self-care (01) ==
LOC: SCTC 10:37
PROVIDERS: PCP Nurse Practitioner Family; Referring Provider Nurse Practitioner Family; Visit Provider Internal Medicine Hematology & Oncology
DX: Z51.12 Encounter for antineoplastic immunotherapy (principal); C34.32 Malignant neoplasm of lower lobe, left bronchus or lung; Z87.891 Personal history of nicotine dependence; Z77.090 Contact with and (suspected) exposure to asbestos; H91.90 Unspecified hearing loss, unspecified ear; Z55.6 Problems related to health literacy; I49.9 Cardiac arrhythmia, unspecified
CPT/HCPCS: 36591; 80053; 84439; 84443; 85025; 96367; 96368; 96372; 96413; 96417; 99212; A4216; J1453; J1642; J2405; J3490; J7040; J7050; J9022; J9045; J9181; Q5101; G0463

== ENCOUNTER 2024-12-08 07:23 | Outpatient (RCR) | payer MEDICAID, SELFPAY ==
[2024-12-05 10:27] LABS: Basophils # (Auto) 0.1 Thou/mm3 (0.0-0.2); Basophils % (Auto) 1 % (0-2.5); Eosinophils # (Auto) 0.2 Thou/mm3 (0.0-0.5); Eosinophils % (Auto) 4 % (0-10); Hematocrit 33.1 % (41.0-53.0); Hemoglobin 11.7 g/dL (13.5-16.0); Immature Granulocytes Auto 0.02 Thou/mm3 (0.00-0.00); Lymphocytes # (Auto) 2.1 Thou/mm3 (1.0-4.8); Lymphocytes % (Auto) 30 % (10-50); Mean Corpuscular HGB Conc 35.3 g/dl (31.0-37.0); Mean Corpuscular Hemoglobin 34.3 pg (25.0-35.0); Mean Corpuscular Volume 97 fL (80-100); Monocytes # (Auto) 0.6 Thou/mm3 (0.0-0.8); Monocytes % (Auto) 9 % (0-12); Neutrophils # (Auto) 3.9 Thou/mm3 (1.8-7.7); Neutrophils % (Auto) 57 % (37-80); Nucleated Red Blood Cell # 0.00 Thou/mm3 (0.00-0.00); Nucleated Red Blood Cell % 0 /100 WBC (0); Platelet Count 283 Thou/mm3 (140-440); RDW Standard Deviation 52.5 fL (35.1-43.9); Red Blood Count 3.41 Miln/mm3 (4.50-5.90); White Blood Count 6.9 Thou/mm3 (3.8-10.6)
[2024-12-05 10:45] LABS: Alanine Aminotransferase 12 U/L (10-49); Albumin, Serum 3.9 gm/dL (3.4-4.8); Albumin/Globulin Ratio 1.6 (1.2-2.2); Alkaline Phosphatase 69 U/L (46-116); Anion Gap 12 (7-16); Aspartate Amino Transferase 13 U/L (0-34); BUN/Creatinine Ratio 9 Ratio (12-20); Bilirubin,Total 0.2 mg/dL (0.3-1.2); Blood Urea Nitrogen 9 mg/dL (9-23); Calcium 8.8 mg/dL (8.3-10.6); Calcium (Corrected) 8.9 mg/dL (8.5-10.1); Carbon Dioxide 23.6 mMol/L (20.0-31.0); Chloride 103 mMol/L (98-107); Creatinine (Component) 1.0 mg/dL (0.6-1.3); Globulin 2.5 gm/dL (2.3-3.5); Glucose 139 mg/dL (74-106); Osmolality,Calculated 278 (275-295); Potassium 3.8 mMol/L (3.4-5.1); Sodium 139 mMol/L (136-145); Thyroid Stimulating Hormone 1.60 uIU/mL (0.55-4.78); Total Protein 6.4 gm/dL (5.7-8.2); eGFR > 60 See Note
== END 2024-12-19 23:59 | disposition home or self-care (01) ==
LOC: SCTC 07:23
PROVIDERS: PCP Nurse Practitioner Family; Referring Provider Nurse Practitioner Family; Visit Provider Internal Medicine Hematology & Oncology
DX: Z51.11 Encounter for antineoplastic chemotherapy (principal); C34.32 Malignant neoplasm of lower lobe, left bronchus or lung; Z87.891 Personal history of nicotine dependence; Z77.090 Contact with and (suspected) exposure to asbestos; Z55.6 Problems related to health literacy; Z63.4 Disappearance and death of family member; I49.9 Cardiac arrhythmia, unspecified; H91.90 Unspecified hearing loss, unspecified ear
CPT/HCPCS: 36591; 80053; 84443; 85025; 96413; A4216; J1642; J7040; J7050; J9022

== ENCOUNTER → 2024-12-09 | Outpatient (CLI) | payer MEDICAID, SELFPAY ==
--- NOTE | 2024-12-09 10:00 | XR_ITS ---
Examination: CT chest, with intravenous contrast. CT abdomen with intravenous contrast CT abdomen without intravenous contrast Sagittal and coronal 2-D reconstructions. Exam date and time: December 09, 2024, 1053 hours, comparison CT chest August 22, 2024, CT chest 10/02/2024 INDICATIONS: Diagnosis malignant neoplasm left lower lobe, large tumor mass subcarinal and left lower lobe on CT chest November 28, 2024, restaging CTDI:vol (mGy) 11.7 DLP: (mGycm) 656 Technique: Multiple 3.0 mm axial sections of the chest abdomen post intravenous administration 60 cc Isovue 370, CT abdomen images without contrast Bone and lung density settings are obtained. Sagittal and coronal 2-D reconstructions have been obtained. Low dose protocols were performed. One or more of the following dose reduction techniques were used; automated exposure control, adjustment of the mA and/or KV according to patient size, use of iterative reconstruction technique. Findings: Marked decrease in size of subcarinal and left lower lobe tumor mass, mediolateral dimension 6.4 cm, AP dimension 5.0 cm, compared to 12.6 cm 7.2 cm measurements on the CT chest August 22, 2024 Atelectasis in the left lower lung zone Minimal left pleural fluid Calcified granuloma right upper lobe Normal heart size No interval mediastinal lymphadenopathy No visualized liver splenic lesion No gallstones No pancreatic or adrenal mass Upper pole 4.9 cm left renal cyst Aortic calcification No abdominal lymphadenopathy No ascites Abundant stool in the colon IMPRESSION: Marked decrease in size of subcarinal left lower lobe tumor mass, 6.4 x 5.0 cm compared to 12.6 x 7.2 cm on August 22, 2024
== END | disposition home or self-care (01) ==
LOC: SCAT 09:31
PROVIDERS: PCP Internal Medicine; Referring Provider Internal Medicine Hematology & Oncology; Visit Provider Internal Medicine Hematology & Oncology
DX: R91.8 Other nonspecific abnormal finding of lung field (principal); C34.32 Malignant neoplasm of lower lobe, left bronchus or lung
CPT/HCPCS: 71260; 74170; A4649; Q9967

== ENCOUNTER 2024-12-29 07:19 | Outpatient (RCR) | payer MEDICAID, SELFPAY ==
[2024-12-26 12:44] LABS: Basophils # (Auto) 0.0 Thou/mm3 (0.0-0.2); Basophils % (Auto) 1 % (0-2.5); Eosinophils # (Auto) 0.3 Thou/mm3 (0.0-0.5); Eosinophils % (Auto) 4 % (0-10); Hematocrit 37.8 % (41.0-53.0); Hemoglobin 12.1 g/dL (13.5-16.0); Immature Granulocytes Auto 0.03 Thou/mm3 (0.00-0.00); Lymphocytes # (Auto) 2.1 Thou/mm3 (1.0-4.8); Lymphocytes % (Auto) 31 % (10-50); Mean Corpuscular HGB Conc 32.0 g/dl (31.0-37.0); Mean Corpuscular Hemoglobin 32.4 pg (25.0-35.0); Mean Corpuscular Volume 101 fL (80-100); Monocytes # (Auto) 0.5 Thou/mm3 (0.0-0.8); Monocytes % (Auto) 7 % (0-12); Neutrophils # (Auto) 3.9 Thou/mm3 (1.8-7.7); Neutrophils % (Auto) 58 % (37-80); Nucleated Red Blood Cell # 0.00 Thou/mm3 (0.00-0.00); Nucleated Red Blood Cell % 0 /100 WBC (0); Platelet Count 203 Thou/mm3 (140-440); RDW Standard Deviation 54.4 fL (35.1-43.9); Red Blood Count 3.73 Miln/mm3 (4.50-5.90); White Blood Count 6.7 Thou/mm3 (3.8-10.6)
[2024-12-26 13:05] LABS: Alanine Aminotransferase < 7 U/L (10-49); Albumin, Serum 4.3 gm/dL (3.4-4.8); Albumin/Globulin Ratio 2.2 (1.2-2.2); Alkaline Phosphatase 53 U/L (46-116); Anion Gap 12 (7-16); Aspartate Amino Transferase 13 U/L (0-34); BUN/Creatinine Ratio 16 Ratio (12-20); Bilirubin,Total 0.3 mg/dL (0.3-1.2); Blood Urea Nitrogen 16 mg/dL (9-23); Calcium 8.6 mg/dL (8.3-10.6); Calcium (Corrected) 8.6 mg/dL (8.5-10.1); Carbon Dioxide 21.5 mMol/L (20.0-31.0); Chloride 108 mMol/L (98-107); Creatinine (Component) 1.0 mg/dL (0.6-1.3); Globulin 2.0 gm/dL (2.3-3.5); Glucose 106 mg/dL (74-106); Osmolality,Calculated 282 (275-295); Potassium 3.9 mMol/L (3.4-5.1); Sodium 141 mMol/L (136-145); Thyroid Stimulating Hormone 1.35 uIU/mL (0.55-4.78); Total Protein 6.3 gm/dL (5.7-8.2); eGFR > 60 See Note
== END 2025-01-18 23:59 | disposition home or self-care (01) ==
LOC: SCTC 07:19
PROVIDERS: Referring Provider Internal Medicine Hematology & Oncology; Visit Provider Internal Medicine Hematology & Oncology
DX: Z51.11 Encounter for antineoplastic chemotherapy (principal); C34.32 Malignant neoplasm of lower lobe, left bronchus or lung; Z87.891 Personal history of nicotine dependence; Z77.090 Contact with and (suspected) exposure to asbestos; H91.90 Unspecified hearing loss, unspecified ear; Z55.6 Problems related to health literacy; I49.9 Cardiac arrhythmia, unspecified
CPT/HCPCS: 36591; 80053; 84443; 85025; 96413; A4216; J1642; J7040; J7050; J9022

== ENCOUNTER → 2025-01-29 | Outpatient (CLI) | payer MEDICAID, SELFPAY ==
--- NOTE | 2025-01-29 16:05 | XR_ITS ---
Examination: MRI of brain without intravenous contrast. MRI brain with intravenous contrast. Date and time of exam: January 29, 2025, 1624 hours INDICATIONS: Diagnosis malignant neoplasm lung, staging Technique: Multiple axial and sagittal images of the brain to been obtained. Siemens high-resolution 1.52 Jolly short bore scanner utilized. Sagittal sections, T1 weighted images, TR 500, TE 14, are performed. Axial sections proton-density and T2-weighted images have been obtained. Inversion recovery axial images, TR 9260, TE 111, TR 2500. Diffusion weighted images, axial sections, TR 4800, TE 128, B value 1000. Axial sections, ADC map, TR 4800, TE 128. Axial and coronal images were also obtained post 15 cc gadolinium administered intravenously. Findings:: Enlargement of the sella turcica is not present. The optic chiasm and infundibular stalk are not remarkable. There is no localized enlargement of the medulla or theo. Fourth ventricle and cerebellar tonsils appear normal in position. No subacute area of hemorrhage density is seen. Fourth ventricle is midline. Mass in the cerebellopontine angle region is not evident. 7th and 8th nerve complexes exhibit symmetry Globes are symmetrical Orbital musculature including medial lateral rectus muscles do not exhibit abnormality Increased white matter signal is evident cerebellar and cerebral hemispheres, multiple images Effacement of the cortical sulcal markings is not identified. Mass effect upon the ventricular system is not identified. Diffusion-weighted images demonstrate no focus of restricted diffusion Contrast images demonstrate enhancing metastases: Right cerebellar hemisphere 7 mm Superior vermis 10 mm, 15 mm Left occipital lobe 18 mm Right occipital lobe 11 mm Right caudate nucleus 6 mm Right frontal parietal lobe 9 mm Left posterior parietal lobe 14 mm Impression: Multiple cerebellar and cerebral metastatic lesions No mass effect upon the ventricular system No cerebellar tonsillar herniation
== END | disposition home or self-care (01) ==
LOC: SMRI 15:30
PROVIDERS: Referring Provider Internal Medicine Hematology & Oncology; Visit Provider Internal Medicine Hematology & Oncology
DX: G93.89 Other specified disorders of brain (principal); C34.32 Malignant neoplasm of lower lobe, left bronchus or lung
CPT/HCPCS: 70553; A9577

== ENCOUNTER 2025-02-09 09:19 | Outpatient (RCR) | payer MEDICAID, SELFPAY ==
[2025-01-19 11:32] LABS: Basophils # (Auto) 0.1 Thou/mm3 (0.0-0.2); Basophils % (Auto) 1 % (0-2.5); Eosinophils # (Auto) 0.3 Thou/mm3 (0.0-0.5); Eosinophils % (Auto) 4 % (0-10); Hematocrit 38.5 % (41.0-53.0); Hemoglobin 12.6 g/dL (13.5-16.0); Immature Granulocytes Auto 0.01 Thou/mm3 (0.00-0.00); Lymphocytes # (Auto) 2.3 Thou/mm3 (1.0-4.8); Lymphocytes % (Auto) 34 % (10-50); Mean Corpuscular HGB Conc 32.7 g/dl (31.0-37.0); Mean Corpuscular Hemoglobin 31.5 pg (25.0-35.0); Mean Corpuscular Volume 96 fL (80-100); Monocytes # (Auto) 0.4 Thou/mm3 (0.0-0.8); Monocytes % (Auto) 7 % (0-12); Neutrophils # (Auto) 3.7 Thou/mm3 (1.8-7.7); Neutrophils % (Auto) 55 % (37-80); Nucleated Red Blood Cell # 0.00 Thou/mm3 (0.00-0.00); Nucleated Red Blood Cell % 0 /100 WBC (0); Platelet Count 210 Thou/mm3 (140-440); RDW Standard Deviation 49.2 fL (35.1-43.9); Red Blood Count 4.00 Miln/mm3 (4.50-5.90); White Blood Count 6.7 Thou/mm3 (3.8-10.6)
[2025-01-19 11:58] LABS: Alanine Aminotransferase 8 U/L (10-49); Albumin, Serum 4.3 gm/dL (3.4-4.8); Albumin/Globulin Ratio 1.9 (1.2-2.2); Alkaline Phosphatase 53 U/L (46-116); Anion Gap 8 (7-16); Aspartate Amino Transferase 11 U/L (0-34); BUN/Creatinine Ratio 11 Ratio (12-20); Bilirubin,Total 0.3 mg/dL (0.3-1.2); Blood Urea Nitrogen 11 mg/dL (9-23); Calcium 9.2 mg/dL (8.3-10.6); Calcium (Corrected) 9.2 mg/dL (8.5-10.1); Carbon Dioxide 24.3 mMol/L (20.0-31.0); Chloride 109 mMol/L (98-107); Creatinine (Component) 1.0 mg/dL (0.6-1.3); Globulin 2.3 gm/dL (2.3-3.5); Glucose 92 mg/dL (74-106); Osmolality,Calculated 280 (275-295); Potassium 4.1 mMol/L (3.4-5.1); Sodium 141 mMol/L (136-145); Thyroid Stimulating Hormone 1.52 uIU/mL (0.55-4.78); Total Protein 6.6 gm/dL (5.7-8.2); eGFR > 60 See Note
--- NOTE | 2025-01-21 14:36 | CTCFLWUP_ITS ---
Patient: ENRIQUE HILLS : 1960 Page 3 of 6 FOLLOW UP NOTE DATE OF SERVICE: 01/21/2025 NAME: ENRIQUE HILLS ACCOUNT: [id number] : 1960 AGE: 64 INTERVAL HISTORY: Enrique Hills, a male with advanced small cell lung cancer, is here for follow- up. Patient is doing well and tolerating the treatment well. Patient has completed chemotherapy and is now on maintenance immunotherapy. Regained baseline weight . no new symptoms. ONCOLOGY HISTORY: DIAGNOSIS: Malignant neoplasm of lower lobe, left bronchus or lung [ICD10] C34.32 DATE OF DIAGNOSIS: 05/29/2024 STAGE/TNM: ADRIANA T4 NX M1 TREATMENT HISTORY: Care?Plan Start?Date Cycle Day Intent 2?Small?cell,?Atezo?maintenanc?[id number]?study 08/19/2024 1 21 Palliative Carbo,?Etoposide?NSCLC 07/07/2024 1 21 Palliative HISTORY OF PRESENT ILLNESS: Chief Complaint Recently diagnosed with small cell lung cancer, shortness of breath History of Present Illness Enrique Hills is a male patient with a history of smoking and asbestos exposure who was recently diagnosed with advanced small cell lung cancer. He presents for oncology evaluation and treatment initiation. Mr. Hills reports that he was diagnosed with small cell lung cancer on May 15, 2024, while he was in the hospital with his , who was dying from the same condition. He experienced significant shortness of breath at that time, which led to his hospitalization and subsequent diagnosis. Mr. Hills has a history of smoking 2-3 packs of cigarettes per day but quit approximately 17-18 years ago. 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 The patient recently moved from [place] to [place], partly due to health reasons and insurance coverage. He now has Medicaid, which allows him to access care in [place]. Mr. Hills is experiencing significant life stressors, including the recent loss of his on May 15, 2024, and challenges with managing paperwork and daily tasks without her support. He reports difficulty with reading, writing, and math skills, which is impacting his ability to manage his affairs independently. The patient expresses feelings of being overwhelmed and uncertainty about how to proceed with various aspects of his life, including managing his 's teacher group home benefits. Mr. Hills mentions having a hearing loss at baseline, which affects his ability to communicate effectively. He has limited social support, with a sister living in [place], [place], being his primary local contact. The patient reports challenges with nutrition and meal preparation since his 's passing. Review of Systems HEENT: Positive for hearing loss. Respiratory: Positive for shortness of breath. OTHER MEDICAL HISTORY/CONDITIONS: Small cell lung cancer - dx 06/08/24 COPD Depression Surgical repair left wrist fracture -t 2019 Laser surgery both eye - 8 yrs ago FAMILY HISTORY: Cancer History:?denies imediate family hx Patient?denies?family?cancer?history. 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 Tobacco Use:?Quit 18yrs ago - Smoked 203 PPD x 25yrs ETOH Use:?Quit 7 yrs ago- Drank beer every weekend x 25yrs Drug?Note:?Uses?gummies?to?sleep Social History Note:?Lives alone - sister lives nearby MEDICATIONS: 1. Cardizem - 120 mg 1 tab Each Day 2. Compazine - 10 mg 10 mg three times a day prn nausea 3. Compazine - 5 mg 1 tab as needed 4. Cordarone - 200 mg tab Twice a Day 5. Eliquis - 5 mg 1 tab Twice a Day 6. mirtazapine - 15 mg 1 tab In the evening 7. NexIUM Packet - 40 mg Daily 8. omeprazole - 40 mg 1 Capsule In the morning 9. ondansetron - 8 mg 1 tab as needed 10. potassium chloride - 8 mEq 1 Capsule Daily 11. Zofran - 8 mg 8 mg three times a day prn nausea Medications Last Reconciled by Sonya Lutz MA on 01/21/2025 ALLERGIES: No Known Drug Allergies REVIEW OF SYSTEMS: A complete 14-point review of systems was performed and is negative except as noted in interval history. PHYSICAL EXAMINATION: VITAL SIGNS: Temperature?98.7, B/P?132/70, Oxygen?Saturation?97% Weight?165?lbs (Change?since?01/19/25:?-2.4?lbs) PAIN: 0 - No pain GENERAL APPEARANCE: Appears well, in no apparent distress, appropriately interactive. HEENT: Normocephalic, no temporal wasting, normal conjunctiva, no scleral icterus, normal hearing, lips without lesions, neck normal range of motion. CARDIOVASCULAR: Not assessed. PULMONARY: Normal respiratory effort, no respiratory distress or use of accessory muscles, speaking in full sentences, no tachypnea. EXTREMITIES: No pedal edema or cyanosis. SKIN: Normal skin appearance. NEUROLOGIC: Alert and oriented x4. PSHYCHIATRIC: Appropriate affect, mood normal, behavior normal, intact thought and speech. LABORATORY DATA: I have personally reviewed and interpreted each of the patient?s relevant lab tests, abnormal findings are below: Date 12/26/24 01/19/25 ??WHITE?BLOOD?COUNT?(Thou/mm3) 6.7 6.7 ??RED?BLOOD?COUNT?(Miln/mm3) 3.73?L 4.00?L ??HEMOGLOBIN?(gm/dl) 12.1?L 12.6?L ??HEMATOCRIT?(%) 37.8?L 38.5?L ??PLATELET?COUNT?(Thou/mm3) 203 210 ??NEUTROPHILS?%,?AUTO?(%) 58 55 ??LYMPH?%,?AUTO?(%) 31 34 ??NEUTROPHILS,?AUTO?(Thou/mm3) 3.9 3.7 ??GLUCOSE,RANDOM?(mg/dL) 106 92 ??BLOOD?UREA?NITROGEN?(mg/dL) 16 11 ??CREATININE?(mg/dL) 1.00 1.00 ??SODIUM?(mmol/L) 141 141 ??POTASSIUM?(mmol/L) 3.9 4.1 ??CHLORIDE?(mmol/L) 108?H 109?H ??CrCl?(CandG)?(ml/min) 78.88 81.20 ??AST/SGOT?(Unit/L) 13 11 ??ALT/SGPT?(Unit/L) <?7?L 8?L ??ALKALINE?PHOSPHATASE?(Unit/L) 53 53 ??BILIRUBIN,?TOTAL?(mg/dL) 0.3 0.3 ??PROTEIN?TOTAL?(gm/dl) 6.3 6.6 ??ALBUMIN,?SERUM?(gm/dl) 4.3 4.3 ??GLOBULIN?(gm/dl) 2.0?L 2.3 ??ALBUMIN/GLOBULIN?RATIO 2.2 1.9 ??CALCIUM,?SERUM?(mg/dL) 8.6 9.2 ??CALCIUM?SERUM?(CORRECTED)?(mg/dL) 8.6 9.2 ASSESSMENT/PLAN: Enrique Hills, 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 Small Cell Lung Cancer Assessment: Mr. Hills has been diagnosed with advanced stage small cell lung cancer. CT scan on 04-30-2024 revealed a large subcarinal tumor mass (10 x 4.6 x 8.6 cm) surrounding the left main bronchus, a pulmonary mass in the left lower lobe (4.6 cm), and a left adrenal nodule (23 mm). Biopsy of the left lung mass on 05-29-2024 confirmed small cell lung cancer. The patient has a history of smoking 2-3 packs per day but quit 17-18 years ago. 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 The cancer is considered aggressive and advanced, requiring immediate treatment initiation. Patient completed chemotherapy with carboplatin AUC 5 day 1, etoposide 100mg/m2 days 1-3, and atezolizumab 1200 mg day 1 every 21 days Patient is now on maintenance immunotherapy cycle [address] scan to evaluate for response to treatment. Patient cancelled his ct and now scheduled for ct and mri brain. Rtc in 4 weeks with results. Patient say his scan is already scheduled hearing Loss Assessment: Mr. Hills has a baseline hearing loss, which may impact his ability to understand and follow medical instructions. Hearing is stable Plan: - Ensure all instructions are provided in writing for the patient and his sister - Speak clearly and confirm patient understanding during consultations Psychosocial Concerns Assessment: Mr. Hills is recently , having lost his to small cell lung cancer on May 15. He expresses difficulty in managing paperwork and daily tasks without his 's assistance. The patient has limited education (6th grade) and reports challenges with reading, writing, and math. He has recently relocated from [place] to [place], purchasing a house near his sister in [place] for support and access to healthcare. Plan: Advised to continue following with marriage and family social worker Cardiac Arrhythmia Assessment: Patient experienced cardiac arrhythmia after the third cycle of chemotherapy, requiring emergency room visit. This suggests a potential cardiac complication related to cancer treatment or disease progression. The patient currently does not have a desktop publishing associate due to insurance limitations ([employer] coverage). Plan: - Urgent cardiology referral - Request earlier appointment than October 22 due to recent arrhythmia - Monitor cardiac symptoms closely during chemotherapy - Educate patient on importance of follow-up with desktop publishing associate ORDERS: Order # Description [id number] Comprehensive Metabolic Panel - 12 + CBC with Auto Diff [id number] Vitamin B-12 + Ferritin + Iron Panel + Folic Acid; Serum [id number] MD Follow Up [id number] Scan + Chest + Abdomen and Pelvis + With Contrast [id number] Lab Appointment [id number] CBC + Comprehensive Metabolic Panel [id number] Lab Appointment [id number] Lab Appointment [id number] CBC + Comprehensive Metabolic Panel [id number] Lab Appointment [id number] Lab Appointment [id number] CBC + Comprehensive Metabolic Panel [id number] Lab Appointment [id number] Lab Appointment [id number] CBC + Comprehensive Metabolic Panel [id number] Lab Appointment [id number] Lab Appointment [id number] CBC + Comprehensive Metabolic Panel [id number] Lab Appointment [id number] Lab Appointment [id number] CBC + Comprehensive Metabolic Panel [id number] Lab Appointment [id number] Lab Appointment [id number] CBC + Comprehensive Metabolic Panel [id number] Lab Appointment [id number] Lab Appointment [id number] CBC + Comprehensive Metabolic Panel [id number] Lab Appointment RETURN TO CLINIC: I reviewed the diagnosis, prognosis, and recommended treatment/procedure options with the patient (and/or their legal disability representative), including the potential benefits, risks, side effects and alternative therapies. We also discussed the option of no treatment and the possibility of clinical trial participation, if applicable. All questions were addressed, and they demonstrated understanding. They provided informed consent to proceed with the proposed plan of care. BILLING AND COMPLIANCE: I reviewed external records from providers outside my specialty as summarized above. I spent a total of 50 minutes on this patient?s care on the day of their visit excluding time spent related to any billed procedures. This time includes time spent with the patient as well as time spent documenting in the medical record, reviewing patients records and tests, obtaining history, placing orders, communicating with other healthcare professionals, counseling the patient, family or caregiver, and/or care coordination for the diagnoses above. Electronically Signed by: Ilya Fisher MD T: 2:34 PM CC: PCP: Referring: Cisco Crockett This document was completed utilizing speech recognition software. Grammatical errors, random word insertions, pronoun errors, and incomplete sentences are an occasional consequence of this system due to software limitations, ambient noise, and hardware issues. Any formal questions or concerns about the content, text or information contained within the body of this dictation should be directly addressed to the provider for clarification.
[2025-02-06 11:25] LABS: Basophils # (Auto) 0.1 Thou/mm3 (0.0-0.2); Basophils % (Auto) 1 % (0-2.5); Eosinophils # (Auto) 0.4 Thou/mm3 (0.0-0.5); Eosinophils % (Auto) 5 % (0-10); Hematocrit 44.1 % (41.0-53.0); Hemoglobin 14.5 g/dL (13.5-16.0); Immature Granulocytes Auto 0.03 Thou/mm3 (0.00-0.00); Lymphocytes # (Auto) 3.2 Thou/mm3 (1.0-4.8); Lymphocytes % (Auto) 36 % (10-50); Mean Corpuscular HGB Conc 32.9 g/dl (31.0-37.0); Mean Corpuscular Hemoglobin 31.3 pg (25.0-35.0); Mean Corpuscular Volume 95 fL (80-100); Monocytes # (Auto) 0.6 Thou/mm3 (0.0-0.8); Monocytes % (Auto) 7 % (0-12); Neutrophils # (Auto) 4.5 Thou/mm3 (1.8-7.7); Neutrophils % (Auto) 51 % (37-80); Nucleated Red Blood Cell # 0.00 Thou/mm3 (0.00-0.00); Nucleated Red Blood Cell % 0 /100 WBC (0); Platelet Count 205 Thou/mm3 (140-440); RDW Standard Deviation 48.9 fL (35.1-43.9); Red Blood Count 4.63 Miln/mm3 (4.50-5.90); White Blood Count 8.9 Thou/mm3 (3.8-10.6)
[2025-02-06 12:06] LABS: Ferritin 233 ng/mL (10.5-307.3); Iron 61 mcg/dL (65-175); Percent Iron Saturation 21 % (20-55); Total Iron Binding Capacity 282 mcg/dL (250-425); Unsaturated Iron Binding 221 (225-295)
[2025-02-06 12:07] LABS: Folate 13.25 ng/mL (>5.38); Vitamin B12 726 pg/mL (211-911)
[2025-02-06 12:16] LABS: Alanine Aminotransferase < 7 U/L (10-49); Albumin, Serum 4.5 gm/dL (3.4-4.8); Albumin/Globulin Ratio 1.7 (1.2-2.2); Alkaline Phosphatase 57 U/L (46-116); Anion Gap 14 (7-16); Aspartate Amino Transferase 15 U/L (0-34); BUN/Creatinine Ratio 10 Ratio (12-20); Bilirubin,Total 0.2 mg/dL (0.3-1.2); Blood Urea Nitrogen 12 mg/dL (9-23); Calcium 9.0 mg/dL (8.3-10.6); Calcium (Corrected) 9.0 mg/dL (8.5-10.1); Carbon Dioxide 21.2 mMol/L (20.0-31.0); Chloride 108 mMol/L (98-107); Creatinine (Component) 1.2 mg/dL (0.6-1.3); Globulin 2.7 gm/dL (2.3-3.5); Glucose 104 mg/dL (74-106); Osmolality,Calculated 284 (275-295); Potassium 3.6 mMol/L (3.4-5.1); Sodium 143 mMol/L (136-145); Thyroid Stimulating Hormone 0.79 uIU/mL (0.55-4.78); Total Protein 7.2 gm/dL (5.7-8.2); eGFR > 60 See Note
== END 2025-02-18 23:59 | disposition home or self-care (01) ==
LOC: SCTC 09:19
PROVIDERS: PCP Family Medicine; Referring Provider Family Medicine; Visit Provider Internal Medicine Hematology & Oncology
DX: Z51.12 Encounter for antineoplastic immunotherapy (principal); C34.32 Malignant neoplasm of lower lobe, left bronchus or lung; C79.31 Secondary malignant neoplasm of brain; Z87.891 Personal history of nicotine dependence; H91.90 Unspecified hearing loss, unspecified ear; Z63.4 Disappearance and death of family member; Z55.6 Problems related to health literacy; Z55.0 Illiteracy and low-level literacy; I49.9 Cardiac arrhythmia, unspecified
CPT/HCPCS: 36591; 77470; 80053; 82607; 82728; 82746; 83540; 83550; 84443; 85025; 96372; 96413; 99211; 99212; 99213; A4216; J1642; J7040; J7050; J9022; G0463